=== PATIENT | female | born 1935 | race Caucasian/White ===

== ENCOUNTER 2017-07-24 17:05 | Observation (INO) | payer MEDICARE ==
[~2017-07-24] VITALS: Ht 170.2 cm; Wt 72.0 kg
[2017-07-24] VITALS (8 sets, daily range): BP systolic 154–189; BP diastolic 74–94; PULSE 72–93; RESP 18; TEMP 97.2–97.7; O2SAT 96–97
[~2017-07-24 17:05] MED LIST: ATEN1TAB74 PO; COUM1TAB PO; CYAN1000P IM; ECOT81TA2 PO; FENO160T2 PO; FLON0.053; FURO10S PO; GLYB1TAB51 PO; LIPI40TA PO; LISI10TA PO; MONT10 PO; POTA20PA PO; PRIL40CA PO; SYMB80AE INH; WARF2TAB PO
[2017-07-24] MEDS ORDERED: VITA1000 PO (17:11)
[2017-07-24] MEDS ORDERED: SYMB80AE INH (17:11)
[2017-07-24] MEDS ORDERED: WARF4TAB51 PO (17:11)
[2017-07-24] MEDS ORDERED: FENO1CAP29 PO (17:11)
[2017-07-24] MEDS ORDERED: LISI10TA3 PO (17:11)
[2017-07-24] MEDS ORDERED: IPRA0.06 EACH NARE (17:11)
[2017-07-24] MEDS ORDERED: OMEP40CA2 PO (17:11)
[2017-07-24] MEDS ORDERED: GLIP5TAB8 PO (17:11)
[2017-07-24] MEDS ORDERED: ATOR40TA16 PO (17:11)
[2017-07-24] MEDS ORDERED: ATEN50TA PO (17:11)
--- NOTE | 2017-07-24 17:23 | PD ---
HPI Chief Complaint: Chest Pain Time Seen by Provider: 17:23 Travel History International Travel<30 days: No Contact w/Intl Traveler<30days: No Traveled to known affect area: No History of Present Illness HPI 81-year-old female came to the emergency room with history of chest pain bilaterally running all the way across in the lower part of her chest. Patient' s that this is been going on since this morning. Exertion or movement makes the pain worse. Laying down makes the pain go away. Currently she is 0 out of 10. It is no radiation of the pain. Patient has history of hypertension, diabetes, A. fib. She is not a smoker. 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 She is due for carotid endarterectomy next month. No associated symptoms like shortness of breath, dizziness, lightheadedness or syncopal episode. PFSH Past Medical History Narrative Medical This to her past medical, surgical, social and family history is reviewed from the nursing note. Hx Anticoagulant Therapy: Yes Arthritis: Yes Asthma: Yes Atrial Fibrillation: Yes Blood Disorders: No Anxiety: Yes Depression: Yes Heart Rhythm Problems: Yes (A FIB) Cancer: Yes (SKIN CANCER FOREHEAD) Cardiovascular Problems: Yes High Cholesterol: Yes Chemotherapy: No Chest Pain: No Congestive Heart Failure: No COPD: Yes Diabetes: Yes Patient Takes Glucophage: No Diminished Hearing: No Endocrine: Yes Gastrointestinal Disorders: Yes (GERD) GERD: Yes Glaucoma: No Genitourinary: No Hepatitis: No Hiatal Hernia: No Hypertension: Yes Immune Disorder: No Medical other: Yes (ANEMIA,REFLUX, GERD) Musculoskeletal: Yes (ARTHRITIS) Neurologic: No Psychiatric: No Reproductive: No Respiratory: Yes (ASTHMA, COPD, BRONCHITIES, SLEEP APNEA W CPAP) Immunizations Current: Yes Migraines: Yes Myocardial Infarction: No Sickle Cell Disease: No Sleep Apnea: Yes Thyroid Disease: Yes (HX OF) Influenza Vaccination: Yes ?: Not Menopausal: Yes Past Surgical History Abdominal Surgery: Yes (APPENDECTOMY ) Appendectomy: Yes Body Medical Devices: CEMENT BACK (KYPHOPLASTY) Cardiac Surgery: No Ear Surgery: No Endocrine Surgery: No Eye Surgery: No Genitourinary Surgery: No Gynecologic Surgery: No Oral Surgery: Yes (T & A) Pacemaker: No Thoracic Surgery: No Other Surgery: Yes (HERNIA REPAIR) Social History Alcohol Use: No Tobacco Use: No (QUIT LONG AGO) Substance Use: No Allergies-Medications (Allergen,Severity, Reaction): Coded Allergies: No Known Allergies (Verified Allergy, Unknown, 07/24/17) Comments No known drug allergies. Reported Meds & Prescriptions Reported Meds & Active Scripts Active Reported Vitamin D-1000 (Cholecalciferol) 1,000 Unit Tab 1,000 Units PO DAILY Symbicort Inh (Budesonide/Formoterol Fumarate) 80-4.5 Mcg/Act Aero 2 Puff INH Q12HR Ipratropium Nasal 0.06% [place] 1 [place] EACH NARE TID Warfarin 2 Mg Tab 2 Mg PO DAILY Atorvastatin (Atorvastatin Calcium) 40 Mg Tab 40 Mg PO DAILY Glipizide 5 Mg Tab 2.5 Mg PO BIDAC Take 30 minutes before a meal Lisinopril 10 Mg Tab 10 Mg PO DAILY Omeprazole 40 Mg Cap 40 Mg PO DAILY Atenolol 50 Mg Tab 50 Mg PO BID Fenofibrate 150 Mg Cap 150 Mg PO DAILY Narrative Medication List of her home medications reviewed from the nursing note. Review of Systems Except as stated in HPI: all other systems reviewed are Neg Cardiovascular: Positive: Chest Pain or Discomfort Physical Exam Narrative GENERAL: Awake, alert, anxious, mild distress SKIN: Focused skin assessment warm/dry. HEAD: Atraumatic. Normocephalic. EYES: Pupils equal and round. No scleral icterus. No injection or drainage. ENT: No nasal bleeding or discharge. Mucous membranes pink and moist. NECK: Trachea midline. No JVD. CARDIOVASCULAR: Regular rate and rhythm. No murmur appreciated. RESPIRATORY: No accessory muscle use. Clear to auscultation. Breath sounds equal bilaterally. GASTROINTESTINAL: Abdomen soft, non-tender, nondistended. Hepatic and splenic margins not palpable. MUSCULOSKELETAL: No obvious deformities. No clubbing. No cyanosis. No edema. NEUROLOGICAL: Awake and alert. No obvious cranial nerve deficits. Motor grossly within normal limits. Normal speech. PSYCHIATRIC: Appropriate mood and affect; insight and judgment normal. Data Data Last Documented VS Vital Signs Date Time Temp Pulse Resp B/P (MAP) Pulse Ox O2 Delivery O2 Flow Rate FiO2 07/24/17 17:29 97 Room Air 07/24/17 17:29 78 18 165/93 (117) 07/24/17 17:12 97.7 Orders Orders Electrocardiogram (07/24/17 17:23) Basic Metabolic Panel (Bmp) (07/24/17 17:23) Ckmb (Isoenzyme) Profile (07/24/17 17:23) Complete Blood Count With Diff (07/24/17 17:23) Magnesium (Mg) (07/24/17 17:23) Prothrombin Time / Inr (Pt) (07/24/17 17:23) Act Partial Throm Time (Ptt) (07/24/17 17:23) Troponin I (07/24/17 17:23) Chest, Single Ap (07/24/17 17:23) Ecg Monitoring (07/24/17 17:23) Bilateral Bp Monitoring (07/24/17 17:23) Iv Access Insert/Monitor (07/24/17 17:23) Oximetry (07/24/17 17:23) Oxygen Administration (07/24/17 17:23) Sodium Chloride 0.9% Flush (Ns Flush) (07/24/17 17:30) CKMB (07/24/17 17:20) CKMB% (07/24/17 17:20) Place In Observation (07/24/17 ) Vital Signs (Adult) HELADIO.Q4H (07/24/17 18:02) Activity Bed Rest (07/24/17 18:02) Chicken Vaccinator / Telemetry HELADIO.Q8H (07/24/17 18:02) Troponin I (07/24/17 18:02) Troponin I (07/25/17 00:02) Troponin I (07/25/17 06:02) Admit Order (Ed Use Only) (07/24/17 18:05) Atenolol (Tenormin) (07/24/17 21:00) Atorvastatin (Lipitor) (07/25/17 09:00) Budeson-Formot 80-4.5 Mcg Inh (Symbicort (07/24/17 21:00) Cholecalciferol (Vitamin D3) (07/25/17 09:00) Fenofibrate (Tricor) (07/25/17 09:00) Patient Own Medication (07/25/17 09:00) Pantoprazole (Protonix) (07/25/17 09:00) Npo After Midnight W/ Po Meds (07/24/17 Dinner) Aspirin (Aspirin) (07/24/17 18:15) Labs Laboratory Tests Test 07/24/17 17:20 White Blood Count 9.9 TH/MM3 Red Blood Count 4.38 MIL/MM3 Hemoglobin 13.6 GM/DL Hematocrit 41.7 % Mean Corpuscular Volume 95.3 FL Mean Corpuscular Hemoglobin 31.1 PG Mean Corpuscular Hemoglobin Concent 32.6 % Red Cell Distribution Width 13.9 % Platelet Count 226 TH/MM3 Mean Platelet Volume 9.2 FL Neutrophils (%) (Auto) 69.7 % Lymphocytes (%) (Auto) 20.1 % Monocytes (%) (Auto) 9.0 % Eosinophils (%) (Auto) 0.5 % Basophils (%) (Auto) 0.7 % Neutrophils # (Auto) 6.9 TH/MM3 Lymphocytes # (Auto) 2.0 TH/MM3 Monocytes # (Auto) 0.9 TH/MM3 Eosinophils # (Auto) 0.0 TH/MM3 Basophils # (Auto) 0.1 TH/MM3 CBC Comment DIFF FINAL Differential Comment Prothrombin Time 25.8 SEC Prothromb Time International Ratio 2.6 RATIO Activated Partial Thromboplast Time 33.8 SEC Blood Urea Nitrogen 14 MG/DL Creatinine 0.79 MG/DL Random Glucose 227 MG/DL Calcium Level 8.7 MG/DL Magnesium Level 1.8 MG/DL Sodium Level 137 MEQ/L Potassium Level 3.6 MEQ/L Chloride Level 101 MEQ/L Carbon Dioxide Level 27.0 MEQ/L Anion Gap 9 MEQ/L Estimat Glomerular Filtration Rate 70 ML/MIN Total Creatine Kinase 127 U/L Creatine Kinase MB 1.9 NG/ML Troponin I 0.04 NG/ML [facility] Medical Decision Making Medical Screen Exam Complete: Yes Emergency Medical Condition: Yes Medical Record Reviewed: Yes Interpretation(s) Twelve-lead EKG was reviewed by . Jose. fib, normal axis, lateral ST depressions. Heart rate of 90 bpm. Differential Diagnosis ACS, non-STEMI Narrative Course 5:54 PM the test results are back. Troponin is 0.04. However given her age and some EKG findings I would like to admit her and beat ruled out for ACS. Awaiting for the hospitalist to call back. Patient's INR is therapeutic. Procedures EKG Prior to Arrival: No Diagnosis Primary Impression: Chest pain Qualified Codes: R07.9 - Chest pain, unspecified Admitting Information Admitting Physician Requests: Observation Farzaneh,Shravanti R. MD Jul 24, 2017 17:23
[2017-07-24 17:30] LABS: AUTOMATED NEUTROPHIL # 6.9 TH/MM3 (1.8-7.7); BASOPHIL # 0.1 TH/MM3 (0-0.2); BASOPHIL % 0.7 % (0.0-2.0); EOSINOPHIL % 0.5 % (0.0-4.0); HEMATOCRIT 41.7 % (35.0-46.0); HEMOGLOBIN 13.6 GM/DL (11.6-15.3); LYMPH % 20.1 % (9.0-44.0); MEAN CELL VOLUME 95.3 FL (80.0-100.0); MEAN CORPUSCULAR HEMOGLOBIN 31.1 PG (27.0-34.0); MEAN CORPUSCULAR HGB CONC 32.6 % (32.0-36.0); MEAN PLATELET VOLUME 9.2 FL (7.0-11.0); MONOCYTE # 0.9 TH/MM3 (0-0.9); NEUT % 69.7 % (16.0-70.0); PLATELET COUNT 226 TH/MM3 (150-450); RED BLOOD COUNT 4.38 MIL/MM3 (4.00-5.30); RED CELL DISTRIBUTION WIDTH 13.9 % (11.6-17.2); WHITE BLOOD COUNT 9.9 TH/MM3 (4.0-11.0)
[2017-07-24] MEDS ORDERED: SODIUM CHLORIDE 0.9% FLUSH 10 ML FLUSH IVF PRN (17:30)
[2017-07-24 17:38] LABS: CHLORIDE 101 MEQ/L (98-107); SODIUM (NA) 137 MEQ/L (136-145)
[2017-07-24 17:41] LABS: BLOOD UREA NITROGEN 14 MG/DL (7-18); CALCIUM 8.7 MG/DL (8.5-10.1); GLUCOSE,RANDOM 227 MG/DL (74-106); MAGNESIUM 1.8 MG/DL (1.5-2.5)
[2017-07-24 17:42] LABS: INTERNATIONAL NORMALIZED RATIO 2.6 RATIO; PROTHROMBIN TIME - PATIENT 25.8 SEC (9.8-11.6)
[2017-07-24 17:45] LABS: CREATININE 0.79 MG/DL (0.50-1.00); GLOMERULAR FILTRATION RATE 70 ML/MIN (>89)
[2017-07-24 17:49] LABS: TROPONIN I 0.04 NG/ML (0.02-0.05)
--- NOTE | 2017-07-24 18:13 | RADRPT ---
EXAM DATE/TIME: 07/24/2017 17:50 [facility] COMPARISON: No previous studies available for comparison. INDICATIONS : Chest pain, cough MEDICAL HISTORY : Chronic obstructive pulmonary disease. Diabetes mellitus type II. Hypertension. SURGICAL HISTORY : Kyphoplasty. ENCOUNTER: Initial ACUITY: 1 day PAIN SCORE: 4/10 LOCATION: Bilateral chest FINDINGS: There is mild bibasilar atelectasis. I believe there may be a tiny pleural effusion at the left base. No pneumothorax. Heart size within normal limits. Thoracic aorta is tortuous and atherosclerotic. CONCLUSION: Trace bibasilar atelectasis and tiny left pleural effusion. Haroon Bermeo MD on July 24, 2017 at 18:09 Board Certified Radiologist. This report was verified electronically.
[2017-07-24] MEDS ORDERED: ASPIRIN 325 MG TAB PO ONE (18:15)
[2017-07-24] MEDS: BUDESONIDE-FORMOTEROL 80/4.5 MCG INHALER INH SCH (21:20)
[2017-07-24] MEDS: ATENOLOL 50 MG TAB PO SCH (21:20)
[2017-07-25 00:04] VITALS: BP 144/70; PULSE 70; RESP 18; TEMP 97.9; O2SAT 94
[2017-07-25 04:33] VITALS: BP 165/72; PULSE 68; RESP 16; TEMP 98; O2SAT 99
[2017-07-25 07:01] VITALS: PULSE 84
[2017-07-25 07:50] VITALS: BP 178/85; PULSE 78; RESP 20; TEMP 97.9; O2SAT 94
[2017-07-25] MEDS: ATENOLOL 50 MG TAB PO SCH (08:00)
[2017-07-25] MEDS: BUDESONIDE-FORMOTEROL 80/4.5 MCG INHALER INH SCH (08:06)
[2017-07-25] MEDS ORDERED: FENOFIBRATE 145 MG TAB PO SCH (09:00)
[2017-07-25] MEDS ORDERED: ATORVASTATIN 40 MG TAB PO SCH (09:00)
[2017-07-25] MEDS ORDERED: CHOLECALCIFEROL (VIT D3) 1000 UNIT TAB PO SCH (09:00)
[2017-07-25] MEDS ORDERED: PANTOPRAZOLE SOD 40 MG DELAYED RELEASE TAB PO SCH (09:00)
[2017-07-25] MEDS ORDERED: IPRATROPIUM NASAL SCH (09:00)
--- NOTE | 2017-07-25 09:15 | HHI.HP ---
[facility] No Primary Care Physician Admission Diagnosis Chest pain, rule out ACS Diagnoses: (1) Chest pain Chief Complaint: Chest pain Travel History International Travel<30 Days: No Contact w/Intl Traveler <30 Da: No Traveled to Known Affected Are: No History of Present Illness Written by Hiral Nelson, acting as scribe for Dr. Gonzales on 07/25/17 at 09:15. This is a pleasant 81-year-old female patient with a known medical history recheck fibrillation, hyper lipidemia, COPD and hypertension who presented to the ED with complaints of chest pain. Patient states that after eating breakfast yesterday she developed a chest pain that occur in her midsternal chest and extended under her bilateral breasts and up her sternum. Patient characterizes pain is dull and sharp in nature, is intermittent, admits to associated shortness of breath, denies any nausea or vomiting. Patient states she's never had this type of pain before. Rates the pain a four out of ten on pain scale at its worst. Patient states that bending over and movement makes the pain worse. Denies any alleviating factors. Denies any recent illness including fever, chills, abdominal pain, diarrhea or dysuria. Patient does follow with Dr. Auguste, cardiology, and has an appointment with him next month for a carotid endarterectomy. Does admit to a previous cardiac stress test roughly 2 years ago which was reportedly unremarkable. PCP is Dr. Pavon. Troponins are flat. EKG upon presentation showing atrial flutter. Chest x-ray showing left tiny pleural effusion. Review of Systems Constitutional: DENIES: Fever, Chills Respiratory: COMPLAINS OF: Cough, Shortness of breath Cardiovascular: COMPLAINS OF: Chest pain Gastrointestinal: DENIES: Abdominal pain, Black stools, Bloody stools, Constipation, Diarrhea, Nausea, Vomiting Musculoskeletal: DENIES: Joint pain Hematologic/lymphatic: DENIES: Bruising Immunologic/allergic: DENIES: Eczema Neurologic: DENIES: Abnormal gait Psychiatric: COMPLAINS OF: Anxiety Except as stated in HPI: all other systems reviewed are Neg Past Family Social History Past Medical History Atrial fibrillation on Coumadin Hypertension Anxiety and depression History of skin cancer Hyperlipidemia COPD GERD Sleep apnea Past Surgical History Appendectomy Right knee replacement History of kyphoplasty Hernia repair Reported Medications Active Reported Vitamin D-1000 (Cholecalciferol) 1,000 Unit Tab 1,000 Units PO DAILY Symbicort Inh (Budesonide/Formoterol Fumarate) 80-4.5 Mcg/Act Aero 2 Puff INH Q12HR Ipratropium Nasal 0.06% [place] 1 [place] EACH NARE TID Warfarin 2 Mg Tab 2 Mg PO DAILY Atorvastatin (Atorvastatin Calcium) 40 Mg Tab 40 Mg PO DAILY Glipizide 5 Mg Tab 2.5 Mg PO BIDAC Take 30 minutes before a meal Lisinopril 10 Mg Tab 10 Mg PO DAILY Omeprazole 40 Mg Cap 40 Mg PO DAILY Atenolol 50 Mg Tab 50 Mg PO BID Fenofibrate 150 Mg Cap 150 Mg PO DAILY Allergies: Coded Allergies: No Known Allergies (Verified Allergy, Unknown, 07/24/17) Active Ordered Medications Current Medications Medications (Trade) Dose Ordered Sig/Ritchie Route Start Time Stop Time Status Last Admin (NS Flush) 2 ml UNSCH PRN IVF 07/24/17 17:30 (Tenormin) 50 mg BID PO 07/24/17 21:00 07/25/17 08:00 (Lipitor) 40 mg DAILY PO 07/25/17 09:00 07/25/17 08:01 (Symbicort 80-4.5 Mcg Inh) 2 puff Q12HR INH 07/24/17 21:00 07/25/17 08:06 (Vitamin D3) 1,000 units DAILY PO 07/25/17 09:00 07/25/17 08:01 (Tricor) 145 mg DAILY PO 07/25/17 09:00 07/25/17 08:01 Patient Own Medication PT OWN MED: (Ipratropium Nasal... TID NASAL 07/25/17 09:00 Future Hold (Protonix) 40 mg DAILY PO 07/25/17 09:00 07/25/17 08:01 Family History Paternal medical history significant for cancer and DC, at the age of 63. Social History Denies any current tobacco use, states she quit over twenty years ago. Denies any alcohol or illicit drug use. Physical Exam Vital Signs Vital Signs Date Time Temp Pulse Resp B/P (MAP) Pulse Ox O2 Delivery O2 Flow Rate FiO2 07/25/17 04:33 98.0 68 16 165/72 (103) 99 07/25/17 00:04 97.9 70 18 144/70 (94) 94 07/24/17 23:45 72 07/24/17 21:27 97.4 82 18 97 07/24/17 20:25 174/81 (112) 07/24/17 19:42 97.2 80 18 166/80 (108) 98 07/24/17 18:31 74 18 154/74 (100) 97 Room Air 07/24/17 18:29 74 07/24/17 17:29 97 Room Air 07/24/17 17:29 78 18 165/93 (117) 97 Room Air 07/24/17 17:24 80 18 167/94 (118) 97 Room Air 07/24/17 17:16 93 07/24/17 17:12 97.7 93 18 189/87 (121) 96 Physical Exam GENERAL: Well-nourished, well-developed patient in NAD. SKIN: Warm and dry. No rash. HEAD: Normocephalic. Atraumatic. EYES: Pupils equal and round. No scleral icterus. No injection or drainage. ENT: No nasal bleeding or discharge. Mucous membranes pink and moist. NECK: Supple. Trachea midline. CARDIOVASCULAR: Regular rate and rhythm. S1, S2 noted. No murmur appreciated. No reproducible chest pain to palpation. RESPIRATORY: No accessory muscle use. Clear to auscultation. Breath sounds equal bilaterally. GASTROINTESTINAL: Abdomen soft, non-tender, nondistended. Normoactive bowel sounds x4. MUSCULOSKELETAL: No obvious deformities. Extremities without clubbing, cyanosis , or edema. NEUROLOGICAL: Awake and alert. No obvious cranial nerve deficits. Motor grossly within normal limits. 5/5 muscle strength in bilateral upper and lower extremities. Normal speech. PSYCHIATRIC: Appropriate mood and affect; insight and judgment normal. Laboratory Laboratory Tests Test 07/24/17 17:20 07/24/17 18:15 07/25/17 00:11 07/25/17 06:59 White Blood Count 9.9 Red Blood Count 4.38 Hemoglobin 13.6 Hematocrit 41.7 Mean Corpuscular Volume 95.3 Mean Corpuscular Hemoglobin 31.1 Mean Corpuscular Hemoglobin Concent 32.6 Red Cell Distribution Width 13.9 Platelet Count 226 Mean Platelet Volume 9.2 Neutrophils (%) (Auto) 69.7 Lymphocytes (%) (Auto) 20.1 Monocytes (%) (Auto) 9.0 Eosinophils (%) (Auto) 0.5 Basophils (%) (Auto) 0.7 Neutrophils # (Auto) 6.9 Lymphocytes # (Auto) 2.0 Monocytes # (Auto) 0.9 Eosinophils # (Auto) 0.0 Basophils # (Auto) 0.1 CBC Comment DIFF FINAL Differential Comment Prothrombin Time 25.8 Prothromb Time International Ratio 2.6 Activated Partial Thromboplast Time 33.8 Blood Urea Nitrogen 14 Creatinine 0.79 Random Glucose 227 Calcium Level 8.7 Magnesium Level 1.8 Sodium Level 137 Potassium Level 3.6 Chloride Level 101 Carbon Dioxide Level 27.0 Anion Gap 9 Estimat Glomerular Filtration Rate 70 Total Creatine Kinase 127 Creatine Kinase MB 1.9 Troponin I 0.04 0.04 0.05 0.06 Result Diagram: 07/24/17 1720 07/24/17 1720 Imaging Last Impressions Chest X-Ray 07/24/17 1723 Signed Impressions: Service Date/Time: Monday, July 24, 2017 17:50 - CONCLUSION: Trace bibasilar atelectasis and tiny left pleural effusion. Haroon Bermeo MD Septic Shock Reassessment Septic shock perfusion: reassessment completed Caprini VTE Risk Assessment Caprini VTE Risk Assessment: Mod/High Risk (score >= 2) Caprini Risk Assessment Model Point Value = 1 Point Value = 2 Point Value = 3 Point Value = 5 Age 41-60 Minor surgery BMI > 25 kg/m2 Swollen legs Varicose veins or History of unexplained or recurrent spontaneous Oral contraceptives or hormone replacement Sepsis (< 1 month) Serious lung disease, including pneumonia (< 1 month) Abnormal pulmonary function Acute myocardial infarction Congestive heart failure (< 1 month) History of inflammatory bowel disease Medical patient at bed rest Age 61-74 Arthroscopic surgery Major open surgery (> 45 min) Laparoscopic surgery (> 45 min) Malignancy Confined to bed (> 72 hours) Immobilizing plaster cast Central venous access Age >= 75 History of VTE Family history of VTE Factor V Leiden Prothrombin [id number] Lupus anticoagulant Anticardiolipin antibodies Elevated serum homocysteine Heparin-induced thrombocytopenia Other congenital or acquired thrombophilia Stroke (< 1 month) Elective arthroplasty Hip, pelvis, or leg fracture Acute spinal cord injury (< 1 month) Prophylaxis Regimen Total Risk Factor Score Risk Level Prophylaxis Regimen 0-1 Low Early ambulation 2 Moderate Order ONE of the following: *Sequential Compression Device (SCD) *Heparin 5000 units SQ BID 3-4 Higher Order ONE of the following medications: *Heparin 5000 units SQ TID *Enoxaparin/Lovenox 40 mg SQ daily (WT < 150 kg, CrCl > 30 mL/min) *Enoxaparin/Lovenox 30 mg SQ daily (WT < 150 kg, CrCl > 10-29 mL/min) *Enoxaparin/Lovenox 30 mg SQ BID (WT < 150 kg, CrCl > 30 mL/min) AND/OR *Sequential Compression Device (SCD) 5 or more Highest Order ONE of the following medications: *Heparin 5000 units SQ TID (Preferred with Epidurals) *Enoxaparin/Lovenox 40 mg SQ daily (WT < 150 kg, CrCl > 30 mL/min) *Enoxaparin/Lovenox 30 mg SQ daily (WT < 150 kg, CrCl > 10-29 mL/min) *Enoxaparin/Lovenox 30 mg SQ BID (WT < 150 kg, CrCl > 30 mL/min) AND *Sequential Compression Device (SCD) Assessment and Plan Problem List: (1) Chest pain ICD Code: R07.9 - Chest pain, unspecified Status: Acute Assessment and Plan This is a pleasant 81-year-old female patient with a known medical history recheck fibrillation, hyper lipidemia, COPD and hypertension who presented to the ED with complaints of chest pain. Chest pain Patient has been admitted to the chest pain center for observation. Serial EKGs and serial troponins have been ordered for ruling out ACS purposes. Troponins are flat. EKG reviewed showing atrial flutter, patient admits to history of, on Coumadin. Chest pain has not resolved. Chest x-ray reviewed showing small left tiny pleural effusion with trace bibasilar atelectasis. Patient has been comfortable on room air. Patient does have many risk factors including hypertension, family history, hyperlipidemia. Will undergo a cardiac nuclear stress test to further rule out any ischemia. Further hospitalization treatment plan will depend on nuclear imaging results. Follow. Hyperlipidemia, chronic: Continue home atorvastatin and peanut primary. COPD: Continue home inhaler. GI prophylaxis: Protonix. DVT prophylaxis: SCDs. Coumadin. This note was transcribed by arnaldo Nelson. I, Dr. Lencho Gonzales personally performed the history, physical exam, and medical decision making; and confirmed the accuracy of the information in the transcribed note. Authenticated by Dr. Lencho Gonzales on 07/25/17 at 09:15. Patient underwent cardiac nuclear stress test which was negative, no ischemia noted. EF 66%. Patient updated about results, stable at this time. Encouraged to follow-up with PCP upon discharge. If symptoms persist or worsen encourage patient to return to the ED. Patient is understandable the plan. Code Status Full code Discussed Condition With Patient Problem Qualifiers (1) Chest pain: Qualified Codes: R07.9 - Chest pain, unspecified Hiral Nelson Jul 25, 2017 09:15 Lencho Gonzales MD Jul 25, 2017 09:15
[2017-07-25 11:50] VITALS: BP 141/85; PULSE 77; RESP 20; TEMP 96.5; O2SAT 95
[2017-07-25] MEDS ORDERED: LISINOPRIL 10 MG TAB PO SCH (12:00)
--- NOTE | 2017-07-25 12:24 | EKG ---
Date Performed: 07/24/2017 Time Performed: 17:10:49 PTAGE: 81 years EKG: ATRIAL FIBRILLATION MODERATE ST DEPRESSION ABNORMAL ECG INTERPRETATION BASED ON A DEFAULT A GE OF 40 YEARS PREVIOUS TRACING : 11/20/2013 11.08 Since the prior tracing, there has been no significan t change DOCTOR: Lisandro Mcginnis Interpretating Date/Time 07/25/2017 12:21:50
--- NOTE | 2017-07-25 13:25 | RADRPT ---
EXAM DATE/TIME: 07/25/2017 11:21 [facility] COMPARISON: No previous studies available for comparison. INDICATIONS : Bilateral chest pain. Angina. Atrial fibrillation. DOSE: 27.1 mCi Tc99m Myoview at stress. 8.7 mCi Tc99m Myoview at rest. 0.4 mg Lexiscan STRESS SYMPTOMS: Chest pressure and dyspnea. EJECTION FRACTION: 66% MEDICAL HISTORY : Diabetes mellitus type 2. Chronic obstructive pulmonary disease. Hypercholesterolemia. Hypertension. GERD. SURGICAL HISTORY : Appendectomy. ENCOUNTER: Initial ACUITY: 1 day PAIN SCALE: 7/10 LOCATION: Bilateral chest TECHNIQUE: The patient underwent pharmacologic stress with infusion of prescribed dose. Continuous ECG tracing was monitored during stress. Gated SPECT imaging was performed after stress and conventional SPECT i maging was performed at rest. The examination was performed on a SPECT/CT scanner, both attenuation and non-corrected datasets were reviewed. FINDINGS: DISTRIBUTION: The maximum perfused segment at stress is in the inferior wall. PERFUSION STUDY: The pattern of perfusion at stress is within normal limits. GATED STUDY: There is intact wall motion and thickening without hypokinetic or dyskinetic segments. CONCLUSION: No focal wall motion abnormalities. No reversible perfusion defects. RISK CATEGORY: 1- Low Risk. Van Roe MD on July 25, 2017 at 13:20 Board Certified Radiologist. This report was verified electronically.
[2017-07-25 13:26] VITALS: PULSE 77
--- NOTE | 2017-07-25 14:09 | HHI.DCPOC ---
Discharge Care Plan Diagnosis: (1) Chest pain Goals to Promote Your Health * To prevent worsening of your condition and complications * To maintain your health at the optimal level Directions to Meet Your Goals Take your medications as prescribed Follow your dietary instruction Follow activity as directed Keep your appointments as scheduled Take your immunizations and boosters as scheduled If your symptoms worsen call your PCP, if no PCP go to Urgent Care Center or Emergency Room Smoking is Dangerous to Your Health. Avoid second hand smoke Call the 24-hour hour crisis hotline for domestic abuse at Hiral Nelson Jul 25, 2017 14:09
--- NOTE | 2017-07-25 14:29 | HHI.PR ---
Addendum to Inpatient Note Addendum Reason: Additional Documentation Additional Information Stress test negative therefore patient will be discharged home Discharge patient to home Condition on discharge: Improved Regular Diet as tolerated Ad Megan activity Rx written:none Follow-up with primary care physician in1 week Lencho Gonzales MD Jul 25, 2017 14:29
[2017-07-25] MEDS ORDERED: WARFARIN SOD 2 MG TAB PO SCH (16:00)
[2017-07-25] MEDS ORDERED: REGADENOSON INJ 0.4 MG/5 ML SYR IV ONE (18:13)
--- NOTE | 2017-07-26 13:05 | TR ---
Date Performed: 07/25/2017 Time Performed: 11:49:11 DOCTOR: Martell Orellana DRUG LIST: CLINICAL HISTORY: REASON FOR TEST: Chest pain REASON FOR ENDING: OBSERVATION: CONCLUSION: Lexiscan stress test was performed under standard four minute protocol. Radionuclid e was injected one minute prior to ending the test. Non- specific ST-T changes present throughout sang ting, but no changes to suggest ischemia. Nuclear imaging and interpretation are pending. COMMENTS:
== END 2017-07-25 15:01 | disposition home or self-care (01) ==
LOC: PHED 17:05 → PHEDA 18:12 → PH3A 19:35
PROVIDERS: ADMIT Hospitalist; ATTEND Hospitalist
DX: R07.9 Chest pain, unspecified (principal); I10 Essential (primary) hypertension; R94.31 Abnormal electrocardiogram [ECG] [EKG]; E11.9 Type 2 diabetes mellitus without complications; I48.91 Unspecified atrial fibrillation; I48.92 Unspecified atrial flutter; J44.9 Chronic obstructive pulmonary disease, unspecified; E78.5 Hyperlipidemia, unspecified; G47.30 Sleep apnea, unspecified; J98.11 Atelectasis; K21.9 Gastro-esophageal reflux disease without esophagitis; Z79.01 Long term (current) use of anticoagulants; Z79.84 Long term (current) use of oral hypoglycemic drugs; Z85.828 Personal history of other malignant neoplasm of skin; Z96.651 Presence of right artificial knee joint
CPT/HCPCS: 71045; 78452; 80048; 82550; 82552; 82948; 83735; 84484; 85025; 85610; 85730; 93005; 93017; 99285; A9502; G0378; J2785

== ENCOUNTER 2017-08-14 18:01 | Emergency (ER) | payer MEDICARE ==
[~2017-08-14] VITALS: Ht 167.6 cm; Wt 70.6 kg
[~2017-08-14 18:01] MED LIST changes: -ATEN1TAB74 PO; +ATEN50TA PO; +ATOR40TA16 PO; -COUM1TAB PO; -CYAN1000P IM; -ECOT81TA2 PO; -FENO160T2 PO; +FENO1CAP29 PO; -FLON0.053; -FURO10S PO; +GLIP5TAB8 PO; -GLYB1TAB51 PO; +IPRA0.06 EACH NARE; -LIPI40TA PO; -LISI10TA PO; +LISI10TA3 PO; -MONT10 PO; +OMEP40CA2 PO; -POTA20PA PO; -PRIL40CA PO; +VITA1000 PO; -WARF2TAB PO; +WARF4TAB51 PO
[2017-08-14 18:38] VITALS: BP 199/102; PULSE 75; RESP 16; TEMP 98.2; O2SAT 98
[2017-08-14] MEDS ORDERED: VITA1000 PO (18:47)
[2017-08-14] MEDS ORDERED: [UNRECOGNIZED DRUG - CODE] SQ (18:47)
[2017-08-14] MEDS ORDERED: KETOROLAC TROMETHAMINE 60 MG/2 ML (IM) VIAL IM ONE (19:45)
[2017-08-14] MEDS ORDERED: ORPHENADRINE INJ 60 MG/2 ML AMP IM ONE (19:45)
[2017-08-14] MEDS ORDERED: CYCL10TA PO (20:03)
--- NOTE | 2017-08-14 20:05 | PD ---
HPI Chief Complaint: Pain: Acute or Chronic Time Seen by Provider: 19:30 Travel History International Travel<30 days: No Contact w/Intl Traveler<30days: No Traveled to known affect area: No History of Present Illness HPI This is an 81-year-old female here with mid to low back pain ongoing for the last 2 months. She reports the pain is intermittent worse with movement and twisting of the torso and slightly relieved with rest. She reports this pain is similar to pain she's had in the back over the last several years. She has been evaluated by her primary physician Dr. Rios was told her this is musculoskeletal. She reports she was previously given a shot of a muscle relaxer which almost immediately eliminated the pain. She has been recently taking Ultram which causes her to feel drowsy therefore she is not taking it. She presents today for evaluation and requesting a medication that doesn't make her drowsy. He denies fever, chest pain, shortness of breath, abdominal pain, incontinence, paresthesia or weakness of the extremities. PFSH Past Medical History Hx Anticoagulant Therapy: Yes Arthritis: Yes Asthma: Yes Atrial Fibrillation: Yes Blood Disorders: No Anxiety: Yes Depression: Yes Heart Rhythm Problems: Yes (A FIB) Cancer: Yes (SKIN CANCER FOREHEAD) Cardiovascular Problems: Yes (afib) High Cholesterol: Yes Chemotherapy: No Chest Pain: No Congestive Heart Failure: No COPD: Yes Cerebrovascular Accident: Yes (TIA ) Diabetes: Yes Patient Takes Glucophage: No Diminished Hearing: No Endocrine: Yes Gastrointestinal Disorders: Yes (GERD) GERD: Yes Glaucoma: No Genitourinary: No Hepatitis: No Hiatal Hernia: No Hypertension: Yes Immune Disorder: No Medical other: Yes (ANEMIA,REFLUX, GERD) Musculoskeletal: Yes (ARTHRITIS) Neurologic: No Psychiatric: No Reproductive: No Respiratory: Yes Immunizations Current: Yes Migraines: Yes Myocardial Infarction: No Sickle Cell Disease: No Sleep Apnea: Yes Thyroid Disease: Yes (HYPO) Tetanus Vaccination: > 5 Years ?: Not Menopausal: Yes Past Surgical History Abdominal Surgery: Yes (APPENDECTOMY ) Appendectomy: Yes Body Medical Devices: CEMENT BACK (KYPHOPLASTY) Cardiac Surgery: No Ear Surgery: No Endocrine Surgery: No Eye Surgery: No Genitourinary Surgery: No Gynecologic Surgery: No Oral Surgery: Yes (T & A) Pacemaker: No Thoracic Surgery: No Tonsillectomy: Yes Other Surgery: Yes (HERNIA REPAIR) Social History Alcohol Use: No Tobacco Use: No (QUIT LONG AGO) Substance Use: No Allergies-Medications (Allergen,Severity, Reaction): Coded Allergies: No Known Allergies (Verified Allergy, Unknown, 07/24/17) Reported Meds & Prescriptions Reported Meds & Active Scripts Active Reported Vitamin D-1000 (Cholecalciferol) 1,000 Unit Tab 1,000 Units PO DAILY Vitamin B-12 (Cyanocobalamin (Vitamin B-12)) 1,000 Mcg/Ml Drops 1 Ml SQ MONTHLY Symbicort Inh (Budesonide/Formoterol Fumarate) 80-4.5 Mcg/Act Aero 2 Puff INH Q12HR Ipratropium Nasal 0.06% [place] 1 [place] EACH NARE TID Warfarin 2 Mg Tab 2 Mg PO DAILY Atorvastatin (Atorvastatin Calcium) 40 Mg Tab 40 Mg PO DAILY Glipizide 5 Mg Tab 2.5 Mg PO BIDAC Take 30 minutes before a meal Lisinopril 10 Mg Tab 10 Mg PO DAILY Omeprazole 40 Mg Cap 40 Mg PO DAILY Atenolol 50 Mg Tab 50 Mg PO BID Fenofibrate 150 Mg Cap 150 Mg PO DAILY Review of Systems Except as stated in HPI: all other systems reviewed are Neg General / Constitutional: No: Fever Eyes: No: Visual changes HENT: No: Headaches Cardiovascular: No: Chest Pain or Discomfort Respiratory: No: Shortness of Breath Gastrointestinal: No: Abdominal Pain Genitourinary: No: Dysuria Skin: No Rash Neurologic: No: Weakness Physical Exam Narrative GENERAL: Alert and well-appearing 81-year-old female. No distress. Resting comfortably on the stretcher. SKIN: Warm and dry. HEAD: Atraumatic. Normocephalic. EYES: Pupils equal and round. No scleral icterus. No injection or drainage. ENT: Mucous membranes pink and moist. NECK: Trachea midline. No JVD. CARDIOVASCULAR: Regular rate and rhythm. RESPIRATORY: No accessory muscle use. Clear to auscultation. Breath sounds equal bilaterally. GASTROINTESTINAL: Abdomen soft, non-tender, nondistended. No bruit. MUSCULOSKELETAL: Extremities without clubbing, cyanosis, or edema. No obvious deformities. NEUROLOGICAL: Awake and alert. No obvious cranial nerve deficits. Motor grossly within normal limits. Five out of 5 muscle strength in the arms and legs. Normal speech. Ambulating with steady gait BACK: No CVA tenderness. No point tenderness on palpation of the spine. + TTP thoracic/lumbar paraspinous musculature. Data Data Last Documented VS Vital Signs Date Time Temp Pulse Resp B/P (MAP) Pulse Ox O2 Delivery O2 Flow Rate FiO2 08/14/17 18:38 98.2 75 16 199/102 (134) 98 Orders Orders Ketorolac Inj (Toradol Inj) (08/14/17 19:45) Orphenadrine Inj (Norflex Inj) (08/14/17 19:45) MDM Medical Decision Making Medical Screen Exam Complete: Yes Emergency Medical Condition: Yes Differential Diagnosis Compression fracture, herniated disc, musculoskeletal pain, AAA Narrative Course This is a well-appearing 81-year-old female with ongoing back pain for the last several months. She is well-appearing. She has no midline spine tenderness. She does have tenderness of the thoracic/lumbar paraspinous musculature. She has a normal neurologic exam. She is given a shot of Toradol and Norflex and observed. On reexam She reports symptom improvement. Repeat BP 164/92 She is stable and ready for discharge Diagnosis Primary Impression: Low back pain Qualified Codes: M54.5 - Low back pain Referrals: Primary Care Physician Additional Instructions: Medication as directed. Follow-up with her primary doctor. Return if he developed new or worsening symptoms Scripts Cyclobenzaprine (Flexeril) 10 Mg Tab 10 MG PO TID for Muscle Spasm, #14 TAB 0 Refills Prov: Reny Martinez 08/14/17 Disposition: 01 DISCHARGE HOME Condition: Stable Reny Martinez Aug 14, 2017 20:05
== END 2017-08-14 20:13 | disposition home or self-care (01) ==
LOC: PHEFT 18:01
DX: M54.5 Low back pain (principal); I48.91 Unspecified atrial fibrillation; I10 Essential (primary) hypertension; Z79.01 Long term (current) use of anticoagulants
CPT/HCPCS: 96372; 99283; J1885; J2360

== ENCOUNTER 2017-09-03 04:13 | Emergency (ER) | payer MEDICARE ==
[~2017-09-03] VITALS: Ht 167.6 cm; Wt 67.0 kg
[~2017-09-03 04:13] MED LIST changes: +CYCL10TA PO; +[UNRECOGNIZED DRUG - CODE] SQ
[2017-09-03 04:30] VITALS: BP 180/92; PULSE 90; RESP 18; TEMP 98.4; O2SAT 97
--- NOTE | 2017-09-03 04:40 | PD ---
HPI Chief Complaint: Musculoskeletal Complaint Time Seen by Provider: 04:33 Travel History International Travel<30 days: No Contact w/Intl Traveler<30days: No Traveled to known affect area: No History of Present Illness HPI The patient is an 81-year-old female that for 2 months has had chronic back pain in the upper lumbar and upper thoracic spine. Today at 11:00 she is scheduled to get an MRI of the lumbar and thoracic spine. These both have been approved by her insurance company. She came to the emergency room tonight because she wants something for the pain. She states she cannot lie down flat without pain. She does not want to get an MRI here in the emergency department because she is not sure that her insurance companies will pay for it if she does it through the emergency department. She has pain medicines at home which include tramadol but tramadol makes her nauseated so she has not been taking it. It is possible that if we give her a nausea medicine to take along with the tramadol she will be able to tolerate lying flat in the MRI and keep her appointment. PFSH Past Medical History Hx Anticoagulant Therapy: Yes Arthritis: Yes Asthma: Yes Atrial Fibrillation: Yes Blood Disorders: No Anxiety: Yes Depression: Yes Heart Rhythm Problems: Yes (A FIB) Cancer: Yes (SKIN CANCER FOREHEAD) Cardiovascular Problems: Yes (afib) High Cholesterol: Yes Chemotherapy: No Chest Pain: No Congestive Heart Failure: No COPD: Yes Cerebrovascular Accident: Yes (TIA ) Diabetes: Yes Diminished Hearing: No Endocrine: Yes Gastrointestinal Disorders: Yes (GERD) GERD: Yes Glaucoma: No Genitourinary: No Hepatitis: No Hiatal Hernia: No Hypertension: Yes Immune Disorder: No Musculoskeletal: Yes (ARTHRITIS) Neurologic: No Psychiatric: No Reproductive: No Respiratory: Yes Immunizations Current: Yes Migraines: Yes Myocardial Infarction: No Sickle Cell Disease: No Sleep Apnea: Yes Thyroid Disease: Yes (HYPO) ?: Not Menopausal: Yes Past Surgical History Abdominal Surgery: Yes (APPENDECTOMY ) Appendectomy: Yes Body Medical Devices: CEMENT BACK (KYPHOPLASTY) Cardiac Surgery: No Ear Surgery: No Endocrine Surgery: No Eye Surgery: No Genitourinary Surgery: No Gynecologic Surgery: No Oral Surgery: Yes (T & A) Pacemaker: No Thoracic Surgery: No Tonsillectomy: Yes Other Surgery: Yes (HERNIA REPAIR) Social History Alcohol Use: No Tobacco Use: No (QUIT LONG AGO) Substance Use: No Allergies-Medications (Allergen,Severity, Reaction): Coded Allergies: No Known Allergies (Verified Allergy, Unknown, 09/03/17) Reported Meds & Prescriptions Reported Meds & Active Scripts Active Flexeril (Cyclobenzaprine HCl) 10 Mg Tab 10 Mg PO TID Reported Vitamin D-1000 (Cholecalciferol) 1,000 Unit Tab 1,000 Units PO DAILY Vitamin B-12 (Cyanocobalamin (Vitamin B-12)) 1,000 Mcg/Ml Drops 1 Ml SQ MONTHLY Symbicort Inh (Budesonide/Formoterol Fumarate) 80-4.5 Mcg/Act Aero 2 Puff INH Q12HR Ipratropium Nasal 0.06% [place] 1 [place] EACH NARE TID Warfarin 2 Mg Tab 2 Mg PO DAILY Atorvastatin (Atorvastatin Calcium) 40 Mg Tab 40 Mg PO DAILY Glipizide 5 Mg Tab 2.5 Mg PO BIDAC Take 30 minutes before a meal Lisinopril 10 Mg Tab 10 Mg PO DAILY Omeprazole 40 Mg Cap 40 Mg PO DAILY Atenolol 50 Mg Tab 50 Mg PO BID Fenofibrate 150 Mg Cap 150 Mg PO DAILY Review of Systems Except as stated in HPI: all other systems reviewed are Neg Physical Exam Narrative GENERAL: The patient is alert, oriented 3, fairly comfortable when sitting up at about 30 head elevation. Her vital signs show blood pressure 180/92 but are otherwise normal. SKIN: Focused skin assessment warm/dry. HEAD: Atraumatic. Normocephalic. EYES: Pupils equal and round. No scleral icterus. No injection or drainage. ENT: No nasal bleeding or discharge. Mucous membranes pink and moist. NECK: Trachea midline. No JVD. CARDIOVASCULAR: Regular rate and rhythm. No murmur appreciated. RESPIRATORY: No accessory muscle use. Clear to auscultation. Breath sounds equal bilaterally. GASTROINTESTINAL: Abdomen soft, non-tender, nondistended. Hepatic and splenic margins not palpable. MUSCULOSKELETAL: No obvious deformities. No clubbing. No cyanosis. No edema. There is minimal tenderness around L1 and T1 without any deformity. She states when she lies flat she has severe pain in these areas, particularly the lumbar area. NEUROLOGICAL: Awake and alert. No obvious cranial nerve deficits. Motor grossly within normal limits. Normal speech. PSYCHIATRIC: The patient is extremely anxious; insight and judgment normal. Data Data Last Documented VS Vital Signs Date Time Temp Pulse Resp B/P (MAP) Pulse Ox O2 Delivery O2 Flow Rate FiO2 09/03/17 04:33 18 09/03/17 04:30 98.4 90 180/92 (121) 97 Orders Orders Promethazine Inj (Phenergan Inj) (09/03/17 04:45) Hydromorphone Pf Inj (Dilaudid Pf Inj) (09/03/17 04:45) Orphenadrine Inj (Norflex Inj) (09/03/17 05:45) Mri T Spine W/O Contrast (09/03/17 06:14) Mri L Spine W/O Contrast (09/03/17 06:14) MDM Medical Decision Making Medical Screen Exam Complete: Yes Emergency Medical Condition: Yes Medical Record Reviewed: Yes Differential Diagnosis Anxiety, muscle spasm, compression fracture, herniated nucleus pulposus Narrative Course It is now 0700 and the patient is transferred to Dr. Huston. Bg Mendez MD Sep 03, 2017 04:40
[2017-09-03] MEDS ORDERED: PROMETHAZINE INJ 25 MG/ML VIAL IM ONE (04:45)
[2017-09-03] MEDS ORDERED: HYDROmorphone HCL PF 2 MG/ML VIAL IM ONE (04:45)
[2017-09-03] MEDS ORDERED: ORPHENADRINE INJ 60 MG/2 ML AMP IM ONE (05:45)
[2017-09-03 06:48] VITALS: BP 163/93; PULSE 87; RESP 18; O2SAT 97
[2017-09-03 07:05] VITALS: BP 163/83; PULSE 86; RESP 14; O2SAT 98
[2017-09-03] MEDS ORDERED: IBUPROFEN 800 MG TAB PO ONE (07:30)
--- NOTE | 2017-09-03 09:16 | RADRPT ---
EXAM DATE/TIME: 09/03/2017 07:57 [facility] COMPARISON: MRI THORACIC SPINE W/O CONTRAST, June 12, 2009, 18:34. INDICATIONS : Fracture. MEDICAL HISTORY : Hypertension. Diabetes mellitus type 2. SURGICAL HISTORY : Kyphoplasty. Appendectomy. ENCOUNTER: Initial ACUITY: 2 day PAIN SCORE: 6/10 LOCATION: back TECHNIQUE: Multiplanar multisequence MRI of the thoracic spine was performed. FINDINGS: Sagittal T1, T2 and inversion recovery images show acute or subacute fractures at T6 and T10 with dim inished T1 and increased T2 signal intensity. Loss of height is approximately 50% of T6 and may be 30 % at T10, predominantly in the central portion of the superior and inferior endplates. Old fracture deformities of T9, T11 and T12, all of which have undergone previous kyphoplasty. There is a 7 mm retropulsed fragment off the superior endplate of T12 which encroaches on the anterior epid ural space but does not result in spinal stenosis. Slight exaggerated kyphotic curvature centered at the area of multiple fracture deformities. Spinal canal is adequate throughout. Cord signal is normal . The 6 mm probable cortical cyst posteriorly at the junction of the upper and midpole of the left ki dney. T1-T2: Normal. T2-T3: The thecal sac has a normal diameter. No evidence of disc bulge or protrusion. T3-T4: The thecal sac has a normal diameter. No evidence of disc bulge or protrusion. T4-T5: The thecal sac has a normal diameter. No evidence of disc bulge or protrusion. T5-T6: The thecal sac has a normal diameter. No evidence of disc bulge or protrusion. T6-T7: The thecal sac has a normal diameter. No evidence of disc bulge or protrusion. T7-T8: The thecal sac has a normal diameter. No evidence of disc bulge or protrusion. T8-T9: The thecal sac has a normal diameter. No evidence of disc bulge or protrusion. T9-T10: The thecal sac has a normal diameter. No evidence of disc bulge or protrusion. T10-T11: The thecal sac has a normal diameter. No evidence of disc bulge or protrusion. T11-T12: Retropulsed fragment of the superior plate of T12 encroaches on the intervertebral space but there is no spinal stenosis. T12-L1: The thecal sac has a normal diameter. No evidence of disc bulge or protrusion. CONCLUSION: 1. Acute or subacute compression fractures at T6 and T10 as detailed above. 2. Old compression fractures at T9, T11 and T12 which appear to have undergone prior kyphoplasty. 7 m m retropulsed fragment off the superior endplate of T12 encroaches on the anterior epidural space but does not result in spinal stenosis. 3. Despite the multiple compression fractures and a slight exaggerated kyphotic curvature of the dors al spine, the spinal canal appears to be adequate throughout with no cord compromise Juan Sullivan MD on September 03, 2017 at 9:04 Board Certified Radiologist. This report was verified electronically.
--- NOTE | 2017-09-03 09:22 | RADRPT ---
EXAM DATE/TIME: 09/03/2017 07:57 [facility] COMPARISON: No previous studies available for comparison. INDICATIONS : Fracture. MEDICAL HISTORY : Diabetes mellitus type 2. Hypertension. SURGICAL HISTORY : Appendectomy. Kyphoplasty. ENCOUNTER: Initial ACUITY: 2 day PAIN SCORE: 6/10 LOCATION: back TECHNIQUE: Multiplanar multisequence MRI of the lumbar spine was performed without contrast. FINDINGS: The most caudal appearing lumbar vertebra is numbered as L5. . sagittal T1, T2 and inversion recovery images show old kyphoplasty at T11 and T12. There is bony ed kathy at T10 with some loss of height center portions of the superior and inferior endplate characteris tic of acute or subacute fracture injury. Chronic compression fracture is also seen in the central leon perior endplate of L3. Remaining vertebral body heights are maintained. Mild multilevel degenerative disc disease with some diffuse disc bulge is normally directed anteriorly in the lower lumbar levels. Spinal canal is widely patent throughout without central nerve root compromise. T12-L1: The thecal sac has a normal diameter. No evidence of disc bulge or protrusion. The neural foramina are patent bilaterally. L1-L2: The thecal sac has a normal diameter. No evidence of disc bulge or protrusion. The neural foramina are patent bilaterally. L2-L3: The thecal sac has a normal diameter. No evidence of disc bulge or protrusion. The neural foramina are patent bilaterally. L3-L4: Bilateral facet hypertrophy. Spinal canal and neural foramina are patent. L4-L5: Bilateral facet hypertrophy. Spinal canal and neural foramina are patent L5-S1: The thecal sac has a normal diameter. No evidence of disc bulge or protrusion. The neural foramina are patent bilaterally. CONCLUSION: 1. Acute or subacute fracture through the central superior and inferior endplates of T10. 2. Chronic compression fractures at T11, T12 into the superior endplate of L3 centrally. Prior kyphop lasty at T11 and T12. 3. Mild degenerative disc disease with broad-based diffuse disc bulges predominantly directed anterio rly in the mid and lower lumbar levels. 4. Despite mild, multilevel degenerative disc disease and facet hypertrophy at L3-4 and L4-5, spinal canal and neural foramina appear to be adequate at all lumbar levels without nerve root compromise Juan Sullivan MD on September 03, 2017 at 9:14 Board Certified Radiologist. This report was verified electronically.
[2017-09-03 09:45] VITALS: BP 151/87; PULSE 79; RESP 14; O2SAT 97
--- NOTE | 2017-09-03 11:09 | PD ---
Physical Exam Narrative Patient was sent out to me for back pain. MRI shows a fractured on T6 and T10 that is acute or subacute. I spoke with [facility] who recommended for the patient to follow-up with Dr. Adam in 1 or 2 days. He states given the fact that patient is able to move all extremities with no pain and that she is comfortable moving and walking there is no need for brace. There is no motor or sensory loss and no spinal stenosis. I gave the office information to the patient as well as an MRI disc of the images. Patient also prefers to follow-up with her neurosurgeon which I am comfortable with this well. Data Data Last Documented VS Vital Signs Date Time Temp Pulse Resp B/P (MAP) Pulse Ox O2 Delivery O2 Flow Rate FiO2 09/03/17 09:45 79 14 151/87 (108) 97 Room Air 09/03/17 04:30 98.4 Orders Orders Promethazine Inj (Phenergan Inj) (09/03/17 04:45) Hydromorphone Pf Inj (Dilaudid Pf Inj) (09/03/17 04:45) Orphenadrine Inj (Norflex Inj) (09/03/17 05:45) Mri T Spine W/O Contrast (09/03/17 06:14) Mri L Spine W/O Contrast (09/03/17 06:14) Ibuprofen (Motrin) (09/03/17 07:30) Ed Discharge Order (09/03/17 11:06) MDM Supervised Visit with [facility]: Yes Diagnosis Primary Impression: Vertebral compression fracture Qualified Codes: M48.50XA - Collapsed vertebra, not elsewhere classified, site unspecified, initial encounter for fracture Referrals: Ashley Jeffery MD Disposition: 01 DISCHARGE HOME Condition: Stable Mahesh Huston MD Sep 03, 2017 11:09
== END 2017-09-03 11:20 | disposition home or self-care (01) ==
LOC: PHED 04:13
DX: M48.50XA Collapsed vertebra, not elsewhere classified, site unspecified, initial encounter for fracture (principal); E11.9 Type 2 diabetes mellitus without complications; E78.00 Pure hypercholesterolemia, unspecified; I10 Essential (primary) hypertension; I48.91 Unspecified atrial fibrillation; Z79.01 Long term (current) use of anticoagulants; Z79.84 Long term (current) use of oral hypoglycemic drugs; Z87.891 Personal history of nicotine dependence
CPT/HCPCS: 72146; 72148; 96372; 99283; J1170; J2360; J2550

== ENCOUNTER 2017-09-08 12:46 | Emergency (ER) | payer MEDICARE ==
[2017-09-08 12:54] VITALS: BP 176/86; PULSE 86; RESP 16; TEMP 98; O2SAT 95
[2017-09-08] MEDS ORDERED: CELE50CA PO (13:05)
[2017-09-08] MEDS ORDERED: ONDANSETRON HCL 4 MG/2 ML VIAL IM ONE (13:15)
[2017-09-08] MEDS ORDERED: MORPHINE SULFATE 4 MG/ML INJ IM ONE (13:15)
--- NOTE | 2017-09-08 13:18 | PD ---
HPI Chief Complaint: Pain: Acute or Chronic Time Seen by Provider: 12:59 Travel History International Travel<30 days: No Contact w/Intl Traveler<30days: No Traveled to known affect area: No History of Present Illness HPI This patient complains of back pain. She has long-standing history of chronic back pain for years. She was seen here a few days ago for increased back pain. She had an MRI of her thoracic and lumbar spine which revealed multiple old compression fractures as well as to subacute or acute compression fractures. There is no compromise of the spinal cord. She denies urinary incontinence or retention. She does not have any reported leg weakness. She does have pain when she stands. She reports that she does not have any pain medicine at home. She is trying to get in to see Dr. Lundberg. She is upset because they have not called her back with an appointment. She says she called her and advised them she had MRIs done and is awaiting an appointment. She called the ambulance today because her back was aggravating her. She wants to get pain prescription. He denies fever. No sensory loss. No exacerbating factors. No alleviating factors. PFSH Past Medical History Hx Anticoagulant Therapy: Yes Arthritis: Yes Asthma: Yes Atrial Fibrillation: Yes Blood Disorders: No Anxiety: Yes Depression: Yes Heart Rhythm Problems: Yes (A FIB) Cancer: Yes (SKIN CANCER FOREHEAD) Cardiovascular Problems: Yes (afib) High Cholesterol: Yes Chemotherapy: No Chest Pain: No Congestive Heart Failure: No COPD: Yes Cerebrovascular Accident: Yes (TIA ) Diabetes: Yes Patient Takes Glucophage: No Diminished Hearing: No Endocrine: Yes Gastrointestinal Disorders: Yes (GERD) GERD: Yes Glaucoma: No Genitourinary: No Hepatitis: No Hiatal Hernia: No Hypertension: Yes Immune Disorder: No Implanted Vascular Access Dvce: No Medical other: Yes (ANEMIA,REFLUX, GERD) Musculoskeletal: Yes (ARTHRITIS) Neurologic: No Psychiatric: No Reproductive: No Respiratory: Yes Immunizations Current: Yes Migraines: Yes Myocardial Infarction: No Sickle Cell Disease: No Sleep Apnea: Yes Thyroid Disease: Yes (HYPO) Tetanus Vaccination: > 5 Years Influenza Vaccination: Yes ?: Not Menopausal: Yes Past Surgical History Abdominal Surgery: Yes (APPENDECTOMY ) Appendectomy: Yes Body Medical Devices: CEMENT BACK (KYPHOPLASTY) Cardiac Surgery: No Ear Surgery: No Endocrine Surgery: No Eye Surgery: No Genitourinary Surgery: No Gynecologic Surgery: No Neurologic Surgery: No Oral Surgery: Yes (T & A) Pacemaker: No Thoracic Surgery: No Tonsillectomy: Yes Other Surgery: Yes (HERNIA REPAIR) Social History Alcohol Use: No Tobacco Use: No (QUIT LONG AGO) Substance Use: No Allergies-Medications (Allergen,Severity, Reaction): Coded Allergies: No Known Allergies (Verified Allergy, Unknown, 09/08/17) Reported Meds & Prescriptions Reported Meds & Active Scripts Active Flexeril (Cyclobenzaprine HCl) 10 Mg Tab 10 Mg PO TID Reported Celebrex (Celecoxib) 50 Mg Cap Unknown Dose PO BID Vitamin D-1000 (Cholecalciferol) 1,000 Unit Tab 1,000 Units PO DAILY Vitamin B-12 (Cyanocobalamin (Vitamin B-12)) 1,000 Mcg/Ml Drops 1 Ml SQ MONTHLY Symbicort Inh (Budesonide/Formoterol Fumarate) 80-4.5 Mcg/Act Aero 2 Puff INH Q12HR Ipratropium Nasal 0.06% [place] EACH NARE TID Warfarin 2 Mg Tab 2 Mg PO DAILY Atorvastatin (Atorvastatin Calcium) 40 Mg Tab 40 Mg PO DAILY Glipizide 5 Mg Tab 2.5 Mg PO BIDAC Take 30 minutes before a meal Lisinopril 10 Mg Tab 10 Mg PO DAILY Omeprazole 40 Mg Cap 40 Mg PO DAILY Atenolol 50 Mg Tab 50 Mg PO BID Fenofibrate 150 Mg Cap 150 Mg PO DAILY Review of Systems General / Constitutional: No: Fever Eyes: No: Visual changes HENT: No: Headaches Cardiovascular: No: Chest Pain or Discomfort Respiratory: No: Shortness of Breath Gastrointestinal: No: Abdominal Pain Genitourinary: No: Dysuria Musculoskeletal: Positive: Pain Skin: No Rash Neurologic: No: Weakness Psychiatric: No: Depression Endocrine: No: Polydipsia Hematologic/Lymphatic: No: Easy Bruising Physical Exam Narrative GENERAL: Well-nourished, well-developed patient in no apparent distress. SKIN: Focused skin assessment reveals no rash and nodules. Skin is Warm and dry. HEAD: Atraumatic. Normocephalic. EYES: Pupils equal and round. No scleral icterus. No injection or drainage. ENT: No nasal bleeding or discharge. Mucous membranes pink and moist. NECK: Trachea midline. No JVD. CARDIOVASCULAR: Regular rate and rhythm. No murmur appreciated. RESPIRATORY: No accessory muscle use. Clear to auscultation. Breath sounds equal bilaterally. GASTROINTESTINAL: Abdomen soft, non-tender, nondistended. Hepatic and splenic margins not palpable. MUSCULOSKELETAL: No obvious deformities. No clubbing. No cyanosis. No edema. I examined her back. There is some vague midline tenderness around the junction of thoracic and lumbar spine. No erythema or warmth or bruising NEUROLOGICAL: Awake and alert. No obvious cranial nerve deficits. Motor grossly within normal limits. Normal speech. Sensation subjectively intact PSYCHIATRIC: No delusional thought processes. No hallucinations. Data Data Last Documented VS Vital Signs Date Time Temp Pulse Resp B/P (MAP) Pulse Ox O2 Delivery O2 Flow Rate FiO2 09/08/17 12:54 98.0 86 16 176/86 (116) 95 Orders Orders Ondansetron Inj (Zofran Inj) (09/08/17 13:15) Morphine Inj (Morphine Inj) (09/08/17 13:15) MDM Medical Decision Making Medical Screen Exam Complete: Yes Emergency Medical Condition: Yes Medical Record Reviewed: Yes Differential Diagnosis Compression fracture, spinal stenosis, chronic back pain Narrative Course I have reviewed the patient's electronic medical record. Reviewed her visit as well as her MRI results from a few days ago I do not see any indication to repeat imaging given the recent MRIs. No change in neurologic status She urinated an hour prior to arrival, not having retention or incontinence I gave her injection morphine and Zofran for symptom relief I am going to have the correctional case records supervisor call the neurosurgeon office to see if she can get a follow-up appointment I will prescribe her some pain medicine I do not see indication for acute hospitalization given this ongoing chronic problem. road manager is obtain an appointment for her in 12 days with the neurosurgeon. She feels better on recheck She says she has a walker at home I wrote her 30 Percocet use if needed Warned her about sedation and constipation Diagnosis Primary Impression: Acute exacerbation of chronic low back pain Additional Impression: Compression fracture of body of thoracic vertebra Additional Instructions: The patient was advised to follow up with neurosurgeon on September 20 and follow- up with family physician as well The patient was warned about potential sedation for the medications they will receive on prescription. Med/Other Pt SpecificInfo: Prescription(s) given Scripts Oxycodone-Acetaminophen (Percocet) 5-325 mg Tab 1 TAB PO Q6H Y for PAIN, #30 TAB 0 Refills Prov: Bird Mata MD 09/08/17 Disposition: 01 DISCHARGE HOME Condition: Stable Bird Mata MD Sep 08, 2017 13:18
[2017-09-08] MEDS ORDERED: PERC5TAB12 PO (14:05)
[2017-09-08 14:11] VITALS: BP 136/90; PULSE 77; RESP 16; O2SAT 95
== END 2017-09-08 14:22 | disposition home or self-care (01) ==
LOC: PHED 12:46
DX: M54.5 Low back pain (principal); G89.29 Other chronic pain; M48.54XA Collapsed vertebra, not elsewhere classified, thoracic region, initial encounter for fracture; E78.00 Pure hypercholesterolemia, unspecified; I10 Essential (primary) hypertension; K21.9 Gastro-esophageal reflux disease without esophagitis; Z87.891 Personal history of nicotine dependence
CPT/HCPCS: 96372; 99283; J2270; J2405

== ENCOUNTER 2017-09-15 08:42 | Emergency (ER) | payer MEDICARE ==
[~2017-09-15] VITALS: Ht 167.6 cm; Wt 70.0 kg
[~2017-09-15 08:42] MED LIST changes: +CELE50CA PO; +PERC5TAB12 PO
[2017-09-15 08:45] VITALS: BP 198/102; PULSE 92; RESP 16; TEMP 97.4; O2SAT 99
[2017-09-15] MEDS ORDERED: oxyCODONE/ACETAMINOPHEN 5 MG/325 MG TAB PO ONE (12:00)
[2017-09-15] MEDS ORDERED: CELE50CA PO (12:15)
[2017-09-15] MEDS ORDERED: PERC5TAB12 PO (12:15)
--- NOTE | 2017-09-15 12:16 | PD ---
HPI Chief Complaint: Back/ Neck Pain or Injury Time Seen by Provider: 11:39 Travel History International Travel<30 days: No Contact w/Intl Traveler<30days: No Traveled to known affect area: No History of Present Illness HPI 81yo F with PMH of afib on coumadin, chronic back pain here requesting pain medication. Pt said she had MRI thoracic and lumbar spine recently and has an appointment with Dr. Lundberg on 09/20/17. Pt was prescribed celebrex and percocet by her primary care physician Dr. Rios. She said she took celebrex today but not her percocet. She only has 5 pills and wants prescription for more to get her through to 09/20/17. Pt denies any fever, chest pain, sob, n/v, abdominal pain, urinary or fecal incontinence, focal weakness or numbness. Pt denies any fall but 2 days ago, reached down to hand picker something and thinks she exacerbated her back and has pain in left lower back now. Denies any pain when she does not move, worst with movement. PFSH Past Medical History Hx Anticoagulant Therapy: Yes Arthritis: Yes Asthma: Yes Atrial Fibrillation: Yes Blood Disorders: No Anxiety: Yes Depression: Yes Heart Rhythm Problems: Yes (A FIB) Cancer: Yes (SKIN CANCER FOREHEAD) Cardiovascular Problems: Yes High Cholesterol: Yes Chemotherapy: No Chest Pain: No Congestive Heart Failure: No COPD: Yes Cerebrovascular Accident: Yes Diabetes: Yes Diminished Hearing: No Endocrine: Yes Gastrointestinal Disorders: Yes (GERD) GERD: Yes Glaucoma: No Genitourinary: No Hepatitis: No Hiatal Hernia: No Hypertension: Yes Immune Disorder: No Implanted Vascular Access Dvce: No Musculoskeletal: Yes (ARTHRITIS) Neurologic: No Psychiatric: No Reproductive: No Respiratory: Yes Immunizations Current: Yes Migraines: Yes Myocardial Infarction: No Sickle Cell Disease: No Sleep Apnea: Yes Thyroid Disease: Yes (HYPO) ?: Not Menopausal: Yes Past Surgical History Abdominal Surgery: Yes (APPENDECTOMY ) Appendectomy: Yes Body Medical Devices: CEMENT BACK (KYPHOPLASTY) Cardiac Surgery: No Ear Surgery: No Endocrine Surgery: No Eye Surgery: No Genitourinary Surgery: No Gynecologic Surgery: No Neurologic Surgery: No Oral Surgery: Yes (T & A) Pacemaker: No Thoracic Surgery: No Tonsillectomy: Yes Other Surgery: Yes (HERNIA REPAIR) Social History Alcohol Use: No Tobacco Use: No (QUIT LONG AGO) Substance Use: No Allergies-Medications (Allergen,Severity, Reaction): Coded Allergies: No Known Allergies (Verified Allergy, Unknown, 09/08/17) Reported Meds & Prescriptions Reported Meds & Active Scripts Active Percocet (Oxycodone-Acetaminophen) 5-325 mg Tab 1 Tab PO Q6H PRN Flexeril (Cyclobenzaprine HCl) 10 Mg Tab 10 Mg PO TID Reported Celebrex (Celecoxib) 50 Mg Cap Unknown Dose PO BID Vitamin D-1000 (Cholecalciferol) 1,000 Unit Tab 1,000 Units PO DAILY Vitamin B-12 (Cyanocobalamin (Vitamin B-12)) 1,000 Mcg/Ml Drops 1 Ml SQ MONTHLY Symbicort Inh (Budesonide/Formoterol Fumarate) 80-4.5 Mcg/Act Aero 2 Puff INH Q12HR Ipratropium Nasal 0.06% [place] 1 [place] EACH NARE TID Warfarin 2 Mg Tab 2 Mg PO DAILY Atorvastatin (Atorvastatin Calcium) 40 Mg Tab 40 Mg PO DAILY Glipizide 5 Mg Tab 2.5 Mg PO BIDAC Take 30 minutes before a meal Lisinopril 10 Mg Tab 10 Mg PO DAILY Omeprazole 40 Mg Cap 40 Mg PO DAILY Atenolol 50 Mg Tab 50 Mg PO BID Fenofibrate 150 Mg Cap 150 Mg PO DAILY Review of Systems Except as stated in HPI: all other systems reviewed are Neg Physical Exam Narrative GENERAL: 81yo F in mild distress. SKIN: Focused skin assessment warm/dry. HEAD: Atraumatic. Normocephalic. CARDIOVASCULAR: Regular rate and rhythm. No murmur appreciated. RESPIRATORY: No accessory muscle use. Clear to auscultation. Breath sounds equal bilaterally. GASTROINTESTINAL: Abdomen soft, non-tender, nondistended. BACK: No midline ttp thoracic or lumbar spine. +TTP left paraspinal L4-5. MUSCULOSKELETAL: No obvious deformities. No clubbing. No cyanosis. No edema. NEUROLOGICAL: Awake and alert. No obvious cranial nerve deficits. Motor grossly within normal limits in all extremities. Sensation equal in all extremities. Normal speech. PSYCHIATRIC: Appropriate mood and affect; insight and judgment normal. Data Data Last Documented VS Vital Signs Date Time Temp Pulse Resp B/P (MAP) Pulse Ox O2 Delivery O2 Flow Rate FiO2 09/15/17 08:45 97.4 92 16 198/102 (134) 99 Orders Orders Oxycodone-Acetamin 5-325 Mg (Percocet (09/15/17 12:00) MDM Medical Decision Making Medical Screen Exam Complete: Yes Emergency Medical Condition: Yes Differential Diagnosis Musculoskeletal pain vs. chronic back pain Narrative Course 81yo well appearing female here requesting pain medication for her chronic back pain. Pt said she had a recent work up with aerobics teacher and panel installer and everything is good and have 6 month follow ups for both. No red flags. Pt said she is going to her PMD for routine INR check today and denies any bleeding. I did offer to check for her but she prefers to go her PMD. Pt only has 5 pills of percocet and celebrex left. Return precautions given. Diagnosis Primary Impression: Back pain Qualified Codes: M54.5 - Low back pain Patient Instructions: General Instructions Departure Forms: Tests/Procedures Additional Instructions: Please follow up with Dr. Lundberg on your appointment date on 09/20/17. Please return to the ED if symptoms worsen. Med/Other Pt SpecificInfo: Prescription(s) given Scripts Oxycodone-Acetaminophen (Percocet) 5-325 mg Tab 1 TAB PO Q6H Y for PAIN for 3 Days, #12 TAB 0 Refills Prov: Cha Sarabia DO 09/15/17 Celecoxib (Celebrex) 50 Mg Cap 50 MG PO BID for Pain Management for 5 Days, #10 CAP 0 Refills Prov: Cha Sarabia DO 09/15/17 Disposition: 01 DISCHARGE HOME Condition: Stable Cha Sarabia DO Sep 15, 2017 12:15
== END 2017-09-15 12:37 | disposition home or self-care (01) ==
LOC: NEPD 08:42
DX: M54.5 Low back pain (principal); G89.29 Other chronic pain; M19.90 Unspecified osteoarthritis, unspecified site; I48.91 Unspecified atrial fibrillation; E78.00 Pure hypercholesterolemia, unspecified; E11.9 Type 2 diabetes mellitus without complications; I10 Essential (primary) hypertension; E03.9 Hypothyroidism, unspecified; Z87.891 Personal history of nicotine dependence
CPT/HCPCS: 99283

== ENCOUNTER → 2017-09-30 | Outpatient (CLI) | payer MEDICARE ==
[~2017-09-30] MED LIST changes: +CELE1CAP8 PO
[2017-09-30 13:12] LABS: AUTOMATED NEUTROPHIL # 5.7 TH/MM3 (1.8-7.7); BASOPHIL # 0.1 TH/MM3 (0-0.2); BASOPHIL % 0.8 % (0.0-2.0); EOSINOPHIL # 0.1 TH/MM3 (0-0.4); EOSINOPHIL % 1.4 % (0.0-4.0); HEMATOCRIT 40.3 % (35.0-46.0); HEMOGLOBIN 13.6 GM/DL (11.6-15.3); LYMPH % 19.4 % (9.0-44.0); LYMPHOCYTE # 1.6 TH/MM3 (1.0-4.8); MEAN CELL VOLUME 95.1 FL (80.0-100.0); MEAN CORPUSCULAR HEMOGLOBIN 32.2 PG (27.0-34.0); MEAN CORPUSCULAR HGB CONC 33.8 % (32.0-36.0); MEAN PLATELET VOLUME 9.5 FL (7.0-11.0); MONO % 10.4 % (0.0-8.0); MONOCYTE # 0.9 TH/MM3 (0-0.9); PLATELET COUNT 229 TH/MM3 (150-450); RED BLOOD COUNT 4.24 MIL/MM3 (4.00-5.30); RED CELL DISTRIBUTION WIDTH 15.3 % (11.6-17.2); WHITE BLOOD COUNT 8.3 TH/MM3 (4.0-11.0)
[2017-09-30 13:19] LABS: INTERNATIONAL NORMALIZED RATIO 2.6 RATIO; PROTHROMBIN TIME - PATIENT 26.7 SEC (9.8-11.6)
[2017-09-30 13:23] LABS: BACTERIA, URINE RARE /hpf; BILIRUBIN, URINE NEG (NEG); BLOOD, URINE NEG (NEG); CALCIUM OXALATE CRYSTALS,URINE MOD /hpf; GLUCOSE,URINE NEG (NEG); KETONE, URINE NEG (NEG); MUCUS URINE FEW /lpf (OCC); NITRITE,URINE NEG (NEG); SQUAMOUS EPITHELIAL CELL URINE 1 /hpf (0-5); URINE COLOR YELLOW (YELLW/STRAW); URINE LEUKOCYTE ESTERASE NEG (NEG)
[2017-09-30 13:32] LABS: ALBUMIN 3.6 GM/DL (3.4-5.0); ALT (GPT) 34 U/L (10-53); AST (GOT) 34 U/L (15-37); BICARBONATE 31.5 MEQ/L (21.0-32.0); BLOOD UREA NITROGEN 17 MG/DL (7-18); CALCIUM 9.6 MG/DL (8.5-10.1); CHLORIDE 105 MEQ/L (98-107); CREATININE 0.64 MG/DL (0.50-1.00); GLOMERULAR FILTRATION RATE 89 ML/MIN (>89); GLUCOSE,FASTING 115 MG/DL (74-99); SODIUM (NA) 142 MEQ/L (136-145)
[2017-09-30 13:34] LABS: ALKALINE PHOSPHATASE 98 U/L (45-117); TOTAL BILIRUBIN ADULT 0.8 MG/DL (0.2-1.0); TOTAL PROTEIN 7.1 GM/DL (6.4-8.2)
== END ==
LOC: CPRE 11:50
PROVIDERS: ATTEND Neurological Surgery
DX: Z01.812 Encounter for preprocedural laboratory examination (principal); Z01.810 Encounter for preprocedural cardiovascular examination; M48.54XA Collapsed vertebra, not elsewhere classified, thoracic region, initial encounter for fracture; M48.56XA Collapsed vertebra, not elsewhere classified, lumbar region, initial encounter for fracture; Z79.01 Long term (current) use of anticoagulants
CPT/HCPCS: 36415; 80053; 81001; 85025; 85610; 85730; 87640; 87641

== ENCOUNTER → 2017-10-04 | Day surgery (SDC) | payer MEDICARE ==
[~2017-10-04] VITALS: Ht 167.6 cm; Wt 64.2 kg
[~2017-10-04] MED LIST changes: +*RESP: ALBUTEROL 2.5 MG/3 ML NEB (PRN) PERIprocedural Use ONLY NEB ONE; +*morphine SULFATE 4 MG/ML PERIprocedure ONLY ONE; +BUPIVACAINE/EPINEPHRINE 0.5% 50 ML VIAL ONE; -CELE50CA PO; +CHLORHEXIDINE GLUCONATE 2 % 1 PACK (2 CLOTHS) TOPICAL PRN; -CYCL10TA PO; +DO NOT ADM ANY ANTICOAGULANT DRUGS PRN; +GLYCOPYRROLATE 1 MG/5 ML SYRINGE IV PUSH ONE; +LACTATED RINGER'S 1000 ML INJ 1,000 ML IV SCH; +LACTATED RINGER'S 1000 ML IV PRN; +LIDOCAINE HCL 1% PF 5 ML SYRINGE OTHER ONE; +METOPROLOL TARTRATE 25 MG TAB PO PRN; +NEOSTIGMINE 5 MG/5 ML SYRINGE IV PUSH ONE; +ONDANSETRON HCL 4 MG/2 ML VIAL IV ONE; +PHENYLEPH/NS 1000 MCG/10 ML SYR IV ONE; +POVIDONE IODINE 5% (ANTISEPSIS KIT) 4 APPLICATIONS EACH NARE PRN; +PROPOFOL 200 MG/20 ML AMP IV ONE; +ROCURONIUM INJ 50 MG/5 ML SYRINGE IV PUSH ONE; +SODIUM CHLOR 0.9% 1000 ML INJ 1,000 ML IV SCH; +SODIUM CHLORID 0.9% 500 ML IV PRN; +VANCOMYCIN 1 GM/200 ML PREMIX ON-CALL IV SCH; +VANCOMYCIN 1000 MG/NS 250 ML ON-CALL IV SCH; +ePHEDrine/NS 25 MG/5 ML SYRINGE IV ONE; +oxyCODONE/ACETAMINOPHEN 10 MG/325 MG TAB ONE; +oxyCODONE/ACETAMINOPHEN 10 MG/325 MG TAB PO ONE
[2017-10-04 07:07] LABS: INTERNATIONAL NORMALIZED RATIO 1.3 RATIO; PROTHROMBIN TIME - PATIENT 12.7 SEC (9.8-11.6)
--- NOTE | 2017-10-04 10:34 | PD.OP ---
cc: Ramses Rios MD Operative Report Date of Surgery: Oct 04, 2017 Preoperative Diagnosis: Intractable thoracic and lumbar back pain; thoracic T6, T10 and lumbar L3 vertebral body compression fractures Postoperative Diagnosis: Same Procedure: T6, T10 and L3 kyphoplasty Anesthesia: Gen. endotracheal by Jazmyne tello Surgeon: Dimas Lundberg M.D. Fulfillment Mail Clerk(s): None Operation and Findings: Following administration of a general endotracheal anesthesia patient was placed in the prone position on chest rolls and Juan table and all pressure points adequate padded. IV antibiotics were administered intravenously and the thoracolumbar area posteriorly prepped with a Betadine solution and painted and draped in the usual sterile fashion. Using AP and lateral arthroscopy guidance the stab incision sites were made overlying the right T6, left T10 and the left L3 level pedicles after infiltrating the skin was 0.5% Marc[place]. The Jamshidi needles were then passed into the vertebral body through the pedicles at all 3 levels sequentially and with the hand-held drill trajectories created. The drills were then removed and then the balloons were passed into the vertebral bodies and dilated to create a cavity and restore vertebral body height. Subsequently the balloons were removed and the cavity packed with the bone cement 6 cc total at the L3 level, 4 cc at the T10 level and 3 cc at the T6 level. The guides were then removed and Steri-Strips applied at the puncture wounds along with a sterile dressing. She was then turned in spine position, extubated and taken to the recovery room. There were no intraoperative medications and all sponge and needle count was correct at the end the procedure. Estimated blood loss less than 5 cc. Dimas Lundberg MD Oct 04, 2017 10:34
[2017-10-04 13:02] VITALS: BP 133/68; PULSE 93; RESP 18; O2SAT 93
--- NOTE | 2017-10-04 13:30 | RADRPT ---
EXAM DATE/TIME: 10/04/2017 09:09 [facility] COMPARISON: MRI THORACIC SPINE W/O CONTRAST, September 03, 2017, 7:57. FLUOROSCOPY PORTABLE UP TO 1HR, October 04 8, 0:00. FLUOROSCOPY PORTABLE UP TO 1HR, October 04, 2017, 0:00. MRI LUMBAR SPINE W/O CONTRAST, September 03, 2017, 7:57. INDICATIONS : Compression fractures T6, T10,L3, kyphoplasty. MEDICAL HISTORY : Osteoarthritis. Fractures Tspine. SURGICAL HISTORY : Prior Kyphoplastys. ENCOUNTER: Initial ACUITY: 1 day PAIN SCORE: Non-responsive. LOCATION: Thoracolumbar spine. FINDINGS: New cement augmentations performed at multiple levels including L3, T10, and T6. Old cement augmentat ions at T9, T11 and T12. CONCLUSION: New cement augmentations at multiple levels as described above. Chava Gallagher MD on October 04, 2017 at 13:20 Board Certified Radiologist. This report was verified electronically.
== END | disposition home or self-care (01) ==
LOC: HSDC 05:46
PROVIDERS: ATTEND Neurological Surgery
DX: M48.54XA Collapsed vertebra, not elsewhere classified, thoracic region, initial encounter for fracture (principal); M48.56XA Collapsed vertebra, not elsewhere classified, lumbar region, initial encounter for fracture; M51.34 Other intervertebral disc degeneration, thoracic region; I10 Essential (primary) hypertension; E78.5 Hyperlipidemia, unspecified; J44.9 Chronic obstructive pulmonary disease, unspecified; M19.90 Unspecified osteoarthritis, unspecified site; Z79.01 Long term (current) use of anticoagulants
CPT/HCPCS: 01936; 22513; 22515; 72070; 76000; 82948; 85610; 85730; J2270; J2370; J2405; J2710; J3010; J3370; J7050; J7120; J7613

== ENCOUNTER 2017-11-07 11:07 | Emergency (ER) | payer MEDICARE ==
[~2017-11-07] VITALS: Ht 167.6 cm; Wt 62.5 kg
[~2017-11-07 11:07] MED LIST changes: -*RESP: ALBUTEROL 2.5 MG/3 ML NEB (PRN) PERIprocedural Use ONLY NEB ONE; -*morphine SULFATE 4 MG/ML PERIprocedure ONLY ONE; -BUPIVACAINE/EPINEPHRINE 0.5% 50 ML VIAL ONE; -CHLORHEXIDINE GLUCONATE 2 % 1 PACK (2 CLOTHS) TOPICAL PRN; -DO NOT ADM ANY ANTICOAGULANT DRUGS PRN; -GLYCOPYRROLATE 1 MG/5 ML SYRINGE IV PUSH ONE; -LACTATED RINGER'S 1000 ML INJ 1,000 ML IV SCH; -LACTATED RINGER'S 1000 ML IV PRN; -LIDOCAINE HCL 1% PF 5 ML SYRINGE OTHER ONE; -METOPROLOL TARTRATE 25 MG TAB PO PRN; -NEOSTIGMINE 5 MG/5 ML SYRINGE IV PUSH ONE; -ONDANSETRON HCL 4 MG/2 ML VIAL IV ONE; -PHENYLEPH/NS 1000 MCG/10 ML SYR IV ONE; -POVIDONE IODINE 5% (ANTISEPSIS KIT) 4 APPLICATIONS EACH NARE PRN; -PROPOFOL 200 MG/20 ML AMP IV ONE; -ROCURONIUM INJ 50 MG/5 ML SYRINGE IV PUSH ONE; -SODIUM CHLOR 0.9% 1000 ML INJ 1,000 ML IV SCH; -SODIUM CHLORID 0.9% 500 ML IV PRN; -VANCOMYCIN 1 GM/200 ML PREMIX ON-CALL IV SCH; -VANCOMYCIN 1000 MG/NS 250 ML ON-CALL IV SCH; -ePHEDrine/NS 25 MG/5 ML SYRINGE IV ONE; -oxyCODONE/ACETAMINOPHEN 10 MG/325 MG TAB ONE; -oxyCODONE/ACETAMINOPHEN 10 MG/325 MG TAB PO ONE
[2017-11-07 11:17] VITALS: BP 146/93; PULSE 80; RESP 18; TEMP 98.3; O2SAT 100
[2017-11-07] MEDS ORDERED: SODIUM CHLOR 0.9% 1000 ML INJ 1,000 ML IV SCH (11:23)
--- NOTE | 2017-11-07 11:27 | PD ---
HPI Chief Complaint: GI Complaint Time Seen by Provider: 11:18 Travel History International Travel<30 days: No Contact w/Intl Traveler<30days: No Traveled to known affect area: No History of Present Illness HPI 82-year-old female with history of A. fib on Coumadin, hypertension, diabetes, brought in by ambulance for evaluation of abdominal pain. Patient reports ongoing abdominal pain for the last 2 months. Pain is epigastric, described as pressure, worse after eating and with sitting forward, relieved after having a bowel movement, moderate to severe. History of appendectomy. No other abdominal surgeries. She states that she needs to take a laxative to have a bowel movement, and when she does so her pain is relieved. No vomiting. No fever. Reports history of chronic back pain and recent surgery about a month ago. She was on oxycodone, was weaned off this medication, and now is on tramadol. No chest pain or dyspnea. She had a small bowel movement this morning. PFSH Past Medical History Hx Anticoagulant Therapy: Yes (WARFARIN) Arthritis: Yes Asthma: Yes Atrial Fibrillation: Yes Blood Disorders: No Anxiety: Yes Depression: Yes Heart Rhythm Problems: Yes (A FIB) Cancer: Yes (SKIN CANCER FOREHEAD) Cardiovascular Problems: Yes (A. FIB, HTN, CHOL) High Cholesterol: Yes Chemotherapy: No Chest Pain: No Congestive Heart Failure: No COPD: Yes Cerebrovascular Accident: Yes Diabetes: Yes Patient Takes Glucophage: No Diminished Hearing: No Endocrine: Yes Gastrointestinal Disorders: Yes (GERD) GERD: Yes Glaucoma: No Genitourinary: No Hepatitis: No Hiatal Hernia: No Hypertension: Yes Immune Disorder: No Implanted Vascular Access Dvce: No Medical other: Yes (ANEMIA,REFLUX, GERD) Musculoskeletal: Yes (ARTHRITIS) Neurologic: No (TIA) Psychiatric: No Reproductive: No Respiratory: Yes (COPD) Immunizations Current: Yes Migraines: Yes Myocardial Infarction: No Sickle Cell Disease: No Sleep Apnea: Yes Thyroid Disease: Yes (HYPO) Tetanus Vaccination: Unknown ?: Not Menopausal: Yes Past Surgical History Abdominal Surgery: Yes (APPENDECTOMY ) AICD: No Appendectomy: Yes Body Medical Devices: CEMENT BACK (KYPHOPLASTY) Cardiac Surgery: No Ear Surgery: No Endocrine Surgery: No Eye Surgery: No Genitourinary Surgery: No Gynecologic Surgery: No Joint Replacement: Yes (RIGHT KNEE) Neurologic Surgery: No Oral Surgery: Yes (T & A) Pacemaker: No Thoracic Surgery: No Tonsillectomy: Yes Social History Alcohol Use: No Tobacco Use: No (QUIT LONG AGO) Substance Use: No Allergies-Medications (Allergen,Severity, Reaction): Coded Allergies: No Known Allergies (Verified Allergy, Unknown, 11/07/17) Reported Meds & Prescriptions Reported Meds & Active Scripts Active Reported Warfarin 4 Mg Tab 4 Mg PO MOFR Warfarin 2 Mg Tab 2 Mg PO WETHSASU Lisinopril-Hctz 10-12.5 Mg Tab 1 Tab PO DAILY Vitamin D-1000 (Cholecalciferol) 1,000 Unit Tab 1,000 Units PO DAILY Vitamin B-12 (Cyanocobalamin (Vitamin B-12)) 1,000 Mcg/Ml Drops 1 Ml SQ MONTHLY Symbicort Inh (Budesonide/Formoterol Fumarate) 80-4.5 Mcg/Act Aero 2 Puff INH Q12HR Ipratropium Nasal 0.06% [place] 2 [place] EACH NARE DAILY Atorvastatin (Atorvastatin Calcium) 40 Mg Tab 40 Mg PO DAILY Glipizide 5 Mg Tab 2.5 Mg PO BIDAC Take 30 minutes before a meal Lisinopril 10 Mg Tab 10 Mg PO DAILY Omeprazole 40 Mg Cap 40 Mg PO DAILY Atenolol 50 Mg Tab 50 Mg PO BID Fenofibrate 150 Mg Cap 150 Mg PO DAILY Review of Systems Except as stated in HPI: all other systems reviewed are Neg Physical Exam Narrative GENERAL: Well-developed, well-nourished, comfortable, no apparent distress. SKIN: Focused skin assessment warm/dry. No rash. HEAD: Atraumatic. Normocephalic. EYES: Pupils equal and round. No scleral icterus. No injection or drainage. ENT: Mucous membranes pink and moist. NECK: Trachea midline. No JVD. CARDIOVASCULAR: Regular rate and rhythm. RESPIRATORY: No accessory muscle use. Clear to auscultation. Breath sounds equal bilaterally. GASTROINTESTINAL: Abdomen soft, nondistended. Mild epigastric and periumbilical tenderness without rebound or guarding. Normal bowel sounds. No hernias. MUSCULOSKELETAL: No obvious deformities. No clubbing. No cyanosis. No edema. NEUROLOGICAL: Awake and alert. No obvious cranial nerve deficits. Motor grossly within normal limits. Normal speech. PSYCHIATRIC: Appropriate mood and affect; insight and judgment normal. Data Data Last Documented VS Vital Signs Date Time Temp Pulse Resp B/P (MAP) Pulse Ox O2 Delivery O2 Flow Rate FiO2 11/07/17 11:33 18 97 Room Air 11/07/17 11:17 98.3 80 146/93 (110) Orders Orders Complete Blood Count With Diff (11/07/17 11:23) Comprehensive Metabolic Panel (11/07/17 11:23) Lipase (11/07/17 11:23) Prothrombin Time / Inr (Pt) (11/07/17 11:23) Act Partial Throm Time (Ptt) (11/07/17 11:23) Ct Abd/Pel W Iv Contrast(Rout) (11/07/17 11:23) Iv Access Insert/Monitor (11/07/17 11:23) Ecg Monitoring (11/07/17 11:23) Oximetry (11/07/17 11:23) Pantoprazole Inj (Protonix Inj) (11/07/17 11:30) Sodium Chlor 0.9% 1000 Ml Inj (Ns 1000 M (11/07/17 11:23) Sodium Chloride 0.9% Flush (Ns Flush) (11/07/17 11:30) Electrocardiogram (11/07/17 11:23) Al-Mag Hy-Si 40-40-4 Mg/Ml Liq (Mag-Al P (11/07/17 11:30) Lidocaine 2% Viscous (Xylocaine 2% Visco (11/07/17 11:30) Morphine Inj (Morphine Inj) (11/07/17 11:45) Iohexol 350 Inj (Omnipaque 350 Inj) (11/07/17 12:26) Labs Laboratory Tests Test 11/07/17 11:20 White Blood Count 7.5 TH/MM3 Red Blood Count 4.17 MIL/MM3 Hemoglobin 13.2 GM/DL Hematocrit 40.4 % Mean Corpuscular Volume 96.9 FL Mean Corpuscular Hemoglobin 31.7 PG Mean Corpuscular Hemoglobin Concent 32.7 % Red Cell Distribution Width 14.7 % Platelet Count 243 TH/MM3 Mean Platelet Volume 9.0 FL Neutrophils (%) (Auto) 70.6 % Lymphocytes (%) (Auto) 19.3 % Monocytes (%) (Auto) 7.8 % Eosinophils (%) (Auto) 1.4 % Basophils (%) (Auto) 0.9 % Neutrophils # (Auto) 5.3 TH/MM3 Lymphocytes # (Auto) 1.4 TH/MM3 Monocytes # (Auto) 0.6 TH/MM3 Eosinophils # (Auto) 0.1 TH/MM3 Basophils # (Auto) 0.1 TH/MM3 CBC Comment DIFF FINAL Differential Comment Prothrombin Time 68.4 SEC Prothromb Time International Ratio 6.8 RATIO Activated Partial Thromboplast Time 42.4 SEC Blood Urea Nitrogen 9 MG/DL Creatinine 0.55 MG/DL Random Glucose 118 MG/DL Total Protein 6.9 GM/DL Albumin 3.4 GM/DL Calcium Level 9.1 MG/DL Alkaline Phosphatase 80 U/L Aspartate Amino Transf (AST/SGOT) 25 U/L Alanine Aminotransferase (ALT/SGPT) 26 U/L Total Bilirubin 0.7 MG/DL Sodium Level 141 MEQ/L Potassium Level 3.5 MEQ/L Chloride Level 105 MEQ/L Carbon Dioxide Level 27.5 MEQ/L Anion Gap 9 MEQ/L Estimat Glomerular Filtration Rate 106 ML/MIN Lipase 166 U/L MDM Medical Decision Making Medical Screen Exam Complete: Yes Emergency Medical Condition: Yes Medical Record Reviewed: Yes Interpretation(s) EKG: A. fib, rate 85, normal axis, normal intervals, Q waves in V1 and V2, no acute ischemic abnormality's. Differential Diagnosis Gastritis, peptic ulcer disease, pancreatitis, hepatobiliary disease, gastroparesis, bowel obstruction, enteritis, mesenteric ischemia Narrative Course Vital signs show heart rate 80, blood pressure 146/93, pulse ox 100% on room air , oral temperature 98.3F. CBC is unremarkable. CMP is unremarkable. Lipase is 166. INR is 6.8. CT abdomen pelvis: CONCLUSION: Decompressed stomach with thickened bowel wall, nonspecific There are no gallstones There no inflammatory changes evident. The patient was made aware of all findings, and on reassessment she states she feels improved after receiving morphine, GI cocktail, and Protonix. She is resting comfortably with a hard candy in her mouth. Her INR is elevated at 6.8. There is no evidence for bleeding. Recommendation is for her to hold her Coumadin for the next 3 days and have a repeat INR by her primary care physician Dr. Rios in 3 days. She tells me that she has a scheduled MRI for Wednesday of her spine, and is requesting that I order it here. I explained to her that she does not have any symptoms to warrant an emergent MRI at this time. She tells me that she last had a colonoscopy about 5 years ago. I told her that she would likely need to follow-up with a GI doctor for upper endoscopy to evaluate for possible gastritis or peptic ulcer disease. At this point she is stable for discharge home with outpatient follow-up with her primary care physician in the next 2-3 days. She tells me that she has plenty of oxycodone at home if she needs for pain. She was advised on when to return to the emergency department. She verbalizes understanding and agreement with plan. Diagnosis Primary Impression: Abdominal pain Qualified Codes: R10.13 - Epigastric pain Additional Impression: Elevated INR Referrals: Primary Care Physician 3 days Additional Instructions: Follow-up with your primary care physician in the next 2-3 days for repeat INR. Hold Coumadin for the next 3 days. Return to the emergency department for worsening symptoms or any other concerns. Disposition: 01 DISCHARGE HOME Condition: Stable Francis Madrid MD November 07, 2017 11:27
[2017-11-07] MEDS ORDERED: MORPHINE SULFATE 2 MG/ML SYRINGE IV PUSH ONE (11:30)
[2017-11-07] MEDS ORDERED: WARF-20 PO (11:30)
[2017-11-07] MEDS ORDERED: ALUMINUM/MAGNESIUM/SIMETH 30 ML CUP PO ONE (11:30)
[2017-11-07] MEDS ORDERED: LISI10TA PO (11:30)
[2017-11-07] MEDS ORDERED: WARF4TAB51 PO (11:30)
[2017-11-07] MEDS ORDERED: LIDOCAINE VISCOUS 2% SOLN 15 ML UDC PO ONE (11:30)
[2017-11-07] MEDS ORDERED: SODIUM CHLORIDE 0.9% FLUSH 10 ML FLUSH IV FLUSH PRN (11:30)
[2017-11-07] MEDS ORDERED: PANTOPRAZOLE SODIUM 40 MG VIAL IVP ONE (11:30)
[2017-11-07 11:33] VITALS: RESP 18; O2SAT 97
[2017-11-07] MEDS ORDERED: MORPHINE SULFATE 4 MG/ML INJ IV PUSH ONE (11:45)
[2017-11-07 11:46] LABS: AUTOMATED NEUTROPHIL # 5.3 TH/MM3 (1.8-7.7); BASOPHIL # 0.1 TH/MM3 (0-0.2); BASOPHIL % 0.9 % (0.0-2.0); EOSINOPHIL # 0.1 TH/MM3 (0-0.4); EOSINOPHIL % 1.4 % (0.0-4.0); HEMATOCRIT 40.4 % (35.0-46.0); HEMOGLOBIN 13.2 GM/DL (11.6-15.3); LYMPH % 19.3 % (9.0-44.0); LYMPHOCYTE # 1.4 TH/MM3 (1.0-4.8); MEAN CELL VOLUME 96.9 FL (80.0-100.0); MEAN CORPUSCULAR HEMOGLOBIN 31.7 PG (27.0-34.0); MEAN CORPUSCULAR HGB CONC 32.7 % (32.0-36.0); MONO % 7.8 % (0.0-8.0); MONOCYTE # 0.6 TH/MM3 (0-0.9); NEUT % 70.6 % (16.0-70.0); PLATELET COUNT 243 TH/MM3 (150-450); RED BLOOD COUNT 4.17 MIL/MM3 (4.00-5.30); RED CELL DISTRIBUTION WIDTH 14.7 % (11.6-17.2); WHITE BLOOD COUNT 7.5 TH/MM3 (4.0-11.0)
[2017-11-07 12:02] LABS: CHLORIDE 105 MEQ/L (98-107); SODIUM (NA) 141 MEQ/L (136-145)
[2017-11-07 12:06] LABS: ALBUMIN 3.4 GM/DL (3.4-5.0); BICARBONATE 27.5 MEQ/L (21.0-32.0); BLOOD UREA NITROGEN 9 MG/DL (7-18); CALCIUM 9.1 MG/DL (8.5-10.1); GLUCOSE,RANDOM 118 MG/DL (74-106)
[2017-11-07 12:09] LABS: ALT (GPT) 26 U/L (10-53); AST (GOT) 25 U/L (15-37); CREATININE 0.55 MG/DL (0.50-1.00); GLOMERULAR FILTRATION RATE 106 ML/MIN (>89)
[2017-11-07 12:10] LABS: TOTAL BILIRUBIN ADULT 0.7 MG/DL (0.2-1.0); TOTAL PROTEIN 6.9 GM/DL (6.4-8.2)
[2017-11-07 12:11] LABS: PROTHROMBIN TIME - PATIENT 68.4 SEC (9.8-11.6)
[2017-11-07 12:12] LABS: ALKALINE PHOSPHATASE 80 U/L (45-117)
[2017-11-07 12:19] LABS: INTERNATIONAL NORMALIZED RATIO 6.8 RATIO
[2017-11-07] MEDS ORDERED: IOHEXOL 350 MG/ML 10 ML VIAL (for RAD DIAG) IVCONTRAST ONE (12:26)
--- NOTE | 2017-11-07 12:46 | RADRPT ---
EXAM DATE/TIME: 11/07/2017 12:19 [facility] COMPARISON: No previous studies available for comparison. INDICATIONS : Epigastric pain for two months. IV CONTRAST: 90 cc Omnipaque 350 (iohexol) IV ORAL CONTRAST: No oral contrast ingested. RADIATION DOSE: 15.07 CTDIvol (mGy) MEDICAL HISTORY : Hypothyroidism. Cerebrovascular disease. Hypertension.Diabetes. Skin cancer. SURGICAL HISTORY : Appendectomy. Kyphoplasty. ENCOUNTER: Initial ACUITY: 2 months PAIN SCALE: 6/10 LOCATION: upper quadrant TECHNIQUE: Volumetric scanning of the abdomen and pelvis was performed. Using automated exposure control and ad justment of the mA and/or kV according to patient size, radiation dose was kept as low as reasonably achievable to obtain optimal diagnostic quality images. DICOM format image data is available electro nically for review and comparison. FINDINGS: The lower lungs are clear. There is mild cardiomegaly. The liver is small and shrunken. The stomach is decompressed There are no gallstones There is no ascites. Spleen and pancreas are normal. The adrenal glands are unremarkable There is symmetrical renal function There is no adenopathy. I do not see evidence for colitis. There no inflammatory change is evident In the pelvis uterus is mildly prominent. There is no adnexal mass or free fluid Review of bone windows reveals degenerative changes in the lumbar spine with evidence for previous ky phoplasty. CONCLUSION: Decompressed stomach with thickened bowel wall, nonspecific There are no gallstones There no inflammatory changes evident. David Toure MD FACR on November 07, 2017 at 12:41 Board Certified Radiologist. This report was verified electronically.
--- NOTE | 2017-11-07 16:55 | EKG ---
Date Performed: 11/07/2017 Time Performed: 11:40:25 PTAGE: 82 years EKG: ATRIAL FIBRILLATION SEPTAL Q WAVES NONSPECIFIC ST CHANGES ABNORMAL ECG PREVIOUS TRACING : 07/24/2017 17.10 Since the previous tracing, no significant change noted DOCTOR: aJn Holguin Interpretating Date/Time 11/07/2017 16:53:22
== END 2017-11-07 13:37 | disposition home or self-care (01) ==
LOC: PHED 11:07
DX: R10.13 Epigastric pain (principal); R79.1 Abnormal coagulation profile; I48.91 Unspecified atrial fibrillation; I10 Essential (primary) hypertension; E11.9 Type 2 diabetes mellitus without complications; E78.00 Pure hypercholesterolemia, unspecified; J44.9 Chronic obstructive pulmonary disease, unspecified; K21.9 Gastro-esophageal reflux disease without esophagitis; Z87.891 Personal history of nicotine dependence
CPT/HCPCS: 74177; 80053; 83690; 85025; 85610; 85730; 93005; 96361; 96374; 96375; 99285; C9113; J2270; J7030; Q9967

== ENCOUNTER → 2017-11-17 | Outpatient (CLI) | payer MEDICARE ==
[~2017-11-17] MED LIST changes: +Budeson-Formot 80-4.5 Mcg Inh INH; -CELE1CAP8 PO; +CHOL1000 PO; +COUM2TAB PO; +DULO1CAP2 PO; +LISI-519 PO; +LISI10TA PO; +Lactulose Liq PO; +MEGE40TA PO; +METF500 PO; +OXYC1CAP PO; +PANT40TA3 PO; -PERC5TAB12 PO; +PERI PO; +POLY17S PO; +SENN1TAB86 PO; +WARF-20 PO
[2017-11-17 12:56] LABS: AUTOMATED NEUTROPHIL # 4.2 TH/MM3 (1.8-7.7); BASOPHIL # 0.1 TH/MM3 (0-0.2); BASOPHIL % 1.1 % (0.0-2.0); EOSINOPHIL # 0.1 TH/MM3 (0-0.4); EOSINOPHIL % 2.3 % (0.0-4.0); HEMATOCRIT 40.3 % (35.0-46.0); HEMOGLOBIN 13.4 GM/DL (11.6-15.3); LYMPH % 21.9 % (9.0-44.0); LYMPHOCYTE # 1.4 TH/MM3 (1.0-4.8); MEAN CELL VOLUME 97.2 FL (80.0-100.0); MEAN CORPUSCULAR HEMOGLOBIN 32.4 PG (27.0-34.0); MEAN CORPUSCULAR HGB CONC 33.3 % (32.0-36.0); MEAN PLATELET VOLUME 9.1 FL (7.0-11.0); MONO % 9.2 % (0.0-8.0); MONOCYTE # 0.6 TH/MM3 (0-0.9); NEUT % 65.5 % (16.0-70.0); PLATELET COUNT 269 TH/MM3 (150-450); RED BLOOD COUNT 4.15 MIL/MM3 (4.00-5.30); RED CELL DISTRIBUTION WIDTH 15.1 % (11.6-17.2); WHITE BLOOD COUNT 6.5 TH/MM3 (4.0-11.0)
[2017-11-17 13:28] LABS: ALBUMIN 3.6 GM/DL (3.4-5.0); AST (GOT) 33 U/L (15-37); BICARBONATE 29.4 MEQ/L (21.0-32.0); BLOOD UREA NITROGEN 15 MG/DL (7-18); CALCIUM 9.1 MG/DL (8.5-10.1); CHLORIDE 101 MEQ/L (98-107); CREATININE 0.72 MG/DL (0.50-1.00); GLOMERULAR FILTRATION RATE 78 ML/MIN (>89); GLUCOSE,FASTING 186 MG/DL (74-99); SODIUM (NA) 140 MEQ/L (136-145)
[2017-11-17 13:31] LABS: ALKALINE PHOSPHATASE 104 U/L (45-117); ALT (GPT) 31 U/L (10-53); TOTAL BILIRUBIN ADULT 0.6 MG/DL (0.2-1.0)
[2017-11-17 13:31] LABS: BILIRUBIN, URINE NEG (NEG); BLOOD, URINE NEG (NEG); CALCIUM OXALATE CRYSTALS,URINE MANY /hpf; GLUCOSE,URINE NEG (NEG); HYALINE CAST, URINE 15 /lpf (RARE); KETONE, URINE TRACE mg/dL (NEG); MUCUS URINE FEW /lpf (OCC); NITRITE,URINE NEG (NEG); PH, URINE 5.5 (5.0-8.5); SQUAMOUS EPITHELIAL CELL URINE 2 /hpf (0-5); URINE COLOR DARK-YELLOW (YELLW/STRAW); URINE LEUKOCYTE ESTERASE TRACE (NEG)
== END ==
LOC: CPRE 12:11
PROVIDERS: ATTEND Neurological Surgery
DX: Z01.812 Encounter for preprocedural laboratory examination (principal); M48.50XA Collapsed vertebra, not elsewhere classified, site unspecified, initial encounter for fracture
CPT/HCPCS: 36415; 80053; 81001; 85025; 87640; 87641

== ENCOUNTER 2017-11-18 08:25 | Inpatient (IN) | payer MEDICARE, OTHER ==
[2017-11-18] VITALS (7 sets, daily range): BP systolic 140–194; BP diastolic 67–91; PULSE 69–89; RESP 12–17; TEMP 97.6–98.3; O2SAT 86–100
[~2017-11-18] VITALS: Ht 167.6 cm; Wt 62.1 kg
[~2017-11-18 08:25] MED LIST changes: -Budeson-Formot 80-4.5 Mcg Inh INH; -CHOL1000 PO; -COUM2TAB PO; -DULO1CAP2 PO; -LISI-519 PO; -LISI10TA PO; -LISI10TA3 PO; -Lactulose Liq PO; -MEGE40TA PO; -METF500 PO; -OXYC1CAP PO; -PANT40TA3 PO; -PERI PO; -POLY17S PO; -WARF-20 PO
[2017-11-18 09:04] LABS: BILIRUBIN, URINE NEG (NEG); BLOOD, URINE NEG (NEG); GLUCOSE,URINE NEG (NEG); HYALINE CAST, URINE 6 /lpf (RARE); KETONE, URINE NEG (NEG); NITRITE,URINE NEG (NEG); PH, URINE 6.5 (5.0-8.5); SQUAMOUS EPITHELIAL CELL URINE <1 /hpf (0-5); URINE COLOR YELLOW (YELLW/STRAW); URINE LEUKOCYTE ESTERASE NEG (NEG)
[2017-11-18 09:13] LABS: AUTOMATED NEUTROPHIL # 5.1 TH/MM3 (1.8-7.7); BASOPHIL % 0.5 % (0.0-2.0); EOSINOPHIL % 0.7 % (0.0-4.0); HEMATOCRIT 41.9 % (35.0-46.0); HEMOGLOBIN 13.8 GM/DL (11.6-15.3); LYMPH % 16.6 % (9.0-44.0); LYMPHOCYTE # 1.2 TH/MM3 (1.0-4.8); MEAN CELL VOLUME 98.6 FL (80.0-100.0); MEAN CORPUSCULAR HEMOGLOBIN 32.5 PG (27.0-34.0); MEAN PLATELET VOLUME 9.8 FL (7.0-11.0); MONO % 8.1 % (0.0-8.0); MONOCYTE # 0.6 TH/MM3 (0-0.9); NEUT % 74.1 % (16.0-70.0); PLATELET COUNT 232 TH/MM3 (150-450); RED BLOOD COUNT 4.25 MIL/MM3 (4.00-5.30); RED CELL DISTRIBUTION WIDTH 15.3 % (11.6-17.2); WHITE BLOOD COUNT 6.9 TH/MM3 (4.0-11.0)
--- NOTE | 2017-11-18 09:15 | PD ---
HPI Chief Complaint: OD/ Ingestion Time Seen by Provider: 09:00 Travel History International Travel<30 days: No Contact w/Intl Traveler<30days: No Traveled to known affect area: No History of Present Illness HPI 82-year-old female patient presents to the ER today brought and by EMS, apparently had been found by neighbor, has had history of chronic back pains for which she is getting surgery tomorrow with Dr. Lundberg, multiple medical issues, atrial fibrillation currently on Coumadin, presents because she apparently had taken an intentional overdose of 15 mg of her 5 mg oxycodone's in an attempt to end her life. She had taken the medications at about 5 AM. She denies other ingestions. She currently states that she is nauseous. She denies any chest pains, trouble breathing, or other symptoms. Modifying Factors: None Associated Signs & Symptoms: intentional overdose of oxycodone Risk Factors: Chronic pain PFSH Past Medical History Hx Anticoagulant Therapy: Yes (WARFARIN) Arthritis: Yes Asthma: Yes Atrial Fibrillation: Yes Blood Disorders: No Anxiety: Yes Depression: Yes Heart Rhythm Problems: Yes (A FIB) Cancer: Yes (SKIN CANCER FOREHEAD) Cardiovascular Problems: Yes (A. FIB, HTN, CHOL) High Cholesterol: Yes Chemotherapy: No Chest Pain: No Congestive Heart Failure: No COPD: Yes Cerebrovascular Accident: Yes Diabetes: Yes Diminished Hearing: No Endocrine: Yes Gastrointestinal Disorders: Yes (GERD) GERD: Yes Glaucoma: No Genitourinary: No Hepatitis: No Hiatal Hernia: No Hypertension: Yes Immune Disorder: No Implanted Vascular Access Dvce: No Musculoskeletal: Yes (ARTHRITIS) Neurologic: No (TIA) Psychiatric: No Reproductive: No Respiratory: Yes (COPD) Immunizations Current: Yes Migraines: Yes Myocardial Infarction: No Sickle Cell Disease: No Sleep Apnea: Yes Thyroid Disease: Yes (HYPO) Menopausal: Yes Past Surgical History Abdominal Surgery: Yes (APPENDECTOMY ) AICD: No Appendectomy: Yes Body Medical Devices: CEMENT BACK (KYPHOPLASTY) Cardiac Surgery: No Ear Surgery: No Endocrine Surgery: No Eye Surgery: No Genitourinary Surgery: No Gynecologic Surgery: No Joint Replacement: Yes (RIGHT KNEE) Neurologic Surgery: No Oral Surgery: Yes (T & A) Pacemaker: No Thoracic Surgery: No Tonsillectomy: Yes Social History Alcohol Use: No Tobacco Use: No (QUIT LONG AGO) Substance Use: No Allergies-Medications (Allergen,Severity, Reaction): Coded Allergies: No Known Allergies (Verified Allergy, Unknown, 11/18/17) Reported Meds & Prescriptions Reported Meds & Active Scripts Active Reported Oxycodone (Oxycodone HCl) 5 Mg Cap 5 Mg PO Q4H PRN Colace 2-in-1 Tablet (Sennosides/Docusate Sodium) 8.6 Mg-50 Mg Tablet 2 Tab PO DAILY Warfarin 2 Mg Tab 2 Mg PO TUTHSASU Vitamin D-1000 (Cholecalciferol) 1,000 Unit Tab 1,000 Units PO DAILY Vitamin B-12 (Cyanocobalamin (Vitamin B-12)) 1,000 Mcg/Ml Drops 1 Ml SQ MONTHLY Symbicort Inh (Budesonide/Formoterol Fumarate) 80-4.5 Mcg/Act Aero 2 Puff INH Q12HR Ipratropium Nasal 0.06% [place] 2 [place] EACH NARE DAILY Atorvastatin (Atorvastatin Calcium) 40 Mg Tab 40 Mg PO DAILY Glipizide 5 Mg Tab 2.5 Mg PO BIDAC Take 30 minutes before a meal Omeprazole 40 Mg Cap 40 Mg PO DAILY Atenolol 50 Mg Tab 50 Mg PO BID Fenofibrate 150 Mg Cap 150 Mg PO DAILY Review of Systems Except as stated in HPI: all other systems reviewed are Neg Physical Exam Narrative GENERAL: Well-developed elderly white female patient currently in moderate distress. Awake and oriented 3. Alert. Answering questions appropriately. SKIN: Focused skin assessment warm/dry. HEAD: Atraumatic. Normocephalic. EYES: Pupils are pinpoint, equal and round, poorly reactive light bilaterally. No scleral icterus. No injection or drainage. ENT: No nasal bleeding or discharge. Mucous membranes pink and moist. NECK: Trachea midline. No JVD. CARDIOVASCULAR: Regular rate and rhythm. No murmur appreciated. RESPIRATORY: No accessory muscle use. Clear to auscultation. Breath sounds equal bilaterally. GASTROINTESTINAL: Abdomen soft, non-tender, nondistended. Hepatic and splenic margins not palpable. MUSCULOSKELETAL: No obvious deformities. No clubbing. No cyanosis. No edema. NEUROLOGICAL: Awake and alert. No obvious cranial nerve deficits. Motor grossly within normal limits. Normal speech. PSYCHIATRIC: Depressed mood and affect; insight and judgment poor. Data Data Last Documented VS Vital Signs Date Time Temp Pulse Resp B/P (MAP) Pulse Ox O2 Delivery O2 Flow Rate FiO2 11/18/17 09:40 69 16 190/79 (116) 98 Nasal Cannula 2.00 11/18/17 08:34 97.6 Orders Orders Complete Blood Count With Diff (11/18/17 08:39) Comprehensive Metabolic Panel (11/18/17 08:39) Thyroid Stimulating Hormone (11/18/17 08:39) Urinalysis - C+S If Indicated (11/18/17 08:39) Electrocardiogram (11/18/17 08:39) Psych Screen (11/18/17 08:39) Drug Screen, Random Urine (11/18/17 08:39) Alcohol (Ethanol) (11/18/17 08:45) Salicylates (Aspirin) (11/18/17 08:45) Tylenol (Acetaminophen) (11/18/17 08:45) Electrocardiogram (11/18/17 09:00) Coag Profile (11/18/17 10:12) Admit Order (Ed Use Only) (11/18/17 10:51) Labs Laboratory Tests Test 11/18/17 08:45 11/18/17 08:50 11/18/17 08:53 White Blood Count 6.9 TH/MM3 Red Blood Count 4.25 MIL/MM3 Hemoglobin 13.8 GM/DL Hematocrit 41.9 % Mean Corpuscular Volume 98.6 FL Mean Corpuscular Hemoglobin 32.5 PG Mean Corpuscular Hemoglobin Concent 33.0 % Red Cell Distribution Width 15.3 % Platelet Count 232 TH/MM3 Mean Platelet Volume 9.8 FL Neutrophils (%) (Auto) 74.1 % Lymphocytes (%) (Auto) 16.6 % Monocytes (%) (Auto) 8.1 % Eosinophils (%) (Auto) 0.7 % Basophils (%) (Auto) 0.5 % Neutrophils # (Auto) 5.1 TH/MM3 Lymphocytes # (Auto) 1.2 TH/MM3 Monocytes # (Auto) 0.6 TH/MM3 Eosinophils # (Auto) 0.0 TH/MM3 Basophils # (Auto) 0.0 TH/MM3 CBC Comment AUTO DIFF Differential Comment AUTO DIFF CONFIRMED Platelet Estimate NORMAL Platelet Morphology Comment NORMAL Acanthocytes OCC Blood Urea Nitrogen 13 MG/DL Creatinine 0.66 MG/DL Random Glucose 166 MG/DL Total Protein 6.7 GM/DL Albumin 3.5 GM/DL Calcium Level 9.2 MG/DL Alkaline Phosphatase 94 U/L Aspartate Amino Transf (AST/SGOT) 31 U/L Alanine Aminotransferase (ALT/SGPT) 28 U/L Total Bilirubin 0.7 MG/DL Sodium Level 140 MEQ/L Potassium Level 4.0 MEQ/L Chloride Level 105 MEQ/L Carbon Dioxide Level 25.7 MEQ/L Anion Gap 9 MEQ/L Estimat Glomerular Filtration Rate 86 ML/MIN Thyroid Stimulating Hormone 3rd Gen 1.070 uIU/ML Salicylates Level LESS THAN 1.7 MG/DL Acetaminophen Level 41.7 MCG/ML Ethyl Alcohol Level LESS THAN 3 MG/DL Urine Color YELLOW Urine Turbidity CLEAR Urine pH 6.5 Urine Specific [place] 1.013 Urine Protein 30 mg/dL Urine Glucose (UA) NEG mg/dL Urine Ketones NEG mg/dL Urine Occult Blood NEG Urine Nitrite NEG Urine Bilirubin NEG Urine Urobilinogen LESS THAN 2.0 MG/DL Urine Leukocyte Esterase NEG Urine RBC 1 /hpf Urine WBC 2 /hpf Urine Squamous Epithelial Cells <1 /hpf Urine Hyaline Casts 6 /lpf Microscopic Urinalysis Comment CATH-CULT NOT IND Urine Opiates Screen NEG Urine Barbiturates Screen NEG Urine Amphetamines Screen NEG Urine Benzodiazepines Screen NEG Urine Cocaine Screen NEG Urine Cannabinoids Screen NEG MDM Medical Decision Making Medical Screen Exam Complete: Yes Emergency Medical Condition: Yes Medical Record Reviewed: Yes Interpretation(s) EKG shows A. fib at a rate of 80 bpm. No signs of acute ST elevations or depressions. QRS is fairly narrow. Laboratory Tests Test 11/18/17 08:45 11/18/17 08:50 11/18/17 08:53 Neutrophils (%) (Auto) 74.1 % (16.0-70.0) Monocytes (%) (Auto) 8.1 % (0.0-8.0) Acanthocytes OCC (NORMAL) Random Glucose 166 MG/DL (74-106) Estimat Glomerular Filtration Rate 86 ML/MIN (>89) Salicylates Level LESS THAN 1.7 MG/DL Acetaminophen Level 41.7 MCG/ML (10.0-30.0) Urine Protein 30 mg/dL (NEG-TRACE) Differential Diagnosis Intentional overdose of opiates: Rule out coingestions versus electrolyte abnormalities Narrative Course EKG did not show significant acute dysrhythmias. She has a Tylenol level at 40 which is below toxic levels at 4 hours out. She did not have other significant coingestions. At this point, my plan would be to admit her for further medical treatment and observation. Poison control has been called by patient's nurse. Case has been with Dr. Alvarez for admission. Diagnosis Primary Impression: Intentional opiate overdose Admitting Information Admitting Physician Requests: Admit Alecia Collins MD November 18, 2017 09:15
[2017-11-18 09:24] LABS: ALBUMIN 3.5 GM/DL (3.4-5.0); AST (GOT) 31 U/L (15-37); BICARBONATE 25.7 MEQ/L (21.0-32.0); BLOOD UREA NITROGEN 13 MG/DL (7-18); CALCIUM 9.2 MG/DL (8.5-10.1); CHLORIDE 105 MEQ/L (98-107); CREATININE 0.66 MG/DL (0.50-1.00); GLOMERULAR FILTRATION RATE 86 ML/MIN (>89); GLUCOSE,RANDOM 166 MG/DL (74-106); SODIUM (NA) 140 MEQ/L (136-145)
[2017-11-18 09:25] LABS: ALT (GPT) 28 U/L (10-53)
[2017-11-18 09:35] LABS: ALKALINE PHOSPHATASE 94 U/L (45-117); TOTAL BILIRUBIN ADULT 0.7 MG/DL (0.2-1.0); TOTAL PROTEIN 6.7 GM/DL (6.4-8.2)
[2017-11-18] MEDS ORDERED: OXYC1CAP PO (09:53)
[2017-11-18 10:04] LABS: ACETAMINOPHEN 41.7 MCG/ML (10.0-30.0)
[2017-11-18 10:13] LABS: ACANTHOCYTES OCC (NORMAL)
[2017-11-18] MEDS ORDERED: NALOXONE HCL 0.4 MG/ML AMP IV PUSH PRN (11:30)
[2017-11-18] MEDS ORDERED: SENNOSIDES 8.6 MG TAB PO PRN (11:30)
[2017-11-18] MEDS ORDERED: LACTULOSE SYRUP 20 GM/30 ML CUP PO PRN (11:30)
[2017-11-18] MEDS ORDERED: BISACODYL 10 MG SUPP RECTAL PRN (11:30)
[2017-11-18] MEDS ORDERED: MAGNESIUM HYDROXIDE SUSP 30 ML CUP PO PRN (11:30)
[2017-11-18] MEDS ORDERED: SODIUM CHLORIDE 0.9% FLUSH 10 ML FLUSH IV FLUSH PRN (11:30)
[2017-11-18 11:43] LABS: INTERNATIONAL NORMALIZED RATIO 1.2 RATIO; PROTHROMBIN TIME - PATIENT 12.4 SEC (9.8-11.6)
--- NOTE | 2017-11-18 12:08 | HHI.HP ---
HPI Service [facility] Primary Care Physician Ramses Rios MD Admission Diagnosis Intentional opiate overdose/Reyes act Diagnoses: Travel History International Travel<30 Days: No Contact w/Intl Traveler <30 Da: No Traveled to Known Affected Are: No History of Present Illness 82-year-old female with a history of depression, atrial fibrillation on Coumadin , chronic back pain, who is scheduled to undergo neurosurgery tomorrow who presents with intentional overdose of oxycodone/acetaminophen. She took a handful of oxycodone/acetaminophen 5 mg tablets this morning around 5 AM. She reports previously feeling at baseline. She currently reports no adverse effects other than her pain is gone. She denies any chest pain, shortness of breath, nausea, vomiting. She does report chronic constipation with postprandial epigastric fullness, and is due to see GI as outpatient. Denies any fevers, chills Review of Systems Except as stated in HPI: all other systems reviewed are Neg Past Family Social History Past Medical History Atrial fibrillation on Coumadin Hypertension Anxiety and depression History of skin cancer Hyperlipidemia COPD GERD Sleep apnea Past Surgical History Appendectomy Right knee replacement History of kyphoplasty Hernia repair Reported Medications Reported Meds & Active Scripts Active Reported Oxycodone (Oxycodone HCl) 5 Mg Cap 5 Mg PO Q4H PRN Colace 2-in-1 Tablet (Sennosides/Docusate Sodium) 8.6 Mg-50 Mg Tablet 2 Tab PO DAILY Warfarin 2 Mg Tab 2 Mg PO TUTHSASU Vitamin D-1000 (Cholecalciferol) 1,000 Unit Tab 1,000 Units PO DAILY Vitamin B-12 (Cyanocobalamin (Vitamin B-12)) 1,000 Mcg/Ml Drops 1 Ml SQ MONTHLY Symbicort Inh (Budesonide/Formoterol Fumarate) 80-4.5 Mcg/Act Aero 2 Puff INH Q12HR Ipratropium Nasal 0.06% [place] 2 [place] EACH NARE DAILY Atorvastatin (Atorvastatin Calcium) 40 Mg Tab 40 Mg PO DAILY Glipizide 5 Mg Tab 2.5 Mg PO BIDAC Take 30 minutes before a meal Omeprazole 40 Mg Cap 40 Mg PO DAILY Atenolol 50 Mg Tab 50 Mg PO BID Fenofibrate 150 Mg Cap 150 Mg PO DAILY Allergies: Coded Allergies: No Known Allergies (Verified Allergy, Unknown, 11/18/17) Family History Paternal medical history significant for [place], at the age of 63. Mother secondary to breast cancer Social History Non-smoker. Nondrinker. Denies illicit drugs. Physical Exam Vital Signs Vital Signs Date Time Temp Pulse Resp B/P (MAP) Pulse Ox O2 Delivery O2 Flow Rate FiO2 11/18/17 11:09 77 15 174/85 (114) 100 Nasal Cannula 2.00 11/18/17 09:40 69 16 190/79 (116) 98 Nasal Cannula 2.00 11/18/17 08:34 70 12 99 Nasal Cannula 2.00 11/18/17 08:34 97.6 89 12 194/91 (125) 86 Physical Exam GENERAL: This is a well-nourished, well-developed patient, in no apparent distress. SKIN: No rashes, ecchymoses or lesions. Cool and dry. HEAD: Atraumatic. Normocephalic. No temporal or scalp tenderness. EYES: Pupils equal round and reactive. Extraocular motions intact. No scleral icterus. No injection or drainage. ENT: Nose without bleeding, purulent drainage or septal hematoma. Throat without erythema, tonsillar hypertrophy or exudate. Uvula midline. Airway patent. NECK: Trachea midline. No JVD or lymphadenopathy. Supple, nontender, no meningeal signs. CARDIOVASCULAR: Regular rate and rhythm without murmurs, gallops, or rubs. RESPIRATORY: Clear to auscultation. Breath sounds equal bilaterally. No wheezes , rales, or rhonchi. GASTROINTESTINAL: Abdomen soft, non-tender, nondistended. No hepato-splenomegaly , or palpable masses. No guarding. MUSCULOSKELETAL: Extremities without clubbing, cyanosis, or edema. No joint tenderness, effusion, or edema noted. No calf tenderness. Negative Homans sign bilaterally. NEUROLOGICAL: Awake and alert. Cranial nerves II through XII intact. Motor and sensory grossly within normal limits. Five out of 5 muscle strength in all muscle groups. Normal speech. Laboratory Laboratory Tests Test 11/18/17 08:50 11/18/17 08:53 11/18/17 11:20 White Blood Count 6.9 Red Blood Count 4.25 Hemoglobin 13.8 Hematocrit 41.9 Mean Corpuscular Volume 98.6 Mean Corpuscular Hemoglobin 32.5 Mean Corpuscular Hemoglobin Concent 33.0 Red Cell Distribution Width 15.3 Platelet Count 232 Mean Platelet Volume 9.8 Neutrophils (%) (Auto) 74.1 Lymphocytes (%) (Auto) 16.6 Monocytes (%) (Auto) 8.1 Eosinophils (%) (Auto) 0.7 Basophils (%) (Auto) 0.5 Neutrophils # (Auto) 5.1 Lymphocytes # (Auto) 1.2 Monocytes # (Auto) 0.6 Eosinophils # (Auto) 0.0 Basophils # (Auto) 0.0 CBC Comment AUTO DIFF Differential Comment AUTO DIFF CONFIRMED Platelet Estimate NORMAL Platelet Morphology Comment NORMAL Acanthocytes OCC Blood Urea Nitrogen 13 Creatinine 0.66 Random Glucose 166 Total Protein 6.7 Albumin 3.5 Calcium Level 9.2 Alkaline Phosphatase 94 Aspartate Amino Transf (AST/SGOT) 31 Alanine Aminotransferase (ALT/SGPT) 28 Total Bilirubin 0.7 Sodium Level 140 Potassium Level 4.0 Chloride Level 105 Carbon Dioxide Level 25.7 Anion Gap 9 Estimat Glomerular Filtration Rate 86 Thyroid Stimulating Hormone 3rd Gen 1.070 Salicylates Level LESS THAN 1.7 Acetaminophen Level 41.7 Ethyl Alcohol Level LESS THAN 3 Urine Color YELLOW Urine Turbidity CLEAR Urine pH 6.5 Urine Specific [place] 1.013 Urine Protein 30 Urine Glucose (UA) NEG Urine Ketones NEG Urine Occult Blood NEG Urine Nitrite NEG Urine Bilirubin NEG Urine Urobilinogen LESS THAN 2.0 Urine Leukocyte Esterase NEG Urine RBC 1 Urine WBC 2 Urine Squamous Epithelial Cells <1 Urine Hyaline Casts 6 Microscopic Urinalysis Comment CATH-CULT NOT IND Urine Opiates Screen NEG Urine Barbiturates Screen NEG Urine Amphetamines Screen NEG Urine Benzodiazepines Screen NEG Urine Cocaine Screen NEG Urine Cannabinoids Screen NEG Prothrombin Time 12.4 Prothromb Time International Ratio 1.2 Activated Partial Thromboplast Time 21.9 Result Diagram: 11/18/17 0850 11/18/17 0850 Caprini VTE Risk Assessment Caprini VTE Risk Assessment: Mod/High Risk (score >= 2) Caprini Risk Assessment Model Point Value = 1 Point Value = 2 Point Value = 3 Point Value = 5 Age 41-60 Minor surgery BMI > 25 kg/m2 Swollen legs Varicose veins or History of unexplained or recurrent spontaneous Oral contraceptives or hormone replacement Sepsis (< 1 month) Serious lung disease, including pneumonia (< 1 month) Abnormal pulmonary function Acute myocardial infarction Congestive heart failure (< 1 month) History of inflammatory bowel disease Medical patient at bed rest Age 61-74 Arthroscopic surgery Major open surgery (> 45 min) Laparoscopic surgery (> 45 min) Malignancy Confined to bed (> 72 hours) Immobilizing plaster cast Central venous access Age >= 75 History of VTE Family history of VTE Factor V Leiden Prothrombin [id number] Lupus anticoagulant Anticardiolipin antibodies Elevated serum homocysteine Heparin-induced thrombocytopenia Other congenital or acquired thrombophilia Stroke (< 1 month) Elective arthroplasty Hip, pelvis, or leg fracture Acute spinal cord injury (< 1 month) Prophylaxis Regimen Total Risk Factor Score Risk Level Prophylaxis Regimen 0-1 Low Early ambulation 2 Moderate Order ONE of the following: *Sequential Compression Device (SCD) *Heparin 5000 units SQ BID 3-4 Higher Order ONE of the following medications: *Heparin 5000 units SQ TID *Enoxaparin/Lovenox 40 mg SQ daily (WT < 150 kg, CrCl > 30 mL/min) *Enoxaparin/Lovenox 30 mg SQ daily (WT < 150 kg, CrCl > 10-29 mL/min) *Enoxaparin/Lovenox 30 mg SQ BID (WT < 150 kg, CrCl > 30 mL/min) AND/OR *Sequential Compression Device (SCD) 5 or more Highest Order ONE of the following medications: *Heparin 5000 units SQ TID (Preferred with Epidurals) *Enoxaparin/Lovenox 40 mg SQ daily (WT < 150 kg, CrCl > 30 mL/min) *Enoxaparin/Lovenox 30 mg SQ daily (WT < 150 kg, CrCl > 10-29 mL/min) *Enoxaparin/Lovenox 30 mg SQ BID (WT < 150 kg, CrCl > 30 mL/min) AND *Sequential Compression Device (SCD) Assessment and Plan Assessment and Plan //Acute narcotic overdose, acetaminophen overdose //Anxiety and depression. Acetaminophen level 41. = No active plan other than drug overdose. -Reyes act. = Pending psychiatric evaluation. //Chronic back pain. Hold off on narcotics for now. Waiting to hear back from Dr. Lundberg. //Atrial fibrillation INR subtherapeutic Hold off on anticoagulation for now = Continue rate control. //Diabetes mellitus. Diabetic diet and insulin sliding scale //Hypertension. Continue home medications. //COPD. Chronic. Continue home medications //GERD. Chronic. Continue home medications. //Hyperlipidemia. Chronic. Continue statin. //DVT prophylaxis. SCDs. Discussed Condition With Patient, nurse, ED physician Physician Certification 2 Midnight Certification Type: Admission for Inpatient Services Order for Inpatient Services The services are ordered in accordance with Medicare regulations or non- Medicare payer requirements, as applicable. In the case of services not specified as inpatient-only, they are appropriately provided as inpatient services in accordance with the 2-midnight benchmark. Estimated LOS (days): 2 days is the estimated time the patient will need to remain in the hospital, assuming treatment plan goals are met and no additional complications. Post-Hospital Plan: Not yet determined Rashad Alvarez MD November 18, 2017 12:08
[2017-11-18] MEDS: INSULIN ASPART SUPPLEMENTAL SCALE SQ SCH ×3 (14:00→20:28)
[2017-11-18] MEDS ORDERED: ENALAPRILAT 1.25 MG/ML VIAL IV PUSH PRN (14:30)
[2017-11-18] MEDS: BUDESONIDE-FORMOTEROL 80/4.5 MCG INHALER INH SCH (20:23)
[2017-11-18] MEDS: DOCUSATE SODIUM 50 MG/SENNA 8.6 MG TAB PO SCH (20:25)
[2017-11-18] MEDS: ATENOLOL 50 MG TAB PO SCH (20:25)
[2017-11-18] MEDS: SODIUM CHLORIDE 0.9% FLUSH 10 ML FLUSH IV FLUSH SCH (20:25)
[2017-11-19] VITALS (7 sets, daily range): BP systolic 136–174; BP diastolic 63–83; PULSE 65–89; RESP 17–20; TEMP 97.3–98.2; O2SAT 98–100
[2017-11-19] MEDS ORDERED: VANCOMYCIN 1 GM/200 ML PREMIX IV SCH (06:00)
--- NOTE | 2017-11-19 07:25 | EKG ---
Date Performed: 11/18/2017 Time Performed: 08:40:31 PTAGE: 82 years EKG: ATRIAL FIBRILLATION MODERATE INTRAVENTRICULAR CONDUCTION DELAY NONSPECIFIC ST & T-WAVE ABNO RMALITY ABNORMAL RHYTHM ECG INTERPRETATION BASED ON A DEFAULT AGE OF 40 YEARS PREVIOUS TRACING : 11/07/2017 11.40 DOCTOR: Mookie Andrade Interpretating Date/Time 11/19/2017 07:21:35
[2017-11-19] MEDS: INSULIN ASPART SUPPLEMENTAL SCALE SQ SCH ×4 (08:00→22:58)
[2017-11-19] MEDS: BUDESONIDE-FORMOTEROL 80/4.5 MCG INHALER INH SCH ×2 (09:00→20:34)
[2017-11-19] MEDS ORDERED: IPRATROPIUM 0.06% NASAL SCH (09:00)
[2017-11-19] MEDS: ATORVASTATIN 40 MG TAB PO SCH (09:24)
[2017-11-19] MEDS: ATENOLOL 50 MG TAB PO SCH ×2 (09:24→20:32)
[2017-11-19] MEDS: SODIUM CHLORIDE 0.9% FLUSH 10 ML FLUSH IV FLUSH SCH ×2 (09:24→20:32)
[2017-11-19] MEDS: PANTOPRAZOLE SOD 40 MG DELAYED RELEASE TAB PO SCH (09:24)
[2017-11-19] MEDS: DOCUSATE SODIUM 50 MG/SENNA 8.6 MG TAB PO SCH ×2 (09:24→20:32)
[2017-11-19 09:59] LABS: AUTOMATED NEUTROPHIL # 5.4 TH/MM3 (1.8-7.7); BASOPHIL % 0.6 % (0.0-2.0); EOSINOPHIL # 0.2 TH/MM3 (0-0.4); HEMATOCRIT 37.9 % (35.0-46.0); HEMOGLOBIN 12.5 GM/DL (11.6-15.3); LYMPH % 19.5 % (9.0-44.0); LYMPHOCYTE # 1.5 TH/MM3 (1.0-4.8); MEAN CELL VOLUME 97.4 FL (80.0-100.0); MEAN CORPUSCULAR HGB CONC 32.9 % (32.0-36.0); MEAN PLATELET VOLUME 9.2 FL (7.0-11.0); MONO % 9.2 % (0.0-8.0); MONOCYTE # 0.7 TH/MM3 (0-0.9); NEUT % 68.7 % (16.0-70.0); PLATELET COUNT 233 TH/MM3 (150-450); RED BLOOD COUNT 3.89 MIL/MM3 (4.00-5.30); RED CELL DISTRIBUTION WIDTH 15.3 % (11.6-17.2); WHITE BLOOD COUNT 7.8 TH/MM3 (4.0-11.0)
[2017-11-19 10:37] LABS: ALBUMIN 3.2 GM/DL (3.4-5.0); AST (GOT) 24 U/L (15-37); BLOOD UREA NITROGEN 12 MG/DL (7-18); CALCIUM 8.8 MG/DL (8.5-10.1); CHLORIDE 103 MEQ/L (98-107); CREATININE 0.57 MG/DL (0.50-1.00); GLOMERULAR FILTRATION RATE 102 ML/MIN (>89); GLUCOSE,RANDOM 87 MG/DL (74-106); SODIUM (NA) 143 MEQ/L (136-145)
[2017-11-19 10:40] LABS: ALKALINE PHOSPHATASE 84 U/L (45-117); ALT (GPT) 23 U/L (10-53); TOTAL BILIRUBIN ADULT 0.6 MG/DL (0.2-1.0); TOTAL PROTEIN 6.2 GM/DL (6.4-8.2)
--- NOTE | 2017-11-19 11:20 | PD.PSY.CON ---
Provisional Diagnosis Admission Date November 18, 2017 at 10:54 Arp I. Adjustment disorder with depressed mood vs major depressive disorder, single episode, without psychosis Arp II. Deferred Arp III. A. fib, COPD, hypertension, lower back pain, diabetes Arp IV. Chronic pain Arp V. 50 History of Present Illness Service Psychiatry Consult Requested By Suicidal attempt Reason for Consult Suicidal attempt Primary Care Physician Ramses Rios MD HPI The patient is a 82-year-old woman, domiciled alone in [place], never , no kids, with previous psychiatric history of depression, no previous suicidal attempts, no previous psychiatric hospitalizations, with medical history of atrial fibrillation on Coumadin, chronic back pain, who is scheduled to undergo neurosurgery today who presented yesterday with intentional overdose of oxycodone/acetaminophen. She took a handful of oxycodone/acetaminophen 5 mg tablets this morning around 5 AM. She reports previously feeling at baseline. She currently reports no adverse effects other than her pain is gone. Consulted to psychiatry to address suicidal intent. EMR reviewed. Case discussed with nursing charge. I also got collateral information from her niece Dia Wesley. Her niece reports that the patient has been depressed the last weeks due to pain. She says that she was kind of surprised when she knew that she tried to commit suicide. She says that she does not have any knowledge of the patient having any previous psychiatric history other than depression treated as an outpatient. She states that the patient in the last weeks has been quite pessimistic, catastrophic and seeing everything "with a lot of pessimism". on psychiatric evaluation the patient is calm, cooperative, pleasant. Patient reports that she tried to commit suicide because she was in excruciating pain and she could not take it anymore. Patient reports that she has been in a notable pain for 4 months now "and I do not think I can take it anymore". She says that she is hopeful the surgery will help her "but I have no very sure that I really had 2 surgeries before". The patient reports that she feels very depressed "but, at the same time I want to get better and I want to have anything". At this moment she denies suicidal enemas ideation, she denies visual and auditory hallucinations. The patient was able to contract for safety during this hospitalization, she also agrees with taking Cymbalta for depression and to help with the pain. The patient is fully oriented 3, no attention deficit, no fluctuation of consciousness at the moment. She is logical, coherent and relevant. She denies the use of illegal drugs and alcohol. Review of Systems Constitutional: DENIES: Diaphoretic episodes, Fatigue, Fever, Weight gain, Weight loss, Chills, Dizziness, Change in appetite, Night Sweats Endocrine: DENIES: Abnorml menstrual pattern, Heat/cold intolerance, Polydipsia , Polyuria, Polyphagia Eyes: DENIES: Blurred vision, Diplopia, Eye inflammation, Eye pain, Vision loss , Photosensitivity, Double Vision Ears, nose, mouth, throat: DENIES: Tinnitus, Hearing loss, Vertigo, Nasal discharge, Oral lesions, Throat pain, Hoarseness, Ear Pain, Running Nose, Epistaxis, Sinus Pain, Toothache, Odynophagia Respiratory: DENIES: Apneas, Cough, Snoring, Wheezing, Hemoptysis, Sputum production, Shortness of breath Cardiovascular: DENIES: Chest pain, Palpitations, Syncope, Dyspnea on Exertion , PND, Lower Extremity Edema, Orthopnea, Claudication Gastrointestinal: DENIES: Abdominal pain, Black stools, Bloody stools, Constipation, Diarrhea, Nausea, Vomiting, Difficulty Swallowing, Anorexia Genitourinary: DENIES: Abnormal vaginal bleeding, Dysmenorrhea, Dyspareunia, Sexual dysfunction, Urinary frequency, Urinary incontinence, Urgency, Hematuria , Dysuria, Nocturia, Vaginal discharge Musculoskeletal: COMPLAINS OF: Back pain, DENIES: Joint pain, Muscle aches, Stiffness, Joint Swelling, Neck pain Integumentary: DENIES: Abnormal pigmentation, Pruritus, Rash, Nail changes, Breast masses, Breast skin changes, Nipple discharge Hematologic/lymphatic: DENIES: Bruising, Lymphadenopathy Immunologic/allergic: DENIES: Eczema, Urticaria Neurologic: DENIES: Abnormal gait, Headache, Localized weakness, Paresthesias, Seizures, Speech Problems, Tremor, Poor Balance Psychiatric: COMPLAINS OF: Depression, Suicidal Ideation, DENIES: Anxiety, Confusion, Mood changes, Hallucinations, Agitation, Homicidal Ideation, Delusions Past Family Social History Coded Allergies: No Known Allergies (Verified Allergy, Unknown, 11/18/17) Reported Medications Oxycodone (Oxycodone) 5 Mg Cap, 5 MG PO Q4H Y for PAIN, CAP 0 Refills 11/18/17 Sennosides/Docusate Sodium (Colace 2-in-1 Tablet) 8.6 Mg-50 Mg Tablet, 2 TAB PO DAILY 11/17/17 Warfarin (Warfarin) 2 Mg Tab, 2 MG PO TUTHSASU for Blood Clot Prevention, #30 TAB 0 Refills 11/07/17 Cholecalciferol (Vitamin D-1000) 1,000 Unit Tab, 1000 UNITS PO DAILY for Nutritional Supplement, #1 BOTTLE 0 Refills 08/14/17 Cyanocobalamin (Vitamin B-12) (Vitamin B-12) 1,000 Mcg/Ml Drops, 1 ML SQ MONTHLY 08/14/17 Budesonide-Formoterol Inh (Symbicort Inh) 80-4.5 Mcg/Act Aero, 2 PUFF INH Q12HR for Asthma Management, #1 INHALER 0 Refills 07/24/17 Ipratropium Nasal (Ipratropium Nasal) 0.06% [place], 2 SPRAY EACH NARE DAILY, #1 BOTTLE 0 Refills 07/24/17 Atorvastatin (Atorvastatin) 40 Mg Tab, 40 MG PO DAILY for Cholesterol Management , #30 TAB 0 Refills 07/24/17 Glipizide (Glipizide) 5 Mg Tab, 2.5 MG PO BIDAC for Blood Sugar Management, #60 TAB 0 Refills Take 30 minutes before a meal 07/24/17 Omeprazole (Omeprazole) 40 Mg Cap, 40 MG PO DAILY, #30 CAP 0 Refills 07/24/17 Atenolol (Atenolol) 50 Mg Tab, 50 MG PO BID for Blood Pressure Management, #14 TAB 0 Refills 07/24/17 Fenofibrate (Fenofibrate) 150 Mg Cap, 150 MG PO DAILY, #30 CAP 0 Refills 07/24/17 Discontinued Reported Medications Warfarin (Warfarin) 4 Mg Tab, 4 MG PO MoFr for Blood Clot Prevention, #30 TAB 0 Refills 11/07/17 Lisinopril-Hctz (Lisinopril-Hctz) 10-12.5 Mg Tab, 1 TAB PO DAILY for Blood Pressure Management, #30 TAB 0 Refills 11/07/17 Lisinopril (Lisinopril) 10 Mg Tab, 10 MG PO DAILY, #30 TAB 0 Refills 07/24/17 Current Medications Medications (Trade) Dose Ordered Sig/Ritchie Route Start Time Stop Time Status Last Admin (NS Flush) 2 ml UNSCH PRN IV FLUSH 11/18/17 11:30 (NS Flush) 2 ml BID IV FLUSH 11/18/17 21:00 11/19/17 09:24 (Narcan Inj) 0.4 mg UNSCH PRN IV PUSH 11/18/17 11:30 (Stephanie-Colace) 1 tab BID PO 11/18/17 21:00 11/19/17 09:24 (Milk Of Magnesia Liq) 30 ml Q12H PRN PO 11/18/17 11:30 (Senokot) 17.2 mg Q12H PRN PO 11/18/17 11:30 (Dulcolax Supp) 10 mg DAILY PRN RECTAL 11/18/17 11:30 (Lactulose Liq) 30 ml DAILY PRN PO 11/18/17 11:30 (NovoLOG SUPPLEMENTAL SCALE) 1 ACHS SLIDING SCALE SQ 11/18/17 14:00 (Tenormin) 50 mg BID PO 11/18/17 21:00 11/19/17 09:24 (Lipitor) 40 mg DAILY PO 11/19/17 09:00 11/19/17 09:24 (Symbicort 80-4.5 Mcg Inh) 2 puff Q12HR INH 11/18/17 21:00 11/18/17 20:23 Patient Own Medication PT OWN MED: IPRATROP... 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 2) Family support Physical Exam No tremors, no EPS, no withdrawal symptoms, mild psychomotor retardation. Vital Signs Vital Signs Date Time Temp Pulse Resp B/P (MAP) Pulse Ox O2 Delivery O2 Flow Rate FiO2 11/19/17 08:00 98.2 67 20 174/81 (112) 99 11/19/17 04:00 Nasal Cannula 2.00 I/O 11/19/17 11/19/17 11/20/17 08:00 16:00 00:00 Intake Total 0 ml Output Total 0 ml Balance 0 ml Lab Results Test 11/18/17 11:20 11/19/17 09:27 Prothrombin Time 12.4 SEC Prothromb Time International Ratio 1.2 RATIO Activated Partial Thromboplast Time 21.9 SEC White Blood Count 7.8 TH/MM3 Red Blood Count 3.89 MIL/MM3 Hemoglobin 12.5 GM/DL Hematocrit 37.9 % Mean Corpuscular Volume 97.4 FL Mean Corpuscular Hemoglobin 32.0 PG Mean Corpuscular Hemoglobin Concent 32.9 % Red Cell Distribution Width 15.3 % Platelet Count 233 TH/MM3 Mean Platelet Volume 9.2 FL Neutrophils (%) (Auto) 68.7 % Lymphocytes (%) (Auto) 19.5 % Monocytes (%) (Auto) 9.2 % Eosinophils (%) (Auto) 2.0 % Basophils (%) (Auto) 0.6 % Neutrophils # (Auto) 5.4 TH/MM3 Lymphocytes # (Auto) 1.5 TH/MM3 Monocytes # (Auto) 0.7 TH/MM3 Eosinophils # (Auto) 0.2 TH/MM3 Basophils # (Auto) 0.0 TH/MM3 CBC Comment DIFF FINAL Differential Comment Blood Urea Nitrogen 12 MG/DL Creatinine 0.57 MG/DL Random Glucose 87 MG/DL Total Protein 6.2 GM/DL Albumin 3.2 GM/DL Calcium Level 8.8 MG/DL Alkaline Phosphatase 84 U/L Aspartate Amino Transf (AST/SGOT) 24 U/L Alanine Aminotransferase (ALT/SGPT) 23 U/L Total Bilirubin 0.6 MG/DL Sodium Level 143 MEQ/L Potassium Level 3.7 MEQ/L Chloride Level 103 MEQ/L Carbon Dioxide Level 32.0 MEQ/L Anion Gap 8 MEQ/L Estimat Glomerular Filtration Rate 102 ML/MIN Mental Status Examination Appearance: Appropriate Consciousness: Alert Orientation: x4 Motor Activity: Normal gait Speech: Unremarkable Language: Adequate Fund of Knowledge: Adequate Attention and Concentration: Adequate Memory: Unremarkable Mood: Sad Affect: Sad Thought Process & Associations: Intact Thought Content: Appropriate Hallucination Type: None Delusion Type: None Suicidal Ideation: Yes Suicidal Plan: No Suicidal Intention: No Homicidal Ideation: No Homicidal Plan: No Homicidal Intention: No Insight: Fair Judgment: Impulsive Assessment & Plan Problem List: (1) Adjustment disorder with depressed mood ICD Codes: F43.21 - Adjustment disorder with depressed mood Assessment & Plan: On psychiatric evaluation today the patient reports that in the last 4 month she has being increasingly depressed related with chronic back pain. She says that yesterday she could not take it anymore, she became extremely depressed, pessimistic, helpless, hopeless, and decided to overdose to commit suicide. Now that she is in the hospital, her pain is treated she is feeling better, but, as per zainab, during the last week the patient has being quite catastrophic, pessimistic, with lack of motivation. At this right moment the patient denies suicidal ideation, she is able to contract for safety in the hospital, but high risk persist given her chronic illnesses and stressors. I will start Cymbalta 30 mg daily to help with the pain and depression. Patient will remain on the Reyes. She has decision-making capacity to agree with her surgery and treatment at this moment. Brief supportive psychotherapy, psychoeducation and insight oriented psychotherapy provided. Patient may benefit of psychiatric admission once medically cleared. We will follow-up Assessment & Plan Estimated LOS: Kameron Vázquez MD November 19, 2017 11:20
[2017-11-19] MEDS ORDERED: ESMOLOL HCL 100 MG/10 ML VIAL IV ONE (11:40)
[2017-11-19] MEDS ORDERED: ROCURONIUM INJ 50 MG/5 ML SYRINGE IV PUSH ONE (11:40)
[2017-11-19] MEDS ORDERED: GLYCOPYRROLATE 1 MG/5 ML SYRINGE IV PUSH ONE (11:40)
[2017-11-19] MEDS ORDERED: LIDOCAINE HCL 1% PF 5 ML SYRINGE OTHER ONE (11:40)
[2017-11-19] MEDS ORDERED: PROPOFOL 200 MG/20 ML AMP IV ONE (11:40)
[2017-11-19] MEDS ORDERED: PHENYLEPH/NS 1000 MCG/10 ML SYR IV ONE (11:40)
[2017-11-19] MEDS ORDERED: ONDANSETRON HCL 4 MG/2 ML VIAL IV PUSH ONE (11:40)
[2017-11-19] MEDS ORDERED: NEOSTIGMINE 5 MG/5 ML SYRINGE IV PUSH ONE (11:40)
[2017-11-19] MEDS ORDERED: DEXAMETHASONE SOD PHOS 4 MG/ML VIAL IV ONE (11:40)
[2017-11-19] MEDS ORDERED: METOPROLOL TARTRATE 5 MG/5 ML VIAL IV ONE (11:40)
[2017-11-19] MEDS ORDERED: ePHEDrine/NS 25 MG/5 ML SYRINGE IV ONE (11:40)
[2017-11-19] MEDS ORDERED: ACETAMINOPHEN 1000 MG/100 ML 100 ML IV ONE (12:58)
[2017-11-19] MEDS ORDERED: SUGAMMADEX SODIUM 200 MG/2 ML VIAL IV PUSH ONE (13:51)
[2017-11-19] MEDS ORDERED: DO NOT ADM ANY ANTICOAGULANT DRUGS PRN (14:52)
[2017-11-19] MEDS ORDERED: MIDAZOLAM HCL 2 MG/2 ML VIAL ONE (15:07)
--- NOTE | 2017-11-19 15:07 | PD.OP ---
cc: Ramses Rios MD Operative Report Date of Surgery: November 19, 2017 Preoperative Diagnosis: Thoracic T8 and lumbar L2 vertebral body compression fractures with intractable low back pain Postoperative Diagnosis: Same Procedure: Thoracic T8 and lumbar L2 kyphoplasty Anesthesia: General endotracheal by Jazmyne tello Surgeon: Dimas Lundberg MD Air Quality Consultant(s): None Operation and Findings: Following administration of a general endotracheal anesthesia patient was placed in the prone position on chest rolls and Juan table and all pressure points adequate padded. IV antibiotics were administered intravenously and the thoracolumbar area posteriorly prepped with a Betadine solution and painted and draped in the usual sterile fashion. Using AP and lateral arthroscopy guidance the stab incision sites were made at the T8 and L2 levels on the left side after infiltrating the skin was 0.5% Marc[place]. The Jamshidi needles were then passed into the vertebral body through the pedicles on both levels and with the hand-held drill a trajectory created. The drills were then removed and then the balloons were passed into the vertebral body through both sides and dilated to create a cavity and restore vertebral body height. Subsequently the balloons were removed and the cavity packed with the bone cement 5 cc at the T8 level and 4 cc at the L2 level. The guides were then removed and Steri-Strips applied at the puncture wounds along with a sterile dressing. She was then turned in spine position, extubated and taken to the recovery room. There were no intraoperative medications and all sponge and needle count was correct at the end the procedure. Estimated blood loss less than 5 cc. Dimas Lundberg MD November 19, 2017 15:07
--- NOTE | 2017-11-19 17:57 | HHI.PR ---
Subjective Remarks Patient says she is feeling all right after surgery. Denies any chest pain shortness of breath. Denies nausea or vomiting. We did discuss chronic constipation, likely secondary to narcotics. She says she has been taking laxatives, then would stop laxatives secondary to diarrhea. We will start regimen of daily MiraLAX. She also reports over a one-month history of epigastric discomfort, which is positional. This sounds to be thoracic radiculopathy Objective Vital Signs Date Time Temp Pulse Resp B/P (MAP) Pulse Ox O2 Delivery O2 Flow Rate FiO2 11/19/17 16:00 98.0 79 12 171/77 (108) 99 Nasal Cannula 2 11/19/17 16:00 97.4 65 20 173/79 (110) 100 11/19/17 15:45 84 20 171/89 (116) 99 11/19/17 15:30 86 12 178/79 (112) 100 11/19/17 15:15 89 23 179/87 (117) 99 11/19/17 15:00 93 12 174/105 (128) 100 11/19/17 14:56 97.0 99 8 179/84 (115) 98 Nasal Cannula 2 11/19/17 11:52 89 11/19/17 11:52 99 Nasal Cannula 2.00 11/19/17 10:32 98.5 83 17 171/83 (112) 99 11/19/17 10:32 98 Nasal Cannula 2 11/19/17 08:00 98.2 67 20 174/81 (112) 99 11/19/17 04:00 97.8 76 17 160/83 (108) 98 11/19/17 04:00 78 11/19/17 04:00 Nasal Cannula 2.00 11/19/17 00:00 Nasal Cannula 2.00 11/19/17 00:00 98.2 84 17 153/72 (99) 98 11/19/17 00:00 74 11/18/17 20:00 98.3 70 17 140/67 (91) 97 11/18/17 20:00 Nasal Cannula 2.00 11/18/17 20:00 80 I/O 11/18/17 11/18/17 11/18/17 11/19/17 11/19/17 11/19/17 06:59 14:59 22:59 06:59 14:59 22:59 Intake Total 240 ml 0 ml 1600 ml Output Total 0 ml 5 ml 650 ml Balance 240 ml 0 ml 1595 ml -650 ml Intake Oral 240 ml 0 ml Other 1600 ml Output Urine Total 0 ml 650 ml Estimated Blood Loss 5 ml # Voids 2 1 Result Diagram: 11/19/1792611/19/17926 Objective Remarks GENERAL: Patient sitting up in bed. Appears comfortable. SKIN: Warm and dry. HEAD: Normocephalic. EYES: No scleral icterus. No injection or drainage. NECK: Supple, trachea midline. No JVD. CARDIOVASCULAR: Regular rate and rhythm without murmurs, gallops, or rubs. RESPIRATORY: Breath sounds equal bilaterally. No accessory muscle use. GASTROINTESTINAL: Abdomen soft, non-tender, nondistended. MUSCULOSKELETAL: No cyanosis, or edema. BACK: Nontender without obvious deformity. No CVA tenderness. A/P Assessment and Plan //Acute narcotic overdose, acetaminophen overdose //Anxiety and depression. Acetaminophen level 41. = No active plan other than drug overdose. -Reyes act. = Pending psychiatric evaluation. //Chronic constipation -Likely secondary to narcotics. Will start MiraLAX daily. Continue to monitor. /Suspected thoracic abdominal radiculopathy, probably T9 = With previous kyphoplasty's //Chronic back pain. Hold off on narcotics for now. Waiting to hear back from Dr. Lundberg. //Atrial fibrillation INR subtherapeutic Hold off on anticoagulation for now = Continue rate control. //Diabetes mellitus. Diabetic diet and insulin sliding scale //Hypertension. Continue home medications. //COPD. Chronic. Continue home medications //GERD. Chronic. Continue home medications. //Hyperlipidemia. Chronic. Continue statin. //DVT prophylaxis. SCDs. Discharge Planning Suspect discharged to inpatient psychiatry tomorrow. Rashad Alvarez MD November 19, 2017 17:57
[2017-11-19] MEDS ORDERED: LISINOPRIL 10 MG TAB PO ONE (18:00)
[2017-11-20] VITALS: BP 139/64; PULSE 83; PULSE 93; RESP 16; TEMP 97.5; O2SAT 99
[2017-11-20 04:00] VITALS: BP 136/62; PULSE 73; PULSE 91; RESP 18; TEMP 97.3; O2SAT 96
[2017-11-20] MEDS ORDERED: DEXTROSE 5%-LACTATED RING INJ 1,000 ML IV SCH (04:00)
[2017-11-20 08:00] VITALS: BP 146/86; PULSE 83; PULSE 86; RESP 20; TEMP 98; O2SAT 92
[2017-11-20] MEDS: INSULIN ASPART SUPPLEMENTAL SCALE SQ SCH (08:00)
[2017-11-20 08:16] LABS: ALBUMIN 3.1 GM/DL (3.4-5.0); DIRECT BILIRUBIN ADULT 0.2 MG/DL (0.0-0.2)
[2017-11-20 08:17] LABS: INDIRECT BILIRUBIN 0.6 MG/DL (0.0-0.8); TOTAL BILIRUBIN ADULT 0.8 MG/DL (0.2-1.0)
[2017-11-20] MEDS ORDERED: MAGNESIUM HYDROXIDE SUSP 30 ML CUP PO ONE (08:30)
[2017-11-20] MEDS ORDERED: DOCUSATE SODIUM 50 MG/SENNA 8.6 MG TAB PO ONE (08:30)
[2017-11-20] MEDS: SODIUM CHLORIDE 0.9% FLUSH 10 ML FLUSH IV FLUSH SCH (09:00)
[2017-11-20] MEDS ORDERED: DULoxetine HCl DR 30 MG CAP PO SCH (09:00)
[2017-11-20] MEDS ORDERED: LISINOPRIL 10 MG TAB PO SCH (09:00)
[2017-11-20] MEDS ORDERED: POLYETHYLENE GLYCOL 17 GM PKG PO SCH (09:00)
[2017-11-20] MEDS: DOCUSATE SODIUM 50 MG/SENNA 8.6 MG TAB PO SCH (09:00)
[2017-11-20 09:13] VITALS: O2SAT 92
[2017-11-20] MEDS: PANTOPRAZOLE SOD 40 MG DELAYED RELEASE TAB PO SCH (09:53)
[2017-11-20] MEDS: ATENOLOL 50 MG TAB PO SCH (09:53)
[2017-11-20] MEDS: ATORVASTATIN 40 MG TAB PO SCH (09:53)
--- NOTE | 2017-11-20 09:53 | HHI.PR ---
Subjective Remarks Patient says he is feeling well. Denies any chest pain or shortness of breath. Reports poor appetite. Denies any pain. Denies any nausea or vomiting. She will try to eat breakfast. Objective Vital Signs Date Time Temp Pulse Resp B/P (MAP) Pulse Ox O2 Delivery O2 Flow Rate FiO2 11/20/17 09:13 92 21 11/20/17 04:00 97.3 73 18 136/62 (86) 96 11/20/17 04:00 91 11/20/17 00:00 97.5 93 16 139/64 (89) 99 11/20/17 00:00 83 11/19/17 21:15 99 21 11/19/17 20:00 99 Nasal Cannula 2.00 11/19/17 20:00 97.3 74 18 136/63 (87) 99 11/19/17 20:00 85 11/19/17 17:58 100 Nasal Cannula 2.00 11/19/17 16:00 98.0 79 12 171/77 (108) 99 Nasal Cannula 2 11/19/17 16:00 97.4 65 20 173/79 (110) 100 11/19/17 15:45 84 20 171/89 (116) 99 11/19/17 15:30 86 12 178/79 (112) 100 11/19/17 15:15 89 23 179/87 (117) 99 11/19/17 15:00 93 12 174/105 (128) 100 11/19/17 14:56 97.0 99 8 179/84 (115) 98 Nasal Cannula 2 11/19/17 11:52 89 11/19/17 11:52 99 Nasal Cannula 2.00 11/19/17 10:32 98.5 83 17 171/83 (112) 99 11/19/17 10:32 98 Nasal Cannula 2 I/O 11/19/17 11/19/17 11/19/17 11/20/17 11/20/17 11/20/17 06:59 14:59 22:59 06:59 14:59 22:59 Intake Total 0 ml 1600 ml 720 ml Output Total 0 ml 5 ml 650 ml Balance 0 ml 1595 ml -650 ml 720 ml Intake Oral 0 ml 720 ml Other 1600 ml Output Urine Total 0 ml 650 ml Estimated Blood Loss 5 ml # Voids 1 5 6 # Bowel Movements 0 Result Diagram: 11/19/1792611/19/17926 Objective Remarks GENERAL: Patient sitting up in bed. Appears comfortable. Alert and oriented 3. Exam unchanged. SKIN: Warm and dry. HEAD: Normocephalic. EYES: No scleral icterus. No injection or drainage. NECK: Supple, trachea midline. No JVD. CARDIOVASCULAR: Regular rate and rhythm without murmurs, gallops, or rubs. RESPIRATORY: Breath sounds equal bilaterally. No accessory muscle use. GASTROINTESTINAL: Abdomen soft, non-tender, nondistended. MUSCULOSKELETAL: No cyanosis, or edema. BACK: Nontender without obvious deformity. No CVA tenderness. A/P Assessment and Plan //Acute narcotic overdose, acetaminophen overdose //Anxiety and depression. Acetaminophen level 41. = No active plan other than drug overdose. -Reyes act. = Psychiatry recommends inpatient psychiatric admission. LFTs are stable. //Chronic constipation -Likely secondary to narcotics. Will start MiraLAX daily. Continue to monitor. = Continue MiraLAX daily. Status post laxatives. Await return of bowel function. /Suspected thoracic abdominal radiculopathy, probably T9 = With previous kyphoplasty's //Poor appetite. Possibly secondary to thoracic abdominal radiculopathy. Benefit from laxative regimen. Will start Megace. //Atrial fibrillation INR subtherapeutic Hold off on anticoagulation for now = Continue rate control. = Restart warfarin to trend up. //Diabetes mellitus. Diabetic diet and insulin sliding scale //Hypertension. Continue home medications. //COPD. Chronic. Continue home medications //GERD. Chronic. Continue home medications. //Hyperlipidemia. Chronic. Continue statin. //DVT prophylaxis. SCDs. Discharge Planning Order discharge inpatient psychiatry. Rashad Alvarez MD November 20, 2017 09:52
[2017-11-20] MEDS ORDERED: MEGE40TA PO (09:57)
[2017-11-20] MEDS: BUDESONIDE-FORMOTEROL 80/4.5 MCG INHALER INH SCH (09:57)
[2017-11-20] MEDS ORDERED: PERI PO (09:57)
[2017-11-20] MEDS ORDERED: POLY17S PO (09:57)
[2017-11-20] MEDS ORDERED: MEGESTROL ACETATE 40 MG TAB PO SCH (10:00)
--- NOTE | 2017-11-20 10:04 | HHI.DS ---
Discharge Summary Admission Date November 18, 2017 at 10:54 Discharge Date: November 20, 2017 Admitting Diagnosis Intentional opiate overdose/Reyes act (1) Intentional opiate overdose ICD Code: T40.602A - Poisoning by unspecified narcotics, intentional self-harm , initial encounter Status: Acute (2) DM2 (diabetes mellitus, type 2) ICD Code: E11.9 - DM2 (diabetes mellitus, type 2) Status: Acute Procedures Thoracic T8 and lumbar L2 kyphoplasty. Please see report. Brief History - From Admission 82-year-old female with a history of depression, atrial fibrillation on Coumadin , chronic back pain, who is scheduled to undergo neurosurgery tomorrow who presents with intentional overdose of oxycodone/acetaminophen. She took a handful of oxycodone/acetaminophen 5 mg tablets this morning around 5 AM. She reports previously feeling at baseline. She currently reports no adverse effects other than her pain is gone. She denies any chest pain, shortness of breath, nausea, vomiting. She does report chronic constipation with postprandial epigastric fullness, and is due to see GI as outpatient. Denies any fevers, chills CBC/BMP: 11/19/17 0927 11/19/17 0927 Significant Findings Laboratory Tests Test 11/18/17 08:50 11/18/17 08:53 11/18/17 11:20 11/19/17 09:27 Neutrophils (%) (Auto) 74.1 % (16.0-70.0) Monocytes (%) (Auto) 8.1 % (0.0-8.0) 9.2 % (0.0-8.0) Acanthocytes OCC (NORMAL) Random Glucose 166 MG/DL (74-106) Estimat Glomerular Filtration Rate 86 ML/MIN (>89) Salicylates Level LESS THAN 1.7 MG/DL Acetaminophen Level 41.7 MCG/ML (10.0-30.0) Urine Protein 30 mg/dL (NEG-TRACE) Prothrombin Time 12.4 SEC (9.8-11.6) Activated Partial Thromboplast Time 21.9 SEC (24.3-30.1) Red Blood Count 3.89 MIL/MM3 (4.00-5.30) Total Protein 6.2 GM/DL (6.4-8.2) Albumin 3.2 GM/DL (3.4-5.0) Test 11/20/17 06:06 Total Protein 6.0 GM/DL (6.4-8.2) Albumin 3.1 GM/DL (3.4-5.0) Imaging Last Impressions Thoracolumbar Spine 11/19/17 0000 Signed Impressions: CONCLUSION: Bone cement identified in multiple vertebral bodies characteristic of vertebral body augmentation. Stable alignment Hospital Course She was found to have Tylenol level of 41, however LFTs remained within normal limits during hospitalization. Given timing of Tylenol level 4 hours after overdose, this is deemed not to be a toxic dose. Given that patient actually had intended to commit suicide, psychiatry was consulted and recommends inpatient psychiatric admission. Neurosurgery went ahead and performed thoracic T8 and lumbar L2 kyphoplasty. Patient recovering well this procedure, not requiring pain medication. Patient does have chronic constipation and decreased appetite. She will be started on laxative regimen, Megace for appetite stimulation. It is suspected the patient has thoracic abdominal radiculopathy. Warfarin had been held preoperatively, and will be restarted for INR to trend up. For problem based summary from most recent progress note, please see below. //Acute narcotic overdose, acetaminophen overdose //Anxiety and depression. Acetaminophen level 41. = No active plan other than drug overdose. -Reyes act. = Psychiatry recommends inpatient psychiatric admission. LFTs are stable. //Chronic constipation -Likely secondary to narcotics. Will start MiraLAX daily. Continue to monitor. = Continue MiraLAX daily. Status post laxatives. Await return of bowel function. /Suspected thoracic abdominal radiculopathy, probably T9 = With previous kyphoplasty's //Poor appetite. Possibly secondary to thoracic abdominal radiculopathy. Benefit from laxative regimen. Will start Megace. //Atrial fibrillation INR subtherapeutic Hold off on anticoagulation for now = Continue rate control. = Restart warfarin to trend up. //Diabetes mellitus. Diabetic diet and insulin sliding scale //Hypertension. Continue home medications. //COPD. Chronic. Continue home medications //GERD. Chronic. Continue home medications. //Hyperlipidemia. Chronic. Continue statin. //DVT prophylaxis. SCDs. Discharge Planning Order discharge inpatient psychiatry. Pt Condition on Discharge: Good Discharge Disposition: Disc to Psych Care Fac Discharge Time: > 30 minutes Discharge Instructions DIET: Follow Instructions for: Diabetic Diet Activities you can perform: Regular-No Restrictions Follow up Referrals: Neurosurgery - 1 Week with Dimas Lundberg MD PCP Follow-up - 1 Week with Ramses Rios MD Psychiatry Adult New Medications: Megestrol (Megestrol) 40 Mg Tab 40 MG PO Q12HR for appetite for 30 Days, TAB Polyethylene Glycol 3350 Powder (Polyethylene Glycol 3350 Powder) 17 Gram Pow 17 GM PO DAILY for Constipation for 30 Days, BOTTLE Sennosides-Docusate Sodium (Gnp Senna Plus 8.6-50 mg) 8.6 Mg-50 Mg Tab 1 TAB PO BID for Constipation for 3 Days, #6 TAB Continued Medications: Atenolol (Atenolol) 50 Mg Tab 50 MG PO BID for Blood Pressure Management, #14 TAB 0 Refills Atorvastatin (Atorvastatin) 40 Mg Tab 40 MG PO DAILY for Cholesterol Management, #30 TAB 0 Refills Budesonide-Formoterol Inh (Symbicort Inh) 80-4.5 Mcg/Act Aero 2 PUFF INH Q12HR for Asthma Management, #1 INHALER 0 Refills Cholecalciferol (Vitamin D-1000) 1,000 Unit Tab 1000 UNITS PO DAILY for Nutritional Supplement, #1 BOTTLE 0 Refills Cyanocobalamin (Vitamin B-12) (Vitamin B-12) 1,000 Mcg/Ml Drops 1 ML SQ MONTHLY Glipizide (Glipizide) 5 Mg Tab 2.5 MG PO BIDAC for Blood Sugar Management, #60 TAB 0 Refills Take 30 minutes before a meal Ipratropium Nasal (Ipratropium Nasal) 0.06% [place] 2 SPRAY EACH NARE DAILY, #1 BOTTLE 0 Refills Omeprazole (Omeprazole) 40 Mg Cap 40 MG PO DAILY, #30 CAP 0 Refills Warfarin (Warfarin) 2 Mg Tab 2 MG PO TUTHSASU for Blood Clot Prevention, #30 TAB 0 Refills Discontinued Medications: Fenofibrate (Fenofibrate) 150 Mg Cap 150 MG PO DAILY, #30 CAP 0 Refills Oxycodone (Oxycodone) 5 Mg Cap 5 MG PO Q4H PRN for PAIN, CAP 0 Refills Sennosides/Docusate Sodium (Colace 2-in-1 Tablet) 8.6 Mg-50 Mg Tablet 2 TAB PO DAILY Rashad Alvarez MD November 20, 2017 10:04
--- NOTE | 2017-11-20 16:13 | RADRPT ---
EXAM DATE: 11/20/2017 2:29 PM EDT AGE/SEX: 82 years / Female INDICATIONS: T8 and L2 kyphoplasty, back pain. CLINICAL DATA: This is the patient's initial encounter. Patient reports that signs and symptoms have been present for 1 day and indicates a pain score of Nonresponsive. MEDICAL/SURGICAL HISTORY: Osteoarthritis. Thoracic spine fractures Kyphoplasty. COMPARISON: No prior [facility] exams available for comparison. FINDINGS: AP and lateral views were obtained of the midthoracic to upper lumbar spine. Bone cement is identifie d in several vertebral bodies characteristic of vertebral body augmentation. CONCLUSION: Bone cement identified in multiple vertebral bodies characteristic of vertebral body augmentation. Stable alignment Electronically signed by: Michael Goodson MD 11/20/2017 4:12 PM EDT
== END 2017-11-20 11:41 | DRG 908 ==
LOC: NEPE 08:25 → NEDA 10:54 → N04A 12:27
PROVIDERS: ADMIT Internal Medicine; ATTEND Internal Medicine
PROC: 0PU43JZ Supplement Thoracic Vertebra with Synthetic Substitute, Percutaneous Approach (ICD-10-PCS; 2017-11-19)
PROC: 0QS03ZZ Reposition Lumbar Vertebra, Percutaneous Approach (ICD-10-PCS; 2017-11-19)
PROC: 0QU03JZ Supplement Lumbar Vertebra with Synthetic Substitute, Percutaneous Approach (ICD-10-PCS; 2017-11-19)
PROC: 0PS43ZZ Reposition Thoracic Vertebra, Percutaneous Approach (ICD-10-PCS; principal; 2017-11-19 13:05)
DX: T40.602A Poisoning by unspecified narcotics, intentional self-harm, initial encounter (principal); M48.54XA Collapsed vertebra, not elsewhere classified, thoracic region, initial encounter for fracture; M48.56XA Collapsed vertebra, not elsewhere classified, lumbar region, initial encounter for fracture; I48.91 Unspecified atrial fibrillation; Z79.01 Long term (current) use of anticoagulants; J44.9 Chronic obstructive pulmonary disease, unspecified; T39.1X2A Poisoning by 4-Aminophenol derivatives, intentional self-harm, initial encounter; F43.21 Adjustment disorder with depressed mood; M54.14 Radiculopathy, thoracic region; G89.29 Other chronic pain; M54.5 Low back pain; K59.09 Other constipation; I10 Essential (primary) hypertension; E78.5 Hyperlipidemia, unspecified; K21.9 Gastro-esophageal reflux disease without esophagitis; G47.30 Sleep apnea, unspecified; E11.9 Type 2 diabetes mellitus without complications; Z79.84 Long term (current) use of oral hypoglycemic drugs; Z85.828 Personal history of other malignant neoplasm of skin; Z96.651 Presence of right artificial knee joint
CPT/HCPCS: 72070; 80053; 80076; 80307; 81001; 82948; 84443; 85025; 85610; 85730; 93005; J0131; J1100; J1815; J2250; J2370; J2405; J2710; J3010; J3370; J7121

== ENCOUNTER 2017-11-20 12:35 | Inpatient (IN) | payer MEDICARE, OTHER ==
[~2017-11-20 12:35] MED LIST changes: +MEGE40TA PO; +OXYC1CAP PO; +PERI PO; +POLY17S PO
[2017-11-20] MEDS: ATENOLOL 50 MG TAB PO SCH ×2 (13:15→20:46)
[2017-11-20] MEDS ORDERED: LORazepam 2 MG/ML VIAL IM PRN ×2 (13:15)
[2017-11-20] MEDS ORDERED: ALUMINUM/MAGNESIUM/SIMETH 30 ML CUP PO PRN (13:15)
[2017-11-20] MEDS: ATORVASTATIN 40 MG TAB PO SCH (13:15)
[2017-11-20] MEDS ORDERED: LORazepam 0.5 MG TAB PO PRN (13:15)
[2017-11-20] MEDS ORDERED: LORazepam 1 MG TAB PO PRN (13:15)
[2017-11-20] MEDS ORDERED: MAGNESIUM HYDROXIDE SUSP 30 ML CUP PO PRN (13:15)
[2017-11-20] MEDS ORDERED: PILL SPLITTER OTHER PRN (13:30)
[2017-11-20 13:57] VITALS: BP 165/73; PULSE 87; RESP 18; TEMP 97.8
[2017-11-20] MEDS ORDERED: CYANOCOBALAMIN 1000 MCG/ML VIAL SQ SCH (15:00)
[2017-11-20] MEDS: glipiZIDE 5 MG TAB PO SCH (16:00)
[2017-11-20 18:00] VITALS: BP 145/67; PULSE 94; RESP 17; TEMP 97.9; O2SAT 98
[2017-11-20] MEDS: BUDESONIDE-FORMOTEROL 80/4.5 MCG INHALER INH SCH (20:46)
[2017-11-20] MEDS: MEGESTROL ACETATE 40 MG TAB PO SCH (20:47)
[2017-11-20] MEDS: ACETAMINOPHEN 325 MG TAB PO PRN (20:47)
[2017-11-21 05:26] VITALS: BP 141/65; PULSE 66; RESP 16; TEMP 98; O2SAT 97
[2017-11-21] MEDS: glipiZIDE 5 MG TAB PO SCH ×2 (06:11→16:00)
[2017-11-21] MEDS ORDERED: NICOTINE 21 MG/24 HR PATCH T-DERMAL SCH (09:00)
[2017-11-21] MEDS: DULoxetine HCl DR 30 MG CAP PO SCH ×2 (09:00→12:22)
[2017-11-21] MEDS: BUDESONIDE-FORMOTEROL 80/4.5 MCG INHALER INH SCH ×2 (09:00→23:03)
[2017-11-21] MEDS: ATENOLOL 50 MG TAB PO SCH ×2 (09:00→23:03)
[2017-11-21] MEDS: MEGESTROL ACETATE 40 MG TAB PO SCH ×2 (09:00→23:03)
[2017-11-21] MEDS: ATORVASTATIN 40 MG TAB PO SCH (09:00)
[2017-11-21 09:24] LABS: BICARBONATE 31.4 MEQ/L (21.0-32.0); BLOOD UREA NITROGEN 19 MG/DL (7-18); CALCIUM 8.9 MG/DL (8.5-10.1); CHLORIDE 103 MEQ/L (98-107); CHOLESTEROL 125 MG/DL (120-200); GLOMERULAR FILTRATION RATE 80 ML/MIN (>89); GLUCOSE,RANDOM 85 MG/DL (74-106); SODIUM (NA) 141 MEQ/L (136-145); TRIGLYCERIDES 95 MG/DL (42-150)
[2017-11-21 09:27] LABS: CHOLESTEROL/ HDL RATIO 2.09 RATIO; HDL CHOLESTEROL 59.6 MG/DL (40.0-60.0); LDL CHOLESTEROL 46 MG/DL (0-99)
--- NOTE | 2017-11-21 11:13 | HHI.HP ---
Provisional Diagnosis Admission Date November 20, 2017 at 12:35 [place] I. Major depressive disorder, single episode, without psychosis Certification of Person's Competence To Provide Express and Informed Consent I have personally examined Bailey Oglesby , a person being served at [facility] on, November 21, 2017 11:06. Express and informed consent means consent voluntarily given in writing, by a competent person, after sufficient explanation and disclosure of the subject matter involved to enable the person to make a knowing and willful decision without any element of force, fraud, deceit, duress, or other form of constraint or coercion. This person is 18 years of age or older, is not now known to be incompetent to consent to treatment with a guardian advocate, and does not have a health care surrogate or proxy currently making medical treatment decisions. I have found this person to be one of the following: [] Competent to provide express and informed consent, as defined above, for voluntary admission to this facility and is competent to provide express and informed consent for treatment. He/she has the consistent capacity to make well reasoned, willful, and knowing decisions concerning his or her medical or mental health treatment. The person fully and consistently understands the purpose of the admission for examination/placement and is fully capable of personally exercising all rights assured under [place] [] Incompetent to provide express and informed consent to voluntary admission, and this is incompetent to provide express and informed consent to treatment. The person must be transferred to involuntary status and a petition for a guardian advocate filed with the Circuit Court. [x] Refusing to provide express and informed consent to voluntary admission but is competent to provide express and informed consent for treatment. The person must be discharged or transferred to involuntary status. Form shall be completed within 24 hours of a person's arrival at the receiving facility and filed in the clinical record of each person: 1. Admitted on a voluntary basis 2. Permitted to provide express and informed consent to his/her own treatment 3. Allowed to transfer from involuntary to voluntary status 4. Prior to permitting a person to consent to his or her own treatment after having been previously found incompetent to consent to treatment. History of Present Illness Capacity: Has Capacity HPI 11/18/2017 The patient is a 82-year-old woman, domiciled alone in [place], never , no kids, with previous psychiatric history of depression, no previous suicidal attempts, no previous psychiatric hospitalizations, with medical history of atrial fibrillation on Coumadin, chronic back pain, who is scheduled to undergo neurosurgery today who presented yesterday with intentional overdose of oxycodone/acetaminophen. She took a handful of oxycodone/acetaminophen 5 mg tablets this morning around 5 AM. She reports previously feeling at baseline. She currently reports no adverse effects other than her pain is gone. Consulted to psychiatry to address suicidal intent. EMR reviewed. Case discussed with nursing charge. I also got collateral information from her niece Dia Wesley. Her niece reports that the patient has been depressed the last weeks due to pain. She says that she was kind of surprised when she knew that she tried to commit suicide. She says that she does not have any knowledge of the patient having any previous psychiatric history other than depression treated as an outpatient. She states that the patient in the last weeks has been quite pessimistic, catastrophic and seeing everything "with a lot of pessimism". on psychiatric evaluation the patient is calm, cooperative, pleasant. Patient reports that she tried to commit suicide because she was in excruciating pain and she could not take it anymore. Patient reports that she has been in a notable pain for 4 months now "and I do not think I can take it anymore". She says that she is hopeful the surgery will help her "but I have no very sure that I really had 2 surgeries before". The patient reports that she feels very depressed "but, at the same time I want to get better and I want to have anything". At this moment she denies suicidal enemas ideation, she denies visual and auditory hallucinations. The patient was able to contract for safety during this hospitalization, she also agrees with taking Cymbalta for depression and to help with the pain. The patient is fully oriented 3, no attention deficit, no fluctuation of consciousness at the moment. She is logical, coherent and relevant. She denies the use of illegal drugs and alcohol. 11/21/2017 the patient was seen today for psychiatric evaluation in 2600 unit. The patient is found in her bed. She is alert and awake, but seems to be quite distant superficially cooperative. The patient reports that she continues to be very depressed. She says that she does not have the energy to get out walk. Patient reports that she does not seem to have a clear reason "to do things and get better', even though she says that she will try medications to try to get out of depression. Reports to be very pessimistic, anhedonic, helpless, hopeless, worthless, "and this persistent pain does not help anything". She states that the major source of her depression is the pain. The pain is better now, 5/10, which he is anticipating that is going to be worse. The patient is fully oriented 3. She contracted for safety in the unit. Review of Systems Constitutional: DENIES: Diaphoretic episodes, Fatigue, Fever, Weight gain, Weight loss, Chills, Dizziness, Change in appetite, Night Sweats Endocrine: DENIES: Abnorml menstrual pattern, Heat/cold intolerance, Polydipsia , Polyuria, Polyphagia Eyes: DENIES: Blurred vision, Diplopia, Eye inflammation, Eye pain, Vision loss , Photosensitivity, Double Vision Ears, nose, mouth, throat: DENIES: Tinnitus, Hearing loss, Vertigo, Nasal discharge, Oral lesions, Throat pain, Hoarseness, Ear Pain, Running Nose, Epistaxis, Sinus Pain, Toothache, Odynophagia Respiratory: DENIES: Apneas, Cough, Snoring, Wheezing, Hemoptysis, Sputum production, Shortness of breath Cardiovascular: DENIES: Chest pain, Palpitations, Syncope, Dyspnea on Exertion , PND, Lower Extremity Edema, Orthopnea, Claudication Gastrointestinal: DENIES: Abdominal pain, Black stools, Bloody stools, Constipation, Diarrhea, Nausea, Vomiting, Difficulty Swallowing, Anorexia Genitourinary: DENIES: Abnormal vaginal bleeding, Dysmenorrhea, Dyspareunia, Sexual dysfunction, Urinary frequency, Urinary incontinence, Urgency, Hematuria , Dysuria, Nocturia, Vaginal discharge Musculoskeletal: COMPLAINS OF: Back pain, Neck pain, DENIES: Joint pain, Muscle aches, Stiffness, Joint Swelling Integumentary: DENIES: Abnormal pigmentation, Pruritus, Rash, Nail changes, Breast masses, Breast skin changes, Nipple discharge Hematologic/lymphatic: DENIES: Bruising, Lymphadenopathy Immunologic/allergic: DENIES: Eczema, Urticaria Neurologic: DENIES: Abnormal gait, Headache, Localized weakness, Paresthesias, Seizures, Speech Problems, Tremor, Poor Balance Psychiatric: COMPLAINS OF: Mood changes, Depression, Suicidal Ideation Substance Abuse History Drugs/Alcohol past 12 months Patient denies the use of illegal drugs or alcohol Past Family Social History Coded Allergies: No Known Allergies (Verified Allergy, Unknown, 11/18/17) Active Scripts Megestrol (Megestrol) 40 Mg Tab, 40 MG PO Q12HR for appetite for 30 Days, TAB Prov:Rashad Alvarez MD 11/20/17 Polyethylene Glycol 3350 Powder (Polyethylene Glycol 3350 Powder) 17 Gram Pow, 17 GM PO DAILY for Constipation for 30 Days, BOTTLE Prov:Rashad Alvarez MD 11/20/17 Sennosides-Docusate Sodium (Gnp Senna Plus 8.6-50 mg) 8.6 Mg-50 Mg Tab, 1 TAB PO BID for Constipation for 3 Days, #6 TAB Prov:Rashad Alvarez MD 11/20/17 Reported Medications Warfarin (Warfarin) 2 Mg Tab, 2 MG PO TUTHSASU for Blood Clot Prevention, #30 TAB 0 Refills 11/07/17 Cholecalciferol (Vitamin D-1000) 1,000 Unit Tab, 1000 UNITS PO DAILY for Nutritional Supplement, #1 BOTTLE 0 Refills 08/14/17 Cyanocobalamin (Vitamin B-12) (Vitamin B-12) 1,000 Mcg/Ml Drops, 1 ML SQ MONTHLY 08/14/17 Budesonide-Formoterol Inh (Symbicort Inh) 80-4.5 Mcg/Act Aero, 2 PUFF INH Q12HR for Asthma Management, #1 INHALER 0 Refills 07/24/17 Ipratropium Nasal (Ipratropium Nasal) 0.06% [place], 2 SPRAY EACH NARE DAILY, #1 BOTTLE 0 Refills 07/24/17 Atorvastatin (Atorvastatin) 40 Mg Tab, 40 MG PO DAILY for Cholesterol Management , #30 TAB 0 Refills 07/24/17 Glipizide (Glipizide) 5 Mg Tab, 2.5 MG PO BIDAC for Blood Sugar Management, #60 TAB 0 Refills Take 30 minutes before a meal 07/24/17 Omeprazole (Omeprazole) 40 Mg Cap, 40 MG PO DAILY, #30 CAP 0 Refills 07/24/17 Atenolol (Atenolol) 50 Mg Tab, 50 MG PO BID for Blood Pressure Management, #14 TAB 0 Refills 07/24/17 Discontinued Reported Medications Oxycodone (Oxycodone) 5 Mg Cap, 5 MG PO Q4H Y for PAIN, CAP 0 Refills 11/18/17 Sennosides/Docusate Sodium (Colace 2-in-1 Tablet) 8.6 Mg-50 Mg Tablet, 2 TAB PO DAILY 11/17/17 Fenofibrate (Fenofibrate) 150 Mg Cap, 150 MG PO DAILY, #30 CAP 0 Refills 07/24/17 Warfarin (Warfarin) 4 Mg Tab, 4 MG PO MoFr for Blood Clot Prevention, #30 TAB 0 Refills 11/07/17 Lisinopril-Hctz (Lisinopril-Hctz) 10-12.5 Mg Tab, 1 TAB PO DAILY for Blood Pressure Management, #30 TAB 0 Refills 11/07/17 Lisinopril (Lisinopril) 10 Mg Tab, 10 MG PO DAILY, #30 TAB 0 Refills 07/24/17 Current Medications Medications (Trade) Dose Ordered Sig/Ritchie Route Start Time Stop Time Status Last Admin (Tenormin) 50 mg BID PO 11/20/17 13:15 11/20/17 20:46 (Lipitor) 40 mg DAILY PO 11/20/17 13:15 (Symbicort 80-4.5 Mcg Inh) 2 puff Q12HR INH 11/20/17 21:00 11/20/17 20:46 (Glucotrol) 2.5 mg BIDAC PO 11/20/17 16:00 11/21/17 06:11 (Megace) 40 mg Q12HR PO 11/20/17 21:00 11/20/17 20:47 (Vitamin B12 Inj) 1,000 mcg Q30D SQ 11/20/17 15:00 (Ativan) 0.5 mg Q12H PRN PO 11/20/17 13:15 (Ativan Inj) 0.5 mg Q12H PRN IM 11/20/17 13:15 (Tylenol) 650 mg Q4H PRN PO 11/20/17 13:15 11/20/17 20:47 (Milk Of Magnesia Liq) 30 ml DAILY PRN PO 11/20/17 13:15 (Mag-Al Plus Susp Liq) 30 ml Q6H PRN PO 11/20/17 13:15 (Pill Splitter) 1 ea UNSCH PRN OTHER 11/20/17 13:30 (Edgar nOeal) 30 mg DAILY PO 11/21/17 09:00 Family Psych History No family psychiatric history Social History Patient was born and raised in [place], she lives in [place] by herself, never been , no kids, she has good family support of her sister and niece , unemployed, supported by [employer], 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 2) Verbal communication Physical Exam No tremors, no EPS, no withdrawal symptoms, mild psychomotor retardation. Vital Signs Vital Signs Date Time Temp Pulse Resp B/P (MAP) Pulse Ox O2 Delivery O2 Flow Rate FiO2 11/21/17 05:26 98.0 66 16 141/65 (90) 97 Lab Results Test 11/21/17 08:12 Blood Urea Nitrogen 19 MG/DL Creatinine 0.70 MG/DL Random Glucose 85 MG/DL Calcium Level 8.9 MG/DL Sodium Level 141 MEQ/L Potassium Level 3.7 MEQ/L Chloride Level 103 MEQ/L Carbon Dioxide Level 31.4 MEQ/L Anion Gap 7 MEQ/L Estimat Glomerular Filtration Rate 80 ML/MIN Triglycerides Level 95 MG/DL Cholesterol Level 125 MG/DL LDL Cholesterol 46 MG/DL HDL Cholesterol 59.6 MG/DL Cholesterol/HDL Ratio 2.09 RATIO Mental Status Examination Appearance: Appropriate Consciousness: Alert Orientation: x4 Motor Activity: Normal gait Speech: Unremarkable Language: Adequate Fund of Knowledge: Adequate Attention and Concentration: Adequate Memory: Unremarkable Mood: Sad Affect: Sad Thought Process & Associations: Intact Thought Content: Appropriate Hallucination Type: None Delusion Type: None Suicidal Ideation: No Suicidal Plan: No Suicidal Intention: No Homicidal Ideation: No Homicidal Plan: No Homicidal Intention: No Insight: Poor Judgment: Poor Assessment & Plan Problem List: (1) Major depressive disorder, single episode ICD Codes: F32.9 - Major depressive disorder, single episode, unspecified Assessment & Plan: On psychiatric evaluation today the patient reports that in the last 4 month she has being increasingly depressed related with chronic back pain. She says that yesterday she could not take it anymore, she became extremely depressed, pessimistic, helpless, hopeless, and decided to overdose to commit suicide. Now that she is in the hospital, her pain is treated she is feeling better, but, as per niece, during the last week the patient has being quite catastrophic, pessimistic, with lack of motivation. At this right moment the patient denies suicidal ideation, she is able to contract for safety in the hospital, but high risk persist given her chronic illnesses and stressors. I will start Cymbalta 30 mg daily to help with the pain and depression. Brief supportive psychotherapy, psychoeducation and insight oriented psychotherapy provided. Patient may benefit of psychiatric admission for stabilization and safety. animal care service worker intervention for psychosocial assessment, individual and group therapy, to coordinate safe discharge. Will consult psychiatry for second opinion, medicine to help with underlying medical conditions. Assessment & Plan Estimated LOS: days Kameron Mullins MD November 21, 2017 11:13
[2017-11-21 13:32] LABS: HEMOGLOBIN A1C 6.6 % (4.3-6.0)
--- NOTE | 2017-11-21 14:16 | PD.CONS ---
[facility] Reason for Consult Assist with medical management Primary Care Physician Unknown Diagnoses: History of Present Illness Patient is an 82-year-old female with history of depression, atrial fibrillation , D, chronic back pain who initially came into the hospital scheduled to undergo neurosurgery for kyphoplasty but intentionally overdose on oxycodone/ acetaminophen. She has now admitted to inpatient psychiatry unit for further evaluation. Consulted for assistance with medical management. Patient states she was in severe pain right before she came to the hospital that she took all her medications to at all her pain. States it did not affect her except her pain was better. During her inpatient hospitalization her LFTs was within normal limits. Neurosurgery performed thoracic T8 and loop are L2 kyphoplasty 11/19/17. Patient has some paranoia requesting to be escorted to see her niece. Very demanding. Stating she doesn't trust people in the unit. Complaints of back pain states she has kyphoplasty 2, but unable to elaborate. She also complains of white same clothes, having to shave herself. Otherwise , denies SOB/ dyspnea. Denies chest pain, palpitations, headaches, dizziness. Denies fevers, chills, n/v/d. Denies dysuria. Review of Systems Constitutional: DENIES: Fever, Chills, Change in appetite Eyes: DENIES: Blurred vision, Eye pain Except as stated in HPI: all other systems reviewed are Neg Past Family Social History Allergies: Coded Allergies: No Known Allergies (Verified Allergy, Unknown, 11/18/17) Past Medical History Atrial fibrillation on Coumadin Hypertension Anxiety and depression History of skin cancer Hyperlipidemia COPD GERD Sleep apnea Past Surgical History Appendectomy Right knee replacement History of kyphoplasty Hernia repair Reported Medications Reported Meds & Active Scripts Active Megestrol (Megestrol Acetate) 40 Mg Tab 40 Mg PO Q12HR 30 Days Polyethylene Glycol 3350 Powder (Polyethylene Glycol) 17 Gram Pow 17 Gm PO DAILY 30 Days Gnp Senna Plus 8.6-50 mg (Sennosides-Docusate Sodium) 8.6 Mg-50 Mg Tab 1 Tab PO BID 3 Days Reported Warfarin 2 Mg Tab 2 Mg PO TUTHSASU Vitamin D-1000 (Cholecalciferol) 1,000 Unit Tab 1,000 Units PO DAILY Vitamin B-12 (Cyanocobalamin (Vitamin B-12)) 1,000 Mcg/Ml Drops 1 Ml SQ MONTHLY Symbicort Inh (Budesonide/Formoterol Fumarate) 80-4.5 Mcg/Act Aero 2 Puff INH Q12HR Ipratropium Nasal 0.06% [place] 2 [place] EACH NARE DAILY Atorvastatin (Atorvastatin Calcium) 40 Mg Tab 40 Mg PO DAILY Glipizide 5 Mg Tab 2.5 Mg PO BIDAC Take 30 minutes before a meal Omeprazole 40 Mg Cap 40 Mg PO DAILY Atenolol 50 Mg Tab 50 Mg PO BID Active Ordered Medications Current Medications Medications (Trade) Dose Ordered Sig/Ritchie Route Start Time Stop Time Status Last Admin (Tenormin) 50 mg BID PO 11/20/17 13:15 11/21/17 09:00 (Lipitor) 40 mg DAILY PO 11/20/17 13:15 11/21/17 09:00 (Symbicort 80-4.5 Mcg Inh) 2 puff Q12HR INH 11/20/17 21:00 11/21/17 09:00 (Glucotrol) 2.5 mg BIDAC PO 11/20/17 16:00 11/21/17 06:11 (Megace) 40 mg Q12HR PO 11/20/17 21:00 11/21/17 09:00 (Vitamin B12 Inj) 1,000 mcg Q30D SQ 11/20/17 15:00 (Ativan) 0.5 mg Q12H PRN PO 11/20/17 13:15 (Ativan Inj) 0.5 mg Q12H PRN IM 11/20/17 13:15 (Tylenol) 650 mg Q4H PRN PO 11/20/17 13:15 11/20/17 20:47 (Milk Of Magnesia Liq) 30 ml DAILY PRN PO 11/20/17 13:15 (Mag-Al Plus Susp Liq) 30 ml Q6H PRN PO 11/20/17 13:15 (Pill Splitter) 1 ea UNSCH PRN OTHER 11/20/17 13:30 (Cymbalta Dr) 30 mg DAILY PO 11/21/17 09:00 11/21/17 12:22 (Coumadin) 2 mg DAILY@16 PO 11/21/17 16:00 (Vitamin D3) 1,000 units DAILY PO 11/22/17 09:00 (Miralax) 17 gm DAILY PO 11/22/17 09:00 (Stephanie-Colace) 1 tab BID PO 11/21/17 21:00 (Protonix) 40 mg DAILY PO 11/21/17 14:15 Family History Father of a heart attack at an early age Social History Denies alcohol use, used to drink using Denies tobacco use, states he is to smoke years ago approximately 20-25 years Denies illicit drug use Physical Exam Vital Signs Vital Signs Date Time Temp Pulse Resp B/P (MAP) Pulse Ox O2 Delivery O2 Flow Rate FiO2 11/21/17 05:26 98.0 66 16 141/65 (90) 97 11/20/17 18:00 97.9 94 17 145/67 (93) 98 Physical Exam GENERAL: This is a well-nourished, well-developed patient, in no apparent distress. SKIN: Cool and dry. HEAD: Normocephalic. EYES: Pupils equal round and reactive. Extraocular motions intact. No scleral icterus. No injection or drainage. ENT: Nose without bleeding. Throat without erythema. Uvula midline. Airway patent. NECK: Trachea midline. CARDIOVASCULAR: Regular rate and rhythm without murmurs, gallops, or rubs. RESPIRATORY: Clear to auscultation. Breath sounds equal bilaterally. No wheezes , rales, or rhonchi. GASTROINTESTINAL: Abdomen soft, non-tender, nondistended. Bowel sounds active 4. MUSCULOSKELETAL: Extremities without clubbing, cyanosis, or edema. Kyphosis noted. NEUROLOGICAL: Awake and alert. Cranial nerves II through XII intact. Motor and sensory grossly within normal limits.Normal speech. Laboratory Laboratory Tests Test 11/21/17 08:12 Blood Urea Nitrogen 19 Creatinine 0.70 Random Glucose 85 Calcium Level 8.9 Sodium Level 141 Potassium Level 3.7 Chloride Level 103 Carbon Dioxide Level 31.4 Anion Gap 7 Estimat Glomerular Filtration Rate 80 Triglycerides Level 95 Cholesterol Level 125 LDL Cholesterol 46 HDL Cholesterol 59.6 Cholesterol/HDL Ratio 2.09 Result Diagram: 11/21/17 0812 Assessment and Plan Assessment and Plan Patient is an 82-year-old female with history of depression, atrial fibrillation , D, chronic back pain who initially came into the hospital scheduled to undergo neurosurgery for kyphoplasty but intentionally overdose on oxycodone/ acetaminophen. She has now admitted to inpatient psychiatry unit for further evaluation. Consulted for assistance with medical management. Depression, suicidal ideation -Managed by psychiatry team Chronic back pain Status post kyphoplasty -Pain management, will give [place] 5/325mg. -We will not provide pain medications on DC. -PT eval and treat A. fib, chronic HTN HLD -Rate control -Continue Coumadin. Check INR -Continue atenolol 50 mg twice daily, atorvastatin 40 mg daily -Monitor trend DM 2, not on insulin, no acute manifestations -Hemoglobin A1c 6.6 -Continue glipizide for now Metformin 500 mg twice daily Chronic constipation Poor p.o. intake -Possibly secondary to narcotic use -MiraLAX daily, Megace daily, senna plus COPD, not in exacerbation -Continue Symbicort daily, ipratropium nasal spray DVT prop Coumadin Code Status Full Code Discussed Condition With Patient, nursing Melba Torrez November 21, 2017 14:16
[2017-11-21] MEDS ORDERED: DEXTROSE 50% IN WATER 50 ML VIAL(D50) IV PUSH PRN (15:30)
[2017-11-21] MEDS ORDERED: GLUCAGON 1 MG/ML VIAL OTHER PRN (15:30)
[2017-11-21] MEDS: PANTOPRAZOLE SOD 40 MG DELAYED RELEASE TAB PO SCH (15:46)
[2017-11-21] MEDS: WARFARIN SOD 2 MG TAB PO SCH (16:00)
[2017-11-21] MEDS: INSULIN ASPART SUPPLEMENTAL SCALE SQ SCH ×2 (16:43→21:00)
[2017-11-21] MEDS: metFORMIN HCL 500 MG TAB PO SCH (18:16)
[2017-11-21 18:39] VITALS: BP 154/74; PULSE 92; RESP 18; TEMP 98.2; O2SAT 97
[2017-11-21] MEDS: DOCUSATE SODIUM 50 MG/SENNA 8.6 MG TAB PO SCH (23:03)
[2017-11-22 06:51] VITALS: BP 190/85; PULSE 78; RESP 18; TEMP 98.2; O2SAT 94
[2017-11-22] MEDS: glipiZIDE 5 MG TAB PO SCH ×2 (07:00→16:47)
[2017-11-22 07:46] LABS: INTERNATIONAL NORMALIZED RATIO 1.2 RATIO; PROTHROMBIN TIME - PATIENT 11.8 SEC (9.8-11.6)
[2017-11-22] MEDS: INSULIN ASPART SUPPLEMENTAL SCALE SQ SCH ×4 (07:47→21:00)
[2017-11-22] MEDS: PANTOPRAZOLE SOD 40 MG DELAYED RELEASE TAB PO SCH ×2 (07:59→09:00)
[2017-11-22] MEDS: POLYETHYLENE GLYCOL 17 GM PKG PO SCH ×2 (07:59→09:00)
[2017-11-22] MEDS: MEGESTROL ACETATE 40 MG TAB PO SCH ×3 (07:59→20:51)
[2017-11-22] MEDS: metFORMIN HCL 500 MG TAB PO SCH ×3 (07:59→16:47)
[2017-11-22] MEDS: ATENOLOL 50 MG TAB PO SCH ×2 (07:59→20:51)
[2017-11-22] MEDS: DOCUSATE SODIUM 50 MG/SENNA 8.6 MG TAB PO SCH ×3 (07:59→20:51)
[2017-11-22] MEDS: DULoxetine HCl DR 30 MG CAP PO SCH (07:59)
[2017-11-22] MEDS: CHOLECALCIFEROL (VIT D3) 1000 UNIT TAB PO SCH ×2 (08:00→09:00)
[2017-11-22] MEDS: BUDESONIDE-FORMOTEROL 80/4.5 MCG INHALER INH SCH ×2 (08:00→20:54)
[2017-11-22] MEDS: ACETAMINOPHEN/HYDROcodone 325 MG/5 MG TAB PO PRN ×2 (08:00→20:51)
[2017-11-22] MEDS: ATORVASTATIN 40 MG TAB PO SCH ×2 (08:00→09:00)
[2017-11-22 08:49] VITALS: BP 175/84; PULSE 82; RESP 16; O2SAT 95
[2017-11-22] MEDS ORDERED: ONDANSETRON ODT 4 MG TAB PO PRN (09:15)
[2017-11-22] MEDS: LISINOPRIL 5 MG TAB PO SCH (09:15)
[2017-11-22 11:15] VITALS: BP 194/90; PULSE 90; RESP 18; O2SAT 96
[2017-11-22 11:20] VITALS: BP 192/92; PULSE 83; RESP 18
[2017-11-22] MEDS: cloNIDine HCL 0.1 MG TAB PO PRN (12:13)
[2017-11-22 13:20] VITALS: BP 141/72; PULSE 82; RESP 18; O2SAT 95
--- NOTE | 2017-11-22 14:37 | HHI.PR ---
Subjective Remarks Follow-up visit for back pain, HTN, a.fib, DM, and COPD. Received a call from the nurse earlier with concerns of elevated BP and also chest pain. Patient has been administered medications and BP is now stable, patient was also agreeable to take some of her medications. Patient is seen and examined in bed in no acute distress. She reports nausea that is relieved with Zofran, denies vomiting , headache, dizziness, SOB, cough, chest pain or pressure. No other complaints at this moment. Objective Vitals Vital Signs Date Time Temp Pulse Resp B/P (MAP) Pulse Ox O2 Delivery O2 Flow Rate FiO2 11/22/17 13:20 82 18 141/72 (95) 95 11/22/17 11:20 83 18 192/92 (125) 11/22/17 11:15 90 18 194/90 (124) 96 11/22/17 08:49 82 16 175/84 (114) 95 11/22/17 06:51 98.2 78 18 190/85 (120) 94 11/21/17 18:39 98.2 92 18 154/74 (100) 97 Result Diagram: 11/21/17 0812 Objective Remarks GENERAL: This is a well-nourished, well-developed patient, in no apparent distress. SKIN: Cool and dry. HEAD: Normocephalic. EYES: Pupils equal round. No scleral icterus. No injection or drainage. ENT: Nose without bleeding. Airway patent. NECK: Trachea midline. CARDIOVASCULAR: Irregular rate and rhythm without murmurs, gallops, or rubs. RESPIRATORY: Clear to auscultation. Breath sounds equal bilaterally. No wheezes , rales, or rhonchi. GASTROINTESTINAL: Abdomen soft, non-tender, nondistended. Bowel sounds active 4. MUSCULOSKELETAL: Extremities without clubbing, cyanosis, or edema. Kyphosis noted. NEUROLOGICAL: Awake and alert. Cranial nerves II through XII grossly intact. Motor and sensory grossly within normal limits.Normal speech. A/P Assessment and Plan Patient is an 82-year-old female with history of depression, atrial fibrillation , D, chronic back pain who initially came into the hospital scheduled to undergo neurosurgery for kyphoplasty but intentionally overdose on oxycodone/ acetaminophen. She has now admitted to inpatient psychiatry unit for further evaluation. Consulted for assistance with medical management. Depression, suicidal ideation -Managed by psychiatry team ?chest pain - 11/22 patient complained to nurse of upper abd pain ? if close to chest. - Troponin pending, EKG reviewed showing afib - No chest pain at the moment. Chronic back pain Status post kyphoplasty -Pain management, will give [place] 5/325mg. -We will not provide pain medications on DC. -PT eval and treat A. fib, chronic HTN, uncontrolled HLD -Rate control -Continue Coumadin. INR this AM 1.2 - Consult pharmacy for dosing -Continue atenolol 50 mg twice daily, atorvastatin 40 mg daily -BP elevated, added Lisinopril, with PRN clonidine -Continue monitoring BP and adjusting medications accordingly DM 2, not on insulin, no acute manifestations -Hemoglobin A1c 6.6 -Continue glipizide for now Metformin 500 mg twice daily -Blood sugar stable Chronic constipation Poor p.o. intake -Possibly secondary to narcotic use -MiraLAX daily, Megace daily, senna plus COPD, not in exacerbation -Continue Symbicort daily, ipratropium nasal spray DVT prop Coumadin Discussed with patient and nurse. Maricarmen Hines November 22, 2017 14:37
[2017-11-22] MEDS: WARFARIN SOD 2 MG TAB PO SCH (16:00)
--- NOTE | 2017-11-22 17:35 | PD.PSY.CON ---
Provisional Diagnosis Admission Date November 20, 2017 at 12:35 [place]. Major depressive disorder, single episode, without psychosis History of Present Illness Service Psychiatry Consult Requested By Dr. Mullins Reason for Consult Second opinion Primary Care Physician Unknown HPI 11/18/2017 The patient is a 82-year-old woman, domiciled alone in [place], never , no kids, with previous psychiatric history of depression, no previous suicidal attempts, no previous psychiatric hospitalizations, with medical history of atrial fibrillation on Coumadin, chronic back pain, who is scheduled to undergo neurosurgery today who presented yesterday with intentional overdose of oxycodone/acetaminophen. She took a handful of oxycodone/acetaminophen 5 mg tablets this morning around 5 AM. She reports previously feeling at baseline. She currently reports no adverse effects other than her pain is gone. Consulted to psychiatry to address suicidal intent. EMR reviewed. Case discussed with nursing charge. I also got collateral information from her niece Dia Wesley. Her niece reports that the patient has been depressed the last weeks due to pain. She says that she was kind of surprised when she knew that she tried to commit suicide. She says that she does not have any knowledge of the patient having any previous psychiatric history other than depression treated as an outpatient. She states that the patient in the last weeks has been quite pessimistic, catastrophic and seeing everything "with a lot of pessimism". on psychiatric evaluation the patient is calm, cooperative, pleasant. Patient reports that she tried to commit suicide because she was in excruciating pain and she could not take it anymore. Patient reports that she has been in a notable pain for 4 months now "and I do not think I can take it anymore". She says that she is hopeful the surgery will help her "but I have no very sure that I really had 2 surgeries before". The patient reports that she feels very depressed "but, at the same time I want to get better and I want to have anything". At this moment she denies suicidal enemas ideation, she denies visual and auditory hallucinations. The patient was able to contract for safety during this hospitalization, she also agrees with taking Cymbalta for depression and to help with the pain. The patient is fully oriented 3, no attention deficit, no fluctuation of consciousness at the moment. She is logical, coherent and relevant. She denies the use of illegal drugs and alcohol. 11/21/2017 the patient was seen today for psychiatric evaluation in 2600 unit. The patient is found in her bed. She is alert and awake, but seems to be quite distant superficially cooperative. The patient reports that she continues to be very depressed. She says that she does not have the energy to get out walk. Patient reports that she does not seem to have a clear reason "to do things and get better', even though she says that she will try medications to try to get out of depression. Reports to be very pessimistic, anhedonic, helpless, hopeless, worthless, "and this persistent pain does not help anything". She states that the major source of her depression is the pain. The pain is better now, 11/04, which he is anticipating that is going to be worse. The patient is fully oriented 3. She contracted for safety in the unit. 11/22/17 -second opinion Patient is a 82-year-old woman, domiciled alone single, no children with a past psychiatric history of depression, no previous psychiatric admissions, no previous suicide attempts, with past medical history significant for atrial fibrillation, chronic back pain, who was put under [place] act due to recent suicide attempt via overdose with OxyContin prescription tablets who was admitted to the inpatient psychiatry for further evaluation and management. Discussion nursing staff reported the patient to be somewhat irritable, wanted to be discharged and refuse lunch today. Patient was found lying hospital bed with poor eye contact noted to be irritable during interview stated that she does not feel well because she is here in the hospital. Patient reports having had recent back surgery on 11/19/17 which she had been them significant amount of pain which contributed to her recent overdose. Patient states that she is under Re[place] act because of her recent suicide attempt she tried to overdose on OxyContin tablets which he took a handful of. Patient states she has had a suicide ideations about a month ago due to the same. Patient mentions that after she had taken a handful of pills a neighbor had come over who had found her and called 9 1. Patient states that after she had taken a tablet she did not try to reach anyone but does remember having been transported to the hospital and EMS. When asked about why she had attempted to hang her life she stated "I did not think about it I was just sick". Patient denies having had any depressive symptoms prior to her overdose but also was noted to be superficially cooperative in no elaborate. Patient was able to mention that her difficulty with her limitations of certain activities due to her pain and chronic medical issues have kept her from certain activities which have contributed to her depression. Patient this time denies any SI, HI, AVH or delusions. Past Family Social History Coded Allergies: No Known Allergies (Verified Allergy, Unknown, 11/18/17) Active Scripts Megestrol (Megestrol) 40 Mg Tab, 40 MG PO Q12HR for appetite for 30 Days, TAB Prov:Rashad Alvarez MD 11/20/17 Polyethylene Glycol 3350 Powder (Polyethylene Glycol 3350 Powder) 17 Gram Pow, 17 GM PO DAILY for Constipation for 30 Days, BOTTLE Prov:Rashad Alvarez MD 11/20/17 Sennosides-Docusate Sodium (Gnp Senna Plus 8.6-50 mg) 8.6 Mg-50 Mg Tab, 1 TAB PO BID for Constipation for 3 Days, #6 TAB Prov:Rashad Alvarez MD 11/20/17 Reported Medications Warfarin (Warfarin) 2 Mg Tab, 2 MG PO TUTHSASU for Blood Clot Prevention, #30 TAB 0 Refills 11/07/17 Cholecalciferol (Vitamin D-1000) 1,000 Unit Tab, 1000 UNITS PO DAILY for Nutritional Supplement, #1 BOTTLE 0 Refills 08/14/17 Cyanocobalamin (Vitamin B-12) (Vitamin B-12) 1,000 Mcg/Ml Drops, 1 ML SQ MONTHLY 08/14/17 Budesonide-Formoterol Inh (Symbicort Inh) 80-4.5 Mcg/Act Aero, 2 PUFF INH Q12HR for Asthma Management, #1 INHALER 0 Refills 07/24/17 Ipratropium Nasal (Ipratropium Nasal) 0.06% [place], 2 SPRAY EACH NARE DAILY, #1 BOTTLE 0 Refills 07/24/17 Atorvastatin (Atorvastatin) 40 Mg Tab, 40 MG PO DAILY for Cholesterol Management , #30 TAB 0 Refills 07/24/17 Glipizide (Glipizide) 5 Mg Tab, 2.5 MG PO BIDAC for Blood Sugar Management, #60 TAB 0 Refills Take 30 minutes before a meal 07/24/17 Omeprazole (Omeprazole) 40 Mg Cap, 40 MG PO DAILY, #30 CAP 0 Refills 07/24/17 Atenolol (Atenolol) 50 Mg Tab, 50 MG PO BID for Blood Pressure Management, #14 TAB 0 Refills 07/24/17 Discontinued Reported Medications Oxycodone (Oxycodone) 5 Mg Cap, 5 MG PO Q4H Y for PAIN, CAP 0 Refills 11/18/17 Sennosides/Docusate Sodium (Colace 2-in-1 Tablet) 8.6 Mg-50 Mg Tablet, 2 TAB PO DAILY 11/17/17 Fenofibrate (Fenofibrate) 150 Mg Cap, 150 MG PO DAILY, #30 CAP 0 Refills 07/24/17 Warfarin (Warfarin) 4 Mg Tab, 4 MG PO MoFr for Blood Clot Prevention, #30 TAB 0 Refills 11/07/17 Lisinopril-Hctz (Lisinopril-Hctz) 10-12.5 Mg Tab, 1 TAB PO DAILY for Blood Pressure Management, #30 TAB 0 Refills 11/07/17 Lisinopril (Lisinopril) 10 Mg Tab, 10 MG PO DAILY, #30 TAB 0 Refills 07/24/17 Current Medications Medications (Trade) Dose Ordered Sig/Ritchie Route Start Time Stop Time Status Last Admin (Tenormin) 50 mg BID PO 11/20/17 13:15 11/22/17 07:59 (Lipitor) 40 mg DAILY PO 11/20/17 13:15 11/21/17 09:00 (Symbicort 80-4.5 Mcg Inh) 2 puff Q12HR INH 11/20/17 21:00 11/22/17 08:00 (Glucotrol) 2.5 mg BIDAC PO 11/20/17 16:00 11/22/17 16:47 (Megace) 40 mg Q12HR PO 11/20/17 21:00 11/22/17 09:00 (Vitamin B12 Inj) 1,000 mcg Q30D SQ 11/20/17 15:00 (Ativan) 0.5 mg Q12H PRN PO 11/20/17 13:15 (Ativan Inj) 0.5 mg Q12H PRN IM 11/20/17 13:15 (Tylenol) 650 mg Q4H PRN PO 11/20/17 13:15 11/20/17 20:47 (Milk Of Magnesia Liq) 30 ml DAILY PRN PO 11/20/17 13:15 (Mag-Al Plus Susp Liq) 30 ml Q6H PRN PO 11/20/17 13:15 (Pill Splitter) 1 ea UNSCH PRN OTHER 11/20/17 13:30 (Cymbalta Dr) 30 mg DAILY PO 11/21/17 09:00 11/22/17 07:59 (Coumadin) 2 mg DAILY@16 PO 11/21/17 16:00 11/22/17 16:00 (Vitamin D3) 1,000 units DAILY PO 11/22/17 09:00 (Miralax) 17 gm DAILY PO 11/22/17 09:00 11/22/17 09:00 (Stephanie-Colace) 1 tab BID PO 11/21/17 21:00 11/22/17 09:00 (Protonix) 40 mg DAILY PO 11/21/17 14:15 11/22/17 09:00 (Glucophage) 500 mg BIDPC PO 11/21/17 18:00 11/22/17 16:47 ([place] 5-325 Mg) 1 tab Q6H PRN PO 11/21/17 15:30 11/26/17 15:29 11/22/17 08:00 (D50w (Vial) Inj) 50 ml UNSCH PRN IV PUSH 11/21/17 15:30 (Glucagon Inj) 1 mg UNSCH PRN OTHER 11/21/17 15:30 (NovoLOG SUPPLEMENTAL SCALE) 1 ACHS SLIDING SCALE SQ 11/21/17 17:00 (Zofran Odt) 4 mg Q6H PRN PO 11/22/17 09:15 11/22/17 09:32 (Prinivil) 5 mg DAILY PO 11/22/17 09:15 11/22/17 09:15 (Catapres) 0.1 mg Q6H PRN PO 11/22/17 12:00 11/22/17 12:13 Pharmacy Profile Note 0 ml @ 0 mls/hr UNSCH OTHER 11/22/17 13:15 Patient's Strengths (min. 2) Verbal communication Physical Exam Vital Signs Vital Signs Date Time Temp Pulse Resp B/P (MAP) Pulse Ox O2 Delivery O2 Flow Rate FiO2 11/22/17 13:20 82 18 141/72 (95) 95 11/22/17 06:51 98.2 Lab Results Test 11/22/17 06:36 11/22/17 14:00 Prothrombin Time 11.8 SEC Prothromb Time International Ratio 1.2 RATIO Troponin I 0.05 NG/ML Mental Status Examination Appearance: Appropriate Consciousness: Alert Orientation: x4 Motor Activity: Normal gait Speech: Unremarkable Language: Adequate Fund of Knowledge: Adequate Attention and Concentration: Adequate Memory: Unremarkable Mood: Sad, Irritable Affect: Irritable, Sad Thought Process & Associations: Intact Thought Content: Appropriate Hallucination Type: None Delusion Type: None Suicidal Ideation: No Suicidal Plan: No Suicidal Intention: No Homicidal Ideation: No Homicidal Plan: No Homicidal Intention: No Insight: Poor Judgment: Poor Assessment & Plan Problem List: (1) Major depressive disorder, single episode ICD Codes: F32.9 - Major depressive disorder, single episode, unspecified Assessment & Plan I have seen and examined this patient, reviewed the documentation, discussed personally with Dr. Mullins, and I agree and concur with his assessment and plan. Consult appreciated. Patient this time to continue Cymbalta 30 mg p.o. daily for depression. Hospitalist consult pending. Continue to monitor mood and behavior. We will continue recommendations as her prior medical team after evaluation. Collateral vision pending from patient's sister, [place]. Social work intervention for psychosocial assessment. Discharge planning in progress. Discharge Planning Patient return back to her residence upon psychiatric stabilization. Lencho Velasquez MD November 22, 2017 17:35
[2017-11-22 18:05] VITALS: BP 119/58; PULSE 78; RESP 16; TEMP 98.4; O2SAT 98
[2017-11-23 06:05] VITALS: BP 164/73; PULSE 87; RESP 16; TEMP 98.2; O2SAT 96
[2017-11-23] MEDS: glipiZIDE 5 MG TAB PO SCH ×2 (07:00→15:25)
[2017-11-23] MEDS: INSULIN ASPART SUPPLEMENTAL SCALE SQ SCH ×4 (08:00→21:42)
[2017-11-23] MEDS: BUDESONIDE-FORMOTEROL 80/4.5 MCG INHALER INH SCH ×2 (09:00→21:39)
[2017-11-23] MEDS: ATENOLOL 50 MG TAB PO SCH ×2 (09:00→21:39)
[2017-11-23] MEDS: LISINOPRIL 5 MG TAB PO SCH (09:00)
[2017-11-23] MEDS: DULoxetine HCl DR 30 MG CAP PO SCH (09:58)
[2017-11-23] MEDS: CHOLECALCIFEROL (VIT D3) 1000 UNIT TAB PO SCH (09:58)
[2017-11-23] MEDS: POLYETHYLENE GLYCOL 17 GM PKG PO SCH (09:58)
[2017-11-23] MEDS: metFORMIN HCL 500 MG TAB PO SCH ×2 (09:59→18:00)
[2017-11-23] MEDS: ATORVASTATIN 40 MG TAB PO SCH (09:59)
[2017-11-23] MEDS: MEGESTROL ACETATE 40 MG TAB PO SCH ×2 (09:59→21:39)
[2017-11-23] MEDS: PANTOPRAZOLE SOD 40 MG DELAYED RELEASE TAB PO SCH (09:59)
[2017-11-23] MEDS: DOCUSATE SODIUM 50 MG/SENNA 8.6 MG TAB PO SCH ×2 (10:00→21:39)
[2017-11-23 11:41] LABS: INTERNATIONAL NORMALIZED RATIO 1.5 RATIO; PROTHROMBIN TIME - PATIENT 14.8 SEC (9.8-11.6)
[2017-11-23] MEDS: ACETAMINOPHEN/HYDROcodone 325 MG/5 MG TAB PO PRN ×2 (11:55→21:53)
--- NOTE | 2017-11-23 14:03 | EKG ---
Date Performed: 11/22/2017 Time Performed: 13:28:00 PTAGE: 82 years EKG: ATRIAL FIBRILLATION POSSIBLE ANTERIOR MYOCARDIAL INFARCTION , PROBABLY OLD ABNORMAL RHYTHM ECG PREVIOUS TRACING : 11/18/2017 08.40 Since the previous tracing, no significant change noted DOCTOR: Lisandro Mcginnis Interpretating Date/Time 11/23/2017 14:01:16
--- NOTE | 2017-11-23 14:49 | HHI.PR ---
Subjective Remarks Follow-up visit for back pain, HTN, a.fib, DM, intentional OD with recent kyphoplasty. Patient is seen ambulating in the room with the use of walker. She is examined in her room. Tells me that just because of one bad decision she is now she is here and feel as if this is punishment. She denies any fevers, chills , N/V/D, SOB, cough, dizziness or chest pain. Complains of constipation, cant remember when her last BM was. She also states she has not been eating much. She voices no other acute concerns at this moment. Objective Vitals Vital Signs Date Time Temp Pulse Resp B/P (MAP) Pulse Ox O2 Delivery O2 Flow Rate FiO2 11/23/17 06:05 98.2 87 16 164/73 (103) 96 11/22/17 18:05 98.4 78 16 119/58 (78) 98 I/O 11/22/17 11/22/17 11/22/17 11/23/17 11/23/17 11/23/17 07:00 15:00 23:00 07:00 15:00 23:00 Intake Total 360 ml Balance 360 ml Intake Oral 360 ml Result Diagram: 11/21/17 0812 Objective Remarks GENERAL: This is a well-nourished, well-developed patient, in no apparent distress. SKIN: Cool and dry. HEAD: Normocephalic. EYES: Pupils equal round. No scleral icterus. No injection or drainage. ENT: Nose without bleeding. Airway patent. NECK: Trachea midline. CARDIOVASCULAR: Irregular rate and rhythm without murmurs, gallops, or rubs. RESPIRATORY: Clear to auscultation. Breath sounds equal bilaterally. No wheezes , rales, or rhonchi. GASTROINTESTINAL: Abdomen soft, non-tender, nondistended. Bowel sounds active 4. MUSCULOSKELETAL: Extremities without clubbing, cyanosis, or edema. Kyphosis noted. NEUROLOGICAL: Awake and alert. Cranial nerves II through XII grossly intact. Motor and sensory grossly within normal limits.Normal speech. A/P Assessment and Plan Patient is an 82-year-old female with history of depression, atrial fibrillation , D, chronic back pain who initially came into the hospital scheduled to undergo neurosurgery for kyphoplasty but intentionally overdose on oxycodone/ acetaminophen. She has now admitted to inpatient psychiatry unit for further evaluation. Consulted for assistance with medical management. Depression, suicidal ideation -Managed by psychiatry team ?chest pain - 11/22 patient complained to nurse of upper abd pain ? if close to chest. - Troponin 0.05, 0.04, EKG reviewed showing afib - No chest pain Chronic back pain Status post kyphoplasty -Pain management, will give [place] 5/325mg. -We will not provide pain medications on DC. -PT eval and treat A. fib, chronic HTN, uncontrolled HLD -Rate control -Continue Coumadin. INR this AM 1.5 - Consult pharmacy for dosing -Continue atorvastatin 40 mg daily -BP improved, continue atenolol 50 mg twice daily, Lisinopril, with PRN clonidine -Continue monitoring BP and adjusting medications accordingly DM 2, not on insulin, no acute manifestations -Hemoglobin A1c 6.6 -Continue glipizide for now Metformin 500 mg twice daily -Accu-checks stable Chronic constipation Poor p.o. intake -Possibly secondary to narcotic use -MiraLAX daily, Megace daily, senna plus, still with no BM +bowel sounds - Add Lactulose, encourage PO intake, check KUB COPD, not in exacerbation -Continue Symbicort daily, ipratropium nasal spray DVT prop Coumadin Discussed with patient and nurse. Maricarmen Hines November 23, 2017 14:49
[2017-11-23] MEDS: LACTULOSE SYRUP 20 GM/30 ML CUP PO SCH (15:00)
[2017-11-23] MEDS: WARFARIN SOD 2 MG TAB PO SCH (15:36)
[2017-11-23 17:28] VITALS: BP 142/76; PULSE 103; RESP 18; TEMP 97.8; O2SAT 99
--- NOTE | 2017-11-23 18:40 | HHI.PYPN ---
Subjective Remarks Patient seen for follow-up, chart reviewed. Discussion with nursing staff reported the patient continued to be sarcastic with staff, resistant to care. Patient was found lying hospital bed was able to sit up and engage in interview today. She states that is feeling "fine" and is trying to eat more and trying to be able to be more ambulatory and mobile but continues to have back pain. Patient states he is agreeable to look at to health and rehabilitation post discharge stating her mood is has been "fine". She states she has spoken to her sister who was currently concerned of her recent suicide attempt. Patient this time is exploring who would be involved as part of her support upon discharge but is considering to go to health and rehab facility. Patient tolerated medications well denies any adverse drug reactions at this time. Review of Systems Except as stated in HPI: all other systems reviewed are Neg Mental Status Examination Appearance: Appropriate Consciousness: Alert Orientation: x4 Motor Activity: Normal gait Speech: Unremarkable Language: Adequate Fund of Knowledge: Adequate Attention and Concentration: Adequate Memory: Unremarkable Mood: Sad, Irritable Affect: Irritable Thought Process & Associations: Intact Thought Content: Appropriate Hallucination Type: None Delusion Type: None Suicidal Ideation: No Suicidal Plan: No Suicidal Intention: No Homicidal Ideation: No Homicidal Plan: No Homicidal Intention: No Insight: Poor Judgment: Poor Results Labs Labs reviewed Test 11/22/17 20:41 11/23/17 11:20 Troponin I 0.04 NG/ML Prothrombin Time 14.8 SEC Prothromb Time International Ratio 1.5 RATIO Vitals/IOs Vital Signs Date Time Temp Pulse Resp B/P (MAP) Pulse Ox O2 Delivery O2 Flow Rate FiO2 11/23/17 17:28 97.8 103 18 142/76 (98) 99 Intake and Output 11/23/17 11/23/17 11/24/17 08:00 16:00 00:00 Intake Total 360 ml Balance 360 ml Assessment & Plan Problem List: (1) Major depressive disorder, single episode ICD Codes: F32.9 - Major depressive disorder, single episode, unspecified Assessment & Plan Patient this time continues to be noted to be somewhat irritable that she is here in the hospital involuntarily after suicide attempt but denying any further suicidal ideations, now considering possibility of going to a health and rehab but also wanted to go home with services if possible. We will continue to monitor mood and behavior. We will continue to coordinate safe discharge plan with appropriate services for support. Discharge planning in progress. Justification for Cont. Inpt. At risk of further decompensation a lower level of care. Discharge Planning To be determined. Lencho Velasquez MD November 23, 2017 18:40
[2017-11-24 06:28] VITALS: BP 184/89; PULSE 87; RESP 16; TEMP 98.2; O2SAT 95
[2017-11-24] MEDS: cloNIDine HCL 0.1 MG TAB PO PRN (06:51)
[2017-11-24] MEDS: glipiZIDE 5 MG TAB PO SCH ×2 (07:08→17:47)
[2017-11-24] MEDS: INSULIN ASPART SUPPLEMENTAL SCALE SQ SCH ×4 (08:00→20:55)
[2017-11-24] MEDS: BUDESONIDE-FORMOTEROL 80/4.5 MCG INHALER INH SCH ×2 (09:00→20:50)
[2017-11-24] MEDS: POLYETHYLENE GLYCOL 17 GM PKG PO SCH (09:00)
--- NOTE | 2017-11-24 09:30 | RADRPT ---
EXAM DATE: 11/24/2017 9:10 AM EDT AGE/SEX: 82 years / Female INDICATIONS: Constipation and abdominal pain. CLINICAL DATA: This is the patient's initial encounter. Patient reports that signs and symptoms have been present for 3 days and indicates a pain score of 5/10. MEDICAL/SURGICAL HISTORY: Hypercholesterolemia. Hypothyroidism. Chronic obstructive pulmonary disease. Arthritis. Osteoporosis. Diabetes. TIA. Atrial fibrillation. Hypertension. Emphysema. Asth ma. GERD. Appendectomy. Total knee replacement, right. Right knee arthroscopy. Kyphoplasty. COMPARISON: No prior [facility] exams available for comparison. FINDINGS: Moderate amount of stool is present in the colon with no evidence of obstruction. There are multiple calcified phleboliths in the pelvis. No abnormal masses, calcifications, or organomegaly is seen. Th e patient is status post multilevel kyphoplasty. There is diffuse osteopenia. Costal cartilage calcif ication is present. CONCLUSION: 1. Moderate amount of stool in the colon with no evidence of obstruction. 2. Status post multilevel kyphoplasty. Electronically signed by: Byron Nick MD 11/24/2017 9:29 AM EDT
[2017-11-24 09:42] LABS: INTERNATIONAL NORMALIZED RATIO 1.7 RATIO; PROTHROMBIN TIME - PATIENT 16.7 SEC (9.8-11.6)
[2017-11-24] MEDS: MEGESTROL ACETATE 40 MG TAB PO SCH ×2 (09:55→20:49)
[2017-11-24] MEDS: CHOLECALCIFEROL (VIT D3) 1000 UNIT TAB PO SCH (09:55)
[2017-11-24] MEDS: PANTOPRAZOLE SOD 40 MG DELAYED RELEASE TAB PO SCH (09:55)
[2017-11-24] MEDS: LACTULOSE SYRUP 20 GM/30 ML CUP PO SCH (09:55)
[2017-11-24] MEDS: ATENOLOL 50 MG TAB PO SCH ×2 (09:56→20:49)
[2017-11-24] MEDS: metFORMIN HCL 500 MG TAB PO SCH ×2 (09:56→18:38)
[2017-11-24] MEDS: ATORVASTATIN 40 MG TAB PO SCH (09:56)
[2017-11-24] MEDS: DULoxetine HCl DR 30 MG CAP PO SCH (09:56)
[2017-11-24] MEDS: DOCUSATE SODIUM 50 MG/SENNA 8.6 MG TAB PO SCH ×2 (09:56→20:50)
[2017-11-24] MEDS: LISINOPRIL 5 MG TAB PO SCH (09:56)
[2017-11-24] MEDS ORDERED: Lactulose Liq PO (14:12)
[2017-11-24] MEDS ORDERED: ATEN50TA PO (14:12)
[2017-11-24] MEDS ORDERED: CHOL1000 PO (14:12)
[2017-11-24] MEDS ORDERED: POLY17S PO (14:12)
[2017-11-24] MEDS ORDERED: PERI PO (14:12)
[2017-11-24] MEDS ORDERED: COUM2TAB PO (14:12)
[2017-11-24] MEDS ORDERED: GLIP5TAB8 PO (14:12)
[2017-11-24] MEDS ORDERED: ATOR40TA16 PO (14:12)
[2017-11-24] MEDS ORDERED: METF500 PO (14:12)
[2017-11-24] MEDS ORDERED: PANT40TA3 PO (14:12)
[2017-11-24] MEDS ORDERED: MEGE40TA PO (14:12)
[2017-11-24] MEDS ORDERED: Budeson-Formot 80-4.5 Mcg Inh INH (14:12)
[2017-11-24] MEDS ORDERED: LISI-519 PO (14:12)
[2017-11-24] MEDS ORDERED: DULO1CAP2 PO (14:12)
--- NOTE | 2017-11-24 14:45 | HHI.PR ---
Subjective Remarks Follow-up visit for back pain, HTN, a.fib, DM, intentional OD with recent kyphoplasty. Spoke with who is attempting to arrange DC. Patient is seen and examined sitting up in wheelchair in no acute distress. She reports loose BM today. Denies any fevers, chills, N/V, SOB, cough, or chest pain. She has no acute complaints or concerns at this moment. Objective Vitals Vital Signs Date Time Temp Pulse Resp B/P (MAP) Pulse Ox O2 Delivery O2 Flow Rate FiO2 11/24/17 06:28 98.2 87 16 184/89 (120) 95 11/23/17 22:53 16 11/23/17 17:28 97.8 103 18 142/76 (98) 99 I/O 11/23/17 11/23/17 11/23/17 11/24/17 11/24/17 11/24/17 07:00 15:00 23:00 07:00 15:00 23:00 Intake Total 360 ml Balance 360 ml Intake Oral 360 ml Result Diagram: 11/21/17 0812 Imaging Last Impressions Abdomen X-Ray 11/24/17 0000 Signed Impressions: CONCLUSION: 1. Moderate amount of stool in the colon with no evidence of obstruction. 2. Status post multilevel kyphoplasty. Objective Remarks GENERAL: This is a well-nourished, well-developed patient, in no apparent distress. SKIN: Cool and dry. Top and bottom back dressings removed, visible steri-strips with no surrounding drainage or warmth noted. HEAD: Normocephalic. EYES: Pupils equal round. No scleral icterus. No injection or drainage. ENT: Nose without bleeding. Airway patent. NECK: Trachea midline. CARDIOVASCULAR: Irregular rate and rhythm without murmurs, gallops, or rubs. RESPIRATORY: Clear to auscultation. Breath sounds equal bilaterally. No wheezes , rales, or rhonchi. GASTROINTESTINAL: Abdomen soft, non-tender, nondistended. Bowel sounds active 4. MUSCULOSKELETAL: Extremities without clubbing, cyanosis, or edema. Kyphosis noted. NEUROLOGICAL: Awake and alert. Cranial nerves II through XII grossly intact. Motor and sensory grossly within normal limits.Normal speech. A/P Assessment and Plan Patient is an 82-year-old female with history of depression, atrial fibrillation , D, chronic back pain who initially came into the hospital scheduled to undergo neurosurgery for kyphoplasty but intentionally overdose on oxycodone/ acetaminophen. She has now admitted to inpatient psychiatry unit for further evaluation. Consulted for assistance with medical management. Depression, suicidal ideation -Managed by psychiatry team ?chest pain - 11/22 patient complained to nurse of upper abd pain ? if close to chest. - Troponin 0.05, 0.04, EKG reviewed showing afib - No chest pain Chronic back pain Status post kyphoplasty -Pain management, will give [place] 5/325mg. -We will not provide pain medications on DC. -PT eval and treat A. fib, chronic HTN, uncontrolled HLD -Rate control -Continue Coumadin. INR 1.2-->1.5-->1.7 - Continue Coumadin 2mg and check INR daily while here, if not can check INR as out patient and followup with PCP -Continue atorvastatin 40 mg daily -BP elevated this AM, but it appears that patient did not get all BP meds yesterday in the AM - Continue atenolol 50 mg twice daily, Lisinopril, with PRN clonidine -Continue monitoring BP and adjusting medications accordingly DM 2, not on insulin, no acute manifestations -Hemoglobin A1c 6.6 -Continue glipizide for now Metformin 500 mg twice daily -Accu-checks stable Chronic constipation, now diarrhea Poor p.o. intake -Possibly secondary to narcotic use -MiraLAX daily, Megace daily, senna plus, and Lactulose. - Discussed with patient proper use of stool softeners including Miralax and Lactulose, hold for loose stools. She verbalized understanding. COPD, not in exacerbation -Continue Symbicort daily, ipratropium nasal spray DVT prop Coumadin Discussed with patient, nurse and . Maricarmen Hines November 24, 2017 14:45
[2017-11-24] MEDS: WARFARIN SOD 2 MG TAB PO SCH (17:48)
[2017-11-24 17:50] VITALS: BP 149/79; PULSE 98; RESP 18; TEMP 97.8; O2SAT 98
--- NOTE | 2017-11-24 18:27 | HHI.PYPN ---
Subjective Remarks Patient seen for follow, chart reviewed. Discussion nursing staff reported the patient had bowel movement after several days of constipation which she had soiled herself, denying any suicide ideations. Patient was found sitting in chair awaiting for assistance to shower after fecal incontinence due to recent treatment for constipation. Patient states that she had a bowel movement today and glad that she had been having constipation for several days now. Patient aware that sister had been assisting in referring patient to a rehabilitation facility where she agreed to. Patient denies any suicide ideations reports her mood improving but continues to want to move to the rehabilitation program as she did no longer wants to be on the inpatient psychiatry unit. Patient denies any perceptional services at this time. Review of Systems Except as stated in HPI: all other systems reviewed are Neg Mental Status Examination Appearance: Appropriate Consciousness: Alert Orientation: x4 Motor Activity: Normal gait Speech: Unremarkable Language: Adequate Fund of Knowledge: Adequate Attention and Concentration: Adequate Memory: Unremarkable, Impaired Affect: Appropriate Thought Process & Associations: Intact Thought Content: Appropriate Hallucination Type: None Delusion Type: None Suicidal Ideation: No Suicidal Plan: No Suicidal Intention: No Homicidal Ideation: No Homicidal Plan: No Homicidal Intention: No Insight: Fair Judgment: Impulsive Results Labs Test 11/24/17 07:11 Prothrombin Time 16.7 SEC Prothromb Time International Ratio 1.7 RATIO Vitals/IOs Vital Signs Date Time Temp Pulse Resp B/P (MAP) Pulse Ox O2 Delivery O2 Flow Rate FiO2 11/24/17 17:50 97.8 98 18 149/79 (102) 98 Assessment & Plan Problem List: (1) Major depressive disorder, single episode ICD Codes: F32.9 - Major depressive disorder, single episode, unspecified Assessment & Plan Patient this time reporting improved mood, denies any suicide ideations. Patient looking forward to discharge to rehabilitation Center prior to transitioning back home. Patient likely for discharge tomorrow morning to a health and rehab facility. Continue current treatment. Discharge planning in progress. Justification for Cont. Inpt. At risk of further decompensation a lower level of care. Discharge Planning Patient to be discharged to health and rehab facility. Lencho Velasquez MD November 24, 2017 18:27
[2017-11-24 20:20] VITALS: BP 150/85; PULSE 87; RESP 16
[2017-11-24] MEDS: ACETAMINOPHEN 325 MG TAB PO PRN (20:49)
[2017-11-25] MEDS: glipiZIDE 5 MG TAB PO SCH ×2 (06:23→17:44)
[2017-11-25 06:29] VITALS: BP 149/98; PULSE 99; RESP 16; TEMP 97.6; O2SAT 98
[2017-11-25 06:33] LABS: INTERNATIONAL NORMALIZED RATIO 1.9 RATIO
[2017-11-25] MEDS: INSULIN ASPART SUPPLEMENTAL SCALE SQ SCH ×4 (08:00→20:19)
[2017-11-25] MEDS: ATENOLOL 50 MG TAB PO SCH ×2 (08:10→20:35)
[2017-11-25] MEDS: LISINOPRIL 5 MG TAB PO SCH (08:10)
[2017-11-25] MEDS: DULoxetine HCl DR 30 MG CAP PO SCH (09:29)
[2017-11-25] MEDS: BUDESONIDE-FORMOTEROL 80/4.5 MCG INHALER INH SCH ×2 (09:29→20:35)
[2017-11-25] MEDS: MEGESTROL ACETATE 40 MG TAB PO SCH ×2 (09:30→20:35)
[2017-11-25] MEDS: PANTOPRAZOLE SOD 40 MG DELAYED RELEASE TAB PO SCH (09:30)
[2017-11-25] MEDS: LACTULOSE SYRUP 20 GM/30 ML CUP PO SCH (09:30)
[2017-11-25] MEDS: DOCUSATE SODIUM 50 MG/SENNA 8.6 MG TAB PO SCH ×2 (09:30→20:35)
[2017-11-25] MEDS: ATORVASTATIN 40 MG TAB PO SCH (09:30)
[2017-11-25] MEDS: CHOLECALCIFEROL (VIT D3) 1000 UNIT TAB PO SCH (09:30)
[2017-11-25] MEDS: metFORMIN HCL 500 MG TAB PO SCH ×2 (09:30→17:59)
[2017-11-25] MEDS: POLYETHYLENE GLYCOL 17 GM PKG PO SCH (09:30)
--- NOTE | 2017-11-25 16:24 | HHI.PYPN ---
Subjective Remarks Patient seen for follow, chart reviewed. Discussion nursing staff reported the patient awaiting for discharge to rehabilitation center denying any suicide ideations. Patient was found sitting hospital chair noted B, cooperative. Patient states she feels ready to go on to the rehabilitation Center reports her mood has improved, denying any suicide ideations at this time. Patient reports having had more bowel movements now with current regimen. Review of Systems Except as stated in HPI: all other systems reviewed are Neg Mental Status Examination Appearance: Appropriate Consciousness: Alert Orientation: x4 Motor Activity: Normal gait Speech: Unremarkable Language: Adequate Fund of Knowledge: Adequate Attention and Concentration: Adequate Memory: Unremarkable, Impaired Mood: Appropriate Affect: Appropriate Thought Process & Associations: Intact Thought Content: Appropriate Hallucination Type: None Delusion Type: None Suicidal Ideation: No Suicidal Plan: No Suicidal Intention: No Homicidal Ideation: No Homicidal Plan: No Homicidal Intention: No Insight: Fair Judgment: Impulsive Results Labs Labs reviewed Test 11/25/17 05:48 Prothrombin Time 19.0 SEC Prothromb Time International Ratio 1.9 RATIO Vitals/IOs Vital Signs Date Time Temp Pulse Resp B/P (MAP) Pulse Ox O2 Delivery O2 Flow Rate FiO2 11/25/17 06:29 97.6 99 16 149/98 (115) 98 Assessment & Plan Problem List: (1) Major depressive disorder, single episode ICD Codes: F32.9 - Major depressive disorder, single episode, unspecified Assessment & Plan Patient scheduled for discharge but due to logistical difficulties with arrangement with the health and rehabilitation Center, which patient sister is assisting in completing, was postponed and discharged likely for tomorrow. Patient this time denying any depressive symptoms denying any suicide ideations. We will continue current treatment and have patient discharged to rehabilitation center tomorrow. Justification for Cont. Inpt. At risk for further decompensation if at lower level of care Discharge Planning Patient for discharge tomorrow to health and rehab Center. Lencho Velasquez MD November 25, 2017 16:24
[2017-11-25 17:34] VITALS: BP 112/55; PULSE 101; RESP 17; TEMP 97.7; O2SAT 97
[2017-11-25] MEDS: WARFARIN SOD 2 MG TAB PO SCH (17:44)
[2017-11-26 05:21] VITALS: BP 140/69; PULSE 90; RESP 16; TEMP 97.6; O2SAT 97
[2017-11-26] MEDS: glipiZIDE 5 MG TAB PO SCH (06:46)
[2017-11-26 07:15] LABS: PROTHROMBIN TIME - PATIENT 20.3 SEC (9.8-11.6)
[2017-11-26] MEDS: INSULIN ASPART SUPPLEMENTAL SCALE SQ SCH ×2 (08:00→11:52)
[2017-11-26] MEDS: POLYETHYLENE GLYCOL 17 GM PKG PO SCH (09:00)
[2017-11-26] MEDS: DOCUSATE SODIUM 50 MG/SENNA 8.6 MG TAB PO SCH (09:00)
[2017-11-26] MEDS: LACTULOSE SYRUP 20 GM/30 ML CUP PO SCH (09:00)
[2017-11-26] MEDS: MEGESTROL ACETATE 40 MG TAB PO SCH (09:37)
[2017-11-26] MEDS: ATORVASTATIN 40 MG TAB PO SCH (09:37)
[2017-11-26] MEDS: ATENOLOL 50 MG TAB PO SCH (09:37)
[2017-11-26] MEDS: metFORMIN HCL 500 MG TAB PO SCH (09:37)
[2017-11-26] MEDS: LISINOPRIL 5 MG TAB PO SCH (09:37)
[2017-11-26] MEDS: CHOLECALCIFEROL (VIT D3) 1000 UNIT TAB PO SCH (09:38)
[2017-11-26] MEDS: PANTOPRAZOLE SOD 40 MG DELAYED RELEASE TAB PO SCH (09:38)
[2017-11-26] MEDS: DULoxetine HCl DR 30 MG CAP PO SCH (09:38)
[2017-11-26] MEDS: BUDESONIDE-FORMOTEROL 80/4.5 MCG INHALER INH SCH (09:38)
--- NOTE | 2017-11-26 18:20 | HHI.DS ---
Psychiatry Discharge Summary Inpatient Psychiatric care?: Yes Advance Directive: No Reason Not Provided: Due to Patient Condition Mental Health AdvanceDirective: No Health Care Proxy: No Admission Admission Date November 20, 2017 at 12:35 Admission Diagnosis: (1) Major depressive disorder, single episode ICD Code: F32.9 - Major depressive disorder, single episode, unspecified Brief History 11/18/2017 The patient is a 82-year-old woman, domiciled alone in [place], never , no kids, with previous psychiatric history of depression, no previous suicidal attempts, no previous psychiatric hospitalizations, with medical history of atrial fibrillation on Coumadin, chronic back pain, who is scheduled to undergo neurosurgery today who presented yesterday with intentional overdose of oxycodone/acetaminophen. She took a handful of oxycodone/acetaminophen 5 mg tablets this morning around 5 AM. She reports previously feeling at baseline. She currently reports no adverse effects other than her pain is gone. Consulted to psychiatry to address suicidal intent. EMR reviewed. Case discussed with nursing charge. I also got collateral information from her niece Dia Wesley. Her niece reports that the patient has been depressed the last weeks due to pain. She says that she was kind of surprised when she knew that she tried to commit suicide. She says that she does not have any knowledge of the patient having any previous psychiatric history other than depression treated as an outpatient. She states that the patient in the last weeks has been quite pessimistic, catastrophic and seeing everything "with a lot of pessimism". on psychiatric evaluation the patient is calm, cooperative, pleasant. Patient reports that she tried to commit suicide because she was in excruciating pain and she could not take it anymore. Patient reports that she has been in a notable pain for 4 months now "and I do not think I can take it anymore". She says that she is hopeful the surgery will help her "but I have no very sure that I really had 2 surgeries before". The patient reports that she feels very depressed "but, at the same time I want to get better and I want to have anything". At this moment she denies suicidal enemas ideation, she denies visual and auditory hallucinations. The patient was able to contract for safety during this hospitalization, she also agrees with taking Cymbalta for depression and to help with the pain. The patient is fully oriented 3, no attention deficit, no fluctuation of consciousness at the moment. She is logical, coherent and relevant. She denies the use of illegal drugs and alcohol. 11/21/2017 the patient was seen today for psychiatric evaluation in 2600 unit. The patient is found in her bed. She is alert and awake, but seems to be quite distant superficially cooperative. The patient reports that she continues to be very depressed. She says that she does not have the energy to get out walk. Patient reports that she does not seem to have a clear reason "to do things and get better', even though she says that she will try medications to try to get out of depression. Reports to be very pessimistic, anhedonic, helpless, hopeless, worthless, "and this persistent pain does not help anything". She states that the major source of her depression is the pain. The pain is better now, 11/04, which he is anticipating that is going to be worse. The patient is fully oriented 3. She contracted for safety in the unit. 11/22/17 -second opinion Patient is a 82-year-old woman, domiciled alone single, no children with a past psychiatric history of depression, no previous psychiatric admissions, no previous suicide attempts, with past medical history significant for atrial fibrillation, chronic back pain, who was put under Reyes act due to recent suicide attempt via overdose with OxyContin prescription tablets who was admitted to the inpatient psychiatry for further evaluation and management. Discussion nursing staff reported the patient to be somewhat irritable, wanted to be discharged and refuse lunch today. Patient was found lying hospital bed with poor eye contact noted to be irritable during interview stated that she does not feel well because she is here in the hospital. Patient reports having had recent back surgery on 11/19/17 which she had been them significant amount of pain which contributed to her recent overdose. Patient states that she is under Reyes act because of her recent suicide attempt she tried to overdose on OxyContin tablets which he took a handful of. Patient states she has had a suicide ideations about a month ago due to the same. Patient mentions that after she had taken a handful of pills a neighbor had come over who had found her and called 9 1. Patient states that after she had taken a tablet she did not try to reach anyone but does remember having been transported to the hospital and EMS. When asked about why she had attempted to hang her life she stated "I did not think about it I was just sick". Patient denies having had any depressive symptoms prior to her overdose but also was noted to be superficially cooperative in no elaborate. Patient was able to mention that her difficulty with her limitations of certain activities due to her pain and chronic medical issues have kept her from certain activities which have contributed to her depression. Patient this time denies any SI, HI, AVH or delusions. Tobacco Use In Past 30 Days: No Tobacco Past 30 Days Alcohol Use: Never Hospital Course Patient is a 82-year-old woman, domiciled alone single, no children with a past psychiatric history of depression, no previous psychiatric admissions, no previous suicide attempts, with past medical history significant for atrial fibrillation, chronic back pain, who was put under Reyes act due to recent suicide attempt via overdose with OxyContin prescription tablets who was admitted to the inpatient psychiatry for further evaluation and management. Patient started on duloxetine 30mg PO daily and continued on medication regimen for chronic medical illnesses which patient tolerated well with no notable adverse drug reactions. Patient was noted with reported depressive symptoms and irritability to having been admitted to the inpatient psychiatry unit but continued to adhere to treatment. She did not endorse any manic or psychotic symptoms, and no longer endorsed SI after continued treatment. As patient continued with treatment, she was noted to have improvement in mood, and continued to deny SI. Patient was noted with stable mood, was noted to participate in self care, engaging with staff and maintaining adequate hygiene. Treatment team was able to set up outpatient follow up appointments which the patient can continue with current medication regimen. She was discharged to a health and rehabilitation center as patients sister assisted in arranging with treatment team. Upon discharge patient stated that she was feeling good, reported well with the treatment, as well as motivation to continue recommendations and denied any SI, HI, perceptual disturbances or delusions. Weighing the acute, chronic, and protective factors and based on the available evidence, I tube skiver to a reasonable degree of medical certainty that the patient is at low imminent risk of harm to self or others from a mental illness as defined under the Reyes act and his level of function is adequate as observed on the unit for planned level of outpatient care. He was counseled regarding warning signs for need to return to the psychiatric emergency room as part of a general safety plan. Patient advised to call 911 or go nearest ED in case of emergency. Patient agreed with plan. Results Blood Pressure 140 / 69 Vital Signs Date Time Temp Pulse Resp B/P (MAP) Pulse Ox O2 Delivery O2 Flow Rate FiO2 11/26/17 05:21 97.6 90 16 140/69 (92) 97 Laboratory Tests Test 11/24/17 07:11 11/25/17 05:48 11/26/17 06:35 Prothrombin Time 16.7 SEC (9.8-11.6) 19.0 SEC (9.8-11.6) 20.3 SEC (9.8-11.6) Laboratory Results Test 11/21/17 08:12 Cholesterol Level 125 MG/DL (120-200) HDL Cholesterol 59.6 MG/DL (40.0-60.0) Hemoglobin A1c 6.6 % (4.3-6.0) LDL Cholesterol 46 MG/DL (0-99) Triglycerides Level 95 MG/DL (42-150) Summary of Procedures None Imaging Last Impressions Abdomen X-Ray 11/24/17 0000 Signed Impressions: CONCLUSION: 1. Moderate amount of stool in the colon with no evidence of obstruction. 2. Status post multilevel kyphoplasty. Pending results at discharge: No Medications # of Antipsychotic meds at D/C: 0 Approp Antipsych med options 1 - Minimum of three failed multiple trials of monotherapy. 2 - Documented plan to taper to monotherapy due to previous use of multiple meds OR cross-taper in progress at D/C. 3 - Documentation of augmentation of Clozapine. 4 - Justification other than those listed in allowable values 1-3, document here : Discharge Discharge Date: Nov 26, 2017 Discharge Diagnosis: (1) Major depressive disorder, single episode ICD Code: F32.9 - Major depressive disorder, single episode, unspecified Pt Condition on Discharge: Stable Discharge Disposition: Discharge to SNF Discharge Instructions Diet Instructions: Heart Healthy Diet Activities you can perform: Weight Bearing as Hans[place] Scheduled Appointment: Fay harvey Discharge Time > 30 minutes Mental Status Examination Appearance: Appropriate Consciousness: Alert Orientation: x4 Motor Activity: Normal gait Speech: Unremarkable Language: Adequate Fund of Knowledge: Adequate Attention and Concentration: Adequate Memory: Unremarkable, Impaired Mood: Appropriate Affect: Appropriate Thought Process & Associations: Intact Thought Content: Appropriate Hallucination Type: None Delusion Type: None Suicidal Ideation: No Suicidal Plan: No Suicidal Intention: No Homicidal Ideation: No Homicidal Plan: No Homicidal Intention: No Insight: Fair Judgment: Impulsive Discharge/Advance Care Plan Health Problems: (1) Major depressive disorder, single episode Goals to promote your health * To prevent worsening of your condition and complications * To maintain your health at the optimal level Directions to meet your goals Take your medications as prescribed Follow your dietary instruction Follow activity as directed Keep your appointments as scheduled Take your immunizations and boosters as scheduled If your symptoms worsen call your PCP, if no PCP go to Urgent Care Center or Emergency Room For 18/01 questions related to your inpatient stay or results of tests pending at discharge, please contact Dr. Lencho Velasquez at Smoking is Dangerous to Your Health. Avoid second hand smoking Lencho Velasquez MD Nov 26, 2017 18:20
== END 2017-11-26 15:50 | DRG 881 ==
LOC: H260 12:35
PROVIDERS: ADMIT Student in an Organized Health Care Education/Training Program; ATTEND Student in an Organized Health Care Education/Training Program
DX: F32.9 Major depressive disorder, single episode, unspecified (principal); I48.2 Chronic atrial fibrillation; Z79.01 Long term (current) use of anticoagulants; J44.9 Chronic obstructive pulmonary disease, unspecified; M54.9 Dorsalgia, unspecified; G89.29 Other chronic pain; I10 Essential (primary) hypertension; E78.5 Hyperlipidemia, unspecified; K21.9 Gastro-esophageal reflux disease without esophagitis; G47.30 Sleep apnea, unspecified; E11.9 Type 2 diabetes mellitus without complications; Z79.84 Long term (current) use of oral hypoglycemic drugs; K59.09 Other constipation; R19.7 Diarrhea, unspecified; Z85.828 Personal history of other malignant neoplasm of skin; Z96.651 Presence of right artificial knee joint; Z87.891 Personal history of nicotine dependence
CPT/HCPCS: 74018; 80048; 80061; 82948; 83036; 84484; 85610; 93005